=== PATIENT | male | born 1985 | race Caucasian/White ===

== ENCOUNTER 2020-02-19 01:20 | Emergency (ER) | payer OTHER ==
[~2020-02-19] VITALS: Ht 182.9 cm; Wt 100.9 kg
--- NOTE | 2020-02-19 01:23 | ED General ---
General Chief Complaint: Chest Pain Stated Complaint: CHEST PAIN Source of Information: Patient History of Present Illness Date Seen by Provider: Feb 19, 2020 Time Seen by Provider: 01:23 Initial Comments Patient is a 34-year-old otherwise healthy male who comes to the emergency department today complaining of sternal chest pain. He complains of pain of the left side of his chest and left-sided sternum. It is described to be dull achy pain. He has been having it for about one week. Pain is nonradiating. No aggravating or alleviating factors. No prior history of chronic health conditions with his doctor did recently started medication for anxiety of blood pressure, propranolol. No recent cough, fever, chills. Patient was evaluated by his primary doctor for the same complaint less than 48 hours earlier and it was felt at that time that his symptoms were secondary to anxiety. He comes to the ER tonight because he was sleeping and he awoke again with the same pain over the left side of his chest. He states the pain causes symptoms sometimes feel short of breath but he does not describe dyspnea on exertion or orthopnea. Allergies and Home Medications Allergies Coded Allergies: tramadol (Verified Allergy, Unknown, 02/19/20) Patient Home Medication List Home Medication List Reviewed: Yes Review of Systems Review of Systems Constitutional: no symptoms reported EENTM: no symptoms reported Respiratory: see HPI Cardiovascular: see HPI Gastrointestinal: no symptoms reported Genitourinary: no symptoms reported Musculoskeletal: no symptoms reported Skin: no symptoms reported Psychiatric/Neurological: Anxiety All Other Systems Reviewed Negative Unless Noted: Yes Physical Exam Vital Signs Vital Signs - First Documented 02/19/20 01:29 Temp 36.3 Pulse 81 Resp 18 B/P (MAP) 148/92 (110) Pulse Ox 98 O2 Delivery Room Air Capillary Refill : Height, Weight, BMI Height: '" Weight: lbs. oz. kg; BMI Method: General Appearance: No Apparent Distress, WD/WN HEENT: PERRL/EOMI, TMs Normal Neck: Full Range of Motion Respiratory: Lungs Clear, Normal Breath Sounds Cardiovascular: Regular Rate, Rhythm, No Edema Extremity: Normal Capillary Refill, No Calf Tenderness Neurologic/Psychiatric: Alert, Oriented x3 Skin: Normal Color, Warm/Dry Progress/Results/Core Measures Suspected Sepsis SIRS Temperature: Pulse: Respiratory Rate: Laboratory Tests 02/19/20 00:40: White Blood Count 3.9L Blood Pressure / Mean: Laboratory Tests 02/19/20 00:40: Platelet Count 43L 02/19/20 01:40: Creatinine 1.00 Results/Orders Lab Results Laboratory Tests Test 02/19/20 00:40 02/19/20 01:40 Range/Units White Blood Count 3.9 L 4.3-11.0 10^3/uL Red Blood Count 4.33 L 4.35-5.85 10^6/uL Hemoglobin 13.2 L 13.3-17.7 G/DL Hematocrit 40 40-54 % Mean Corpuscular Volume 92 80-99 FL Mean Corpuscular Hemoglobin 30 25-34 PG Mean Corpuscular Hemoglobin Concent 33 32-36 G/DL Red Cell Distribution Width 11.9 10.0-14.5 % Platelet Count 43 L 130-400 10^3/uL Mean Platelet Volume 13.0 H 7.4-10.4 FL Neutrophils (%) (Auto) 41 L 42-75 % Lymphocytes (%) (Auto) 47 H 12-44 % Monocytes (%) (Auto) 8 0-12 % Eosinophils (%) (Auto) 3 0-10 % Basophils (%) (Auto) 1 0-10 % Neutrophils # (Auto) 1.6 L 1.8-7.8 X 10^3 Lymphocytes # (Auto) 1.9 1.0-4.0 X 10^3 Monocytes # (Auto) 0.3 0.0-1.0 X 10^3 Eosinophils # (Auto) 0.1 0.0-0.3 10^3/uL Basophils # (Auto) 0.0 0.0-0.1 10^3/uL D-Dimer 0.14 0.00-0.49 UG/ML Sodium Level 138 135-145 MMOL/L Potassium Level 5.3 H 3.6-5.0 MMOL/L Chloride Level 104 98-107 MMOL/L Carbon Dioxide Level 23 21-32 MMOL/L Anion Gap 11 5-14 MMOL/L Blood Urea Nitrogen 17 7-18 MG/DL Creatinine 1.00 0.60-1.30 MG/DL Estimat Glomerular Filtration Rate > 60 BUN/Creatinine Ratio 17 Glucose Level 100 70-105 MG/DL Calcium Level 9.5 8.5-10.1 MG/DL Troponin I < 0.30 <0.30 NG/ML My Orders Orders - RUIZ,BOOM L DO Ed Iv/Invasive Line Start (02/19/20 01:23) Cbc With Automated Diff (02/19/20 01:23) Basic Metabolic Panel (02/19/20 01:23) Troponin I Fs (02/19/20 01:23) Ekg Tracing (02/19/20 01:23) Chest 1 View Ap/Pa Only (02/19/20 01:23) Fibrin Degradation Products (02/19/20 01:24) Vital Signs/I&O 02/19/20 02/19/20 01:29 01:29 Temp 36.3 Pulse 81 Resp 18 B/P (MAP) 148/92 (110) Pulse Ox 98 O2 Delivery Room Air Room Air Capillary Refill : Progress Note : Time: :30 Progress Note Patient is seen and examined. EKG is completed. No STEMI. We will check troponin and dimer and labs. Trachea also ordered. 02:20: All results are reviewed. Patient is resting comfortably and with normal vitals other than mildly elevated blood pressure. EKG is reassuring and no acute ST changes. Troponin is not elevated. Chest x-ray is nonacute. Dimer is not elevated. Unclear cause for his symptoms today but no emergency causes likely present for his chest pain. He is recommended to continue to follow the recommendations of his primary care physician, use Tylenol or Motrin for discomfort. Follow-up as needed. ECG Initial ECG Impression Date: Feb 19, 2020 Initial ECG Impression Time: 01:30 Initial ECG Rate: 70 Initial ECG Rhythm: Normal Sinus Departure Impression Primary Impression: Other chest pain Disposition: HOME, SELF-CARE Condition: Stable BOOM RUIZ DO Feb 19, 2020 01:23
--- OUTSIDE RECORDS SUMMARY | 2020-02-19 01:29 | XMS REPORT | Continuity of Care Document ---
Author Organization Unknown Address Unknown Phone Unavailable Allergies There is no data. Medications There is no data. Problems There is no data. Procedures There is no data. Results There is no data. Encounters ACCT No. Visit Date/Time Discharge Status Pt. Type Provider Facility Loc./Unit Complaint [id number] 02/19/2020 01:25:[address] Emergency BOOM RUIZ DO [facility] ER FS CHEST PAIN
[2020-02-19 01:55] LABS: BASOPHILS % (AUTO) 1 % (0-10); EOSINOPHILS # (AUTO) 0.1 10^3/uL (0.0-0.3); EOSINOPHILS % (AUTO) 3 % (0-10); HEMATOCRIT 40 % (40-54); HEMOGLOBIN 13.2 G/DL (13.3-17.7); LYMPHOCYTES # (AUTO) 1.9 X 10^3 (1.0-4.0); LYMPHOCYTES % (AUTO) 47 % (12-44); MEAN CORPUSCULAR HEMOGLOBIN 30 PG (25-34); MEAN CORPUSCULAR HGB CONC 33 G/DL (32-36); MEAN CORPUSCULAR VOLUME 92 FL (80-99); MONOCYTES # (AUTO) 0.3 X 10^3 (0.0-1.0); MONOCYTES % (AUTO) 8 % (0-12); NEUTROPHILS # (AUTO) 1.6 X 10^3 (1.8-7.8); NEUTROPHILS % (AUTO) 41 % (42-75); PLATELET COUNT 43 10^3/uL (130-400); RED CELL DISTRIBUTION WIDTH 11.9 % (10.0-14.5); WHITE BLOOD COUNT 3.9 10^3/uL (4.3-11.0)
[2020-02-19 02:08] LABS: BUN/CREATININE RATIO 17; CALCIUM 9.5 MG/DL (8.5-10.1); CARBON DIOXIDE 23 MMOL/L (21-32); CHLORIDE 104 MMOL/L (98-107); GFR ESTIMATED > 60; GLUCOSE 100 MG/DL (70-105); POTASSIUM 5.3 MMOL/L (3.6-5.0); SODIUM 138 MMOL/L (135-145)
[2020-02-19] MEDS ORDERED: IBUP-1780 PO (02:30)
[2020-02-19 02:32] VITALS: BP 117/79
--- NOTE | 2020-02-19 07:06 | Diagnostic Imaging Report ---
INDICATION: Chest pain. No prior examinations available for comparison. FINDINGS: The heart size, mediastinal configuration, and pulmonary vascularity are within normal limits. There is no pleural effusion, pneumothorax, or pneumonia. The osseous structures are unremarkable. IMPRESSION: No acute cardiopulmonary abnormality. Dictated by: Dictated on workstation # [id number]
== END 2020-02-19 02:32 | disposition home or self-care (01) ==
LOC: ER FS 01:25
DX: R07.89 Other chest pain (principal); Z88.5 Allergy status to narcotic agent
CPT/HCPCS: 36415; 71045; 80048; 84484; 85025; 85379; 93005

== ENCOUNTER 2020-02-23 08:38 | Outpatient (RCR) | payer OTHER ==
[~2020-02-23 08:38] MED LIST: IBUP-1780 PO
== END 2020-05-23 | disposition home or self-care (01) ==
LOC: CARD 08:38
PROVIDERS: ATTEND Nurse Practitioner
DX: R00.2 Palpitations (principal)
CPT/HCPCS: 93225; 93226

== ENCOUNTER → 2020-02-29 | Outpatient (CLI) | payer OTHER | LOC: CARD 09:30 | PROVIDERS: ATTEND Internal Medicine Cardiovascular Disease | DX: I34.0 Nonrheumatic mitral (valve) insufficiency (principal); I51.7 Cardiomegaly; E66.9 Obesity, unspecified; R00.2 Palpitations | CPT/HCPCS: 93017; 93306 ==

== ENCOUNTER 2020-09-24 01:33 | Emergency (ER) | payer OTHER ==
--- NOTE | 2020-09-24 01:58 | ED Chest Pain ---
General Chief Complaint: Chest Pain Stated Complaint: CHEST TIGHTNESS Nursing Triage Note: Pt complaining of chest tightness that has been intermittent throughout the day and worse tonight Nursing Sepsis Screen: No Definite Risk Source: patient Exam Limitations: no limitations History of Present Illness Date Seen by Provider: Sep 24, 2020 Time Seen by Provider: 01:49 35-year-old male with history of hypertension, depression and anxiety presents with chest pain. Patient states that the pain has been present intermittently for about 3 days. Describes the pain as sharp, tight, cold, does not radiate, not associated with nausea, vomiting, shortness of air, located left upper chest, reproducible to palpation, nonexertional, not alleviated or aggravated by anything. Patient does not have a history of diabetes, alcohol use, tobacco use, drug use. No family history of coronary artery disease. No other complaints. No personal history of CAD. Of note, patient has a history of anxiety and recently started taking citalopram. Allergies and Home Medications Allergies Coded Allergies: tramadol (Verified Allergy, Unknown, 02/19/20) Home Medications Ibuprofen 800 Mg Tablet, 800 MG PO Q8H PRN for PAIN Prescribed by: BOOM RUIZ on 02/19/20 0230 Patient Home Medication List Home Medication List Reviewed: Yes Review of Systems Review of Systems Constitutional: No chills, No fever EENTM: No Blurred Vision, No Double Vision Respiratory: Denies Cough, Denies Shortness of Air Cardiovascular: Chest Pain; Denies Irregular Heart Rate, Denies Lightheadedness Gastrointestinal: Denies Abdominal Pain, Denies Nausea, Denies Vomiting Skin: No change in color, No lesions, No rash Psychiatric/Neurological: Denies Headache, Denies Numbness, Denies Tingling All Other Systems Reviewed Negative Unless Noted: Yes Past Mtctlat-Asbvje-Gsbwaf Hx Past Med/Social Hx: Reviewed Nursing Past Med/Soc Hx Patient Social History Alcohol Use: Denies Use Smoking Status: Never a Smoker 2nd Hand Smoke Exposure: No Recent Infectious Disease Expo: No Recent Hopitalizations: No Seasonal Allergies Seasonal Allergies: No Past Medical History Surgeries: No Respiratory: No Cardiac: No Neurological: No Genitourinary: No Gastrointestinal: Yes Gastroesophageal Reflux Musculoskeletal: No Endocrine: No HEENT: No Cancer: No Psychosocial: No Integumentary: No Blood Disorders: No Family Medical History Reviewed Nursing Family Hx Physical Exam Vital Signs Vital Signs - First Documented 3/15/21 01:35 Temp 36.2 Pulse 63 Resp 16 B/P (MAP) 114/67 (83) Pulse Ox 95 O2 Delivery Room Air Capillary Refill : Less Than 3 Seconds Height, Weight, BMI Height: '" Weight: lbs. oz. kg; 30.00 BMI Method: General Appearance: No Apparent Distress, WD/WN HEENT: PERRL/EOMI, Normal ENT Inspection Neck: Normal Inspection, Non Tender, Supple Respiratory: Lungs Clear, Normal Breath Sounds, Other (chest ttp) Cardiovascular: Regular Rate, Rhythm, No Edema, No Murmur, Normal Peripheral Pulses Gastrointestinal: Normal Bowel Sounds, No Organomegaly Extremity: Normal Capillary Refill, Normal Inspection Neurologic/Psychiatric: Alert, Oriented x3, No Motor/Sensory Deficits, Normal Mood/Affect, cylinder checker II-XII Norm as Tested Skin: Normal Color, Warm/Dry Lymphatic: No Adenopathy Progress/Results/Core Measures Results/Orders Lab Results Laboratory Tests Test 09/24/20 01:48 09/24/20 03:20 Range/Units White Blood Count 7.2 4.3-11.0 10^3/uL Red Blood Count 4.72 4.35-5.85 10^6/uL Hemoglobin 14.2 13.3-17.7 G/DL Hematocrit 42 40-54 % Mean Corpuscular Volume 90 80-99 FL Mean Corpuscular Hemoglobin 30 25-34 PG Mean Corpuscular Hemoglobin Concent 34 32-36 G/DL Red Cell Distribution Width 11.9 10.0-14.5 % Platelet Count 294 130-400 10^3/uL Mean Platelet Volume 9.6 7.4-10.4 FL Immature Granulocyte % (Auto) 1 % Neutrophils (%) (Auto) 48 42-75 % Lymphocytes (%) (Auto) 40 12-44 % Monocytes (%) (Auto) 8 0-12 % Eosinophils (%) (Auto) 4 0-10 % Basophils (%) (Auto) 1 0-10 % Neutrophils # (Auto) 3.4 1.8-7.8 X 10^3 Lymphocytes # (Auto) 2.9 1.0-4.0 X 10^3 Monocytes # (Auto) 0.6 0.0-1.0 X 10^3 Eosinophils # (Auto) 0.3 0.0-0.3 10^3/uL Basophils # (Auto) 0.1 0.0-0.1 10^3/uL Immature Granulocyte # (Auto) 0.0 0.0-0.1 10^3/uL Prothrombin Time 12.8 12.2-14.7 SEC INR Comment 0.9 0.8-1.4 Sodium Level 137 135-145 MMOL/L Potassium Level 3.9 3.6-5.0 MMOL/L Chloride Level 101 98-107 MMOL/L Carbon Dioxide Level 25 21-32 MMOL/L Anion Gap 11 5-14 MMOL/L Blood Urea Nitrogen 15 7-18 MG/DL Creatinine 1.05 0.60-1.30 MG/DL Estimat Glomerular Filtration Rate > 60 BUN/Creatinine Ratio 14 Glucose Level 114 H 70-105 MG/DL Calcium Level 9.2 8.5-10.1 MG/DL Corrected Calcium 9.0 8.5-10.1 MG/DL Magnesium Level 2.0 1.6-2.4 MG/DL Total Bilirubin 0.4 0.1-1.0 MG/DL Aspartate Amino Transf (AST/SGOT) 17 5-34 U/L Alanine Aminotransferase (ALT/SGPT) 21 0-55 U/L Alkaline Phosphatase 50 40-136 U/L Troponin I < 0.30 < 0.30 <0.30 NG/ML Total Protein 7.0 6.4-8.2 GM/DL Albumin 4.2 3.2-4.5 GM/DL Lipase 48 8-78 U/L My Orders Orders - ANNA HINSON MD Cbc With Automated Diff (09/24/20:52) Magnesium (09/24/20:52) Chest 1 View Ap/Pa Only (09/24/20:52) Ekg Tracing (09/24/20:52) Comprehensive Metabolic Panel (09/24/20:52) Protime With Inr (09/24/20:52) O2 (09/24/20:52) Monitor-Rhythm Ecg Trace Only (09/24/20:52) Aspirin Chewable Tablet (Baby Aspirin Ch (09/24/20 02:00) Ed Iv/Invasive Line Start (09/24/20:52) Lipase (09/24/20:52) Troponin I Fs (3/15/21 01:52) Troponin I Fs (09/24/20 03:15) Ekg Tracing (09/24/20 03:33) Lactated Ringers (Lr 1000 Ml Iv Solution (09/24/20 05:00) Lidocaine 2% Viscous 15 Ml (Xylocaine Vi (09/24/20 04:47) Antacid Suspension (Mylanta Suspension (09/24/20 04:47) Antacid Suspension (Mylanta Suspension (09/24/20 05:00) Lidocaine 2% Viscous 15 Ml (Xylocaine Vi (09/24/20 05:00) Ondansetron Injection (Zofran Injectio (09/24/20 05:00) Ondansetron Injection (Zofran Injectio (09/24/20 04:55) Medications Given in ED Current Medications Medications Dose Ordered Sig/Nishant Route Start Time Stop Time Status Last Admin Dose Admin Al Hydrox/Mg Hydrox/Simethicone 30 ml ONCE ONCE PO 09/24/20 05:00 09/24/20 05:01 DC 09/24/20 04:59 30 ML Aspirin 324 mg ONCE ONCE PO 09/24/20 02:00 09/24/20 02:01 DC 09/24/20 01:58 324 MG Lidocaine HCl 15 ml ONCE ONCE PO 09/24/20 05:00 09/24/20 05:01 DC 09/24/20 04:59 15 ML Ondansetron HCl 4 mg ONCE ONCE IVP 09/24/20 05:00 09/24/20 05:01 DC 09/24/20 05:01 4 MG Vital Signs/I&O 09/24/20 01:35 Temp 36.2 Pulse 63 Resp 16 B/P (MAP) 114/67 (83) Pulse Ox 95 O2 Delivery Room Air 2 Blood Pressure Mean: 83 Progress Progress Note : Progress Note 0300 - pt remains chest pain free. discussed repeating troponin. pt voiced agreement 0400 - pt remains chest pain free. repeat troponin unchanged. called pt's hydroponics grower x 2, no answer and no way to leave message 0430 - contact refrigeration houseman who will get in contact with cardiology 0445 - troponin values reported by lab has been amended by lab from 0.3 to <0.3. discussed with patient who still feels lightheaded. stood patient to check bp and he felt dizzy, hr dropped to 50s, and bp 90s systolic. IVF started. discussed need to see pcp about med changes. 0550 - patient chest pain free, blood pressure 120s, patient feels much better after ivf 35-year-old male presenting with chest pain and dizziness. EKG and troponin negative for ACS. Chest x-ray negative for pneumonia, pleural effusion, pneumothorax. Lab work-up reassuring this is not pancreatitis, kidney problems. Patient orthostatic on standing and feels better after IV fluids, IV antiemetics, and GI cocktail. Discussed need for medication management and likely will need to come off his beta-yoav or at a minimum decrease the dose. Discussed with patient and patient's father who both voiced understanding and agreement with plan of care Initial ECG Impression Date: Sep 24, 2020 Initial ECG Impression Time: 01:38 Initial ECG Rate: 59 Initial ECG Rhythm: Normal Sinus Initial ECG Intervals: Normal Initial ECG Impression: Normal, Nonspecific Changes Initial ECG Comparisson: Unchanged EKG : EKG Time: 03:34 Rate: 64 Rhythm: Normal Sinus Intervals: Normal, IN, QRS ECG Comparisson: Unchanged ECG Impression: Normal Diagnostic Imaging Diagonstic Imaging: Xray Plain Films/CT/US/NM/MRI: chest Comments negative for acute cardiopulmonary pathology Departure Impression Primary Impression: Chest pain Qualified Codes: R07.9 - Chest pain, unspecified Additional Impressions: Orthostatic dizziness Drug interaction Disposition: 01 HOME, SELF-CARE Condition: Improved Departure-Patient Inst. Decision time for Depature: 05:52 Referrals: NO,LOCAL PHYSICIAN (PCP/Family) Primary Care Physician Patient Instructions: Chest Pain That Is Not Caused by the Heart (DC), Dizziness, Nonvertigo, (DC) ANNA HINSON MD Sep 24, 2020 01:58
[2020-09-24] MEDS ORDERED: ASPIRIN 81 MG CHEW (CHILDREN'S ASA) PO ONE (02:00)
[2020-09-24 02:22] LABS: HEMATOCRIT 42 % (40-54); HEMOGLOBIN 14.2 G/DL (13.3-17.7); MEAN CORPUSCULAR HEMOGLOBIN 30 PG (25-34); WHITE BLOOD COUNT 7.2 10^3/uL (4.3-11.0)
[2020-09-24 02:23] LABS: BASOPHILS # (AUTO) 0.1 10^3/uL (0.0-0.1); BASOPHILS % (AUTO) 1 % (0-10); EOSINOPHILS # (AUTO) 0.3 10^3/uL (0.0-0.3); EOSINOPHILS % (AUTO) 4 % (0-10); LYMPHOCYTES # (AUTO) 2.9 X 10^3 (1.0-4.0); LYMPHOCYTES % (AUTO) 40 % (12-44); MEAN CORPUSCULAR HGB CONC 34 G/DL (32-36); MEAN CORPUSCULAR VOLUME 90 FL (80-99); MEAN PLATELET VOLUME 9.6 FL (7.4-10.4); MONOCYTES # (AUTO) 0.6 X 10^3 (0.0-1.0); MONOCYTES % (AUTO) 8 % (0-12); NEUTROPHILS # (AUTO) 3.4 X 10^3 (1.8-7.8); NEUTROPHILS % (AUTO) 48 % (42-75); PLATELET COUNT 294 10^3/uL (130-400)
[2020-09-24 02:48] LABS: CARBON DIOXIDE 25 MMOL/L (21-32); CHLORIDE 101 MMOL/L (98-107); POTASSIUM 3.9 MMOL/L (3.6-5.0); SODIUM 137 MMOL/L (135-145)
[2020-09-24 02:49] LABS: ALANINE AMINOTRANSFERASE 21 U/L (0-55); ALKALINE PHOSPHATASE 50 U/L (40-136); BILIRUBIN,TOTAL 0.4 MG/DL (0.1-1.0); BUN/CREATININE RATIO 14; CALCIUM 9.2 MG/DL (8.5-10.1); CREATININE SERUM 1.05 MG/DL (0.60-1.30); GFR ESTIMATED > 60; GLUCOSE 114 MG/DL (70-105)
[2020-09-24 02:50] LABS: ALBUMIN 4.2 GM/DL (3.2-4.5); LIPASE 48 U/L (8-78)
[2020-09-24 03:03] LABS: INR 0.9 (0.8-1.4); PROTHROMBIN TIME PATIENT 12.8 SEC (12.2-14.7)
[2020-09-24] MEDS ORDERED: ANTACID SUSP 30 ML UDC (MYLANTA) ONE (04:47)
[2020-09-24] MEDS ORDERED: LIDOCAINE 2% VISCOUS 15 ML UDC ONE (04:47)
[2020-09-24] MEDS ORDERED: ONDANSETRON 4 MG/2 ML (SDV) Z0FRAN ONE (04:55)
[2020-09-24] MEDS ORDERED: ONDANSETRON 4 MG/2 ML (SDV) Z0FRAN IVP ONE (05:00)
[2020-09-24] MEDS ORDERED: LACTATED RINGERS 1,000 ML IV SCH (05:00)
[2020-09-24] MEDS ORDERED: ANTACID SUSP 30 ML UDC (MYLANTA) PO ONE (05:00)
[2020-09-24] MEDS ORDERED: LIDOCAINE 2% VISCOUS 15 ML UDC PO ONE (05:00)
[2020-09-24] MEDS ORDERED: LIDOCAINE/ANTACID/DIPHENHYDRAMINE 1:1:1 PO PRN (05:00)
[2020-09-24 05:54] VITALS: BP 131/86
--- NOTE | 2020-09-24 06:58 | Diagnostic Imaging Report ---
Indication: Chest pain Comparison: 02/19/2020 Findings: Single view of the chest demonstrates clear lungs bilaterally. The heart is normal. There is no pneumothorax. Osseous structures normal. Impression: Negative chest Dictated by: Dictated on workstation # [id number]
== END 2020-09-24 06:02 | disposition home or self-care (01) ==
LOC: EDUNIT# 01:33 → ER FS 01:37
DX: R07.9 Chest pain, unspecified (principal); R42 Dizziness and giddiness; F41.9 Anxiety disorder, unspecified; Z88.5 Allergy status to narcotic agent
CPT/HCPCS: 36415; 71045; 80053; 83690; 83735; 84484; 85025; 85610; 93005; 93041

== ENCOUNTER 2021-03-30 04:05 | Emergency (ER) | payer OTHER ==
[~2021-03-30] VITALS: Ht 182.8 cm; Wt 102.2 kg
[2021-03-30] MEDS ORDERED: NS IV 1000 ML 1,000 ML IV STA (04:27)
--- NOTE | 2021-03-30 04:33 | ED General ---
General Chief Complaint: Chest Pain Stated Complaint: CHEST PAIN/LEFT ARM ACHING Source of Information: Patient History of Present Illness Date Seen by Provider: Mar 30, 2021 Time Seen by Provider: 04:07 Initial Comments 36-year-old male presenting with complaints of feeling his heart pounding and racing intermittently overnight. He states his symptoms started around 7 PM and persisted all night. He has some mild shortness of breath and cough. He denies any fever or chills. He states that he had some cough shortness of breath with allergy symptoms. He has been on metoprolol for a year or more to help with his blood pressure and heart rate. He states that his smart watch in the morning and show that his heart rate at times is gone up over 120 especially with activity. He does get some dizzy lightheaded sensation with change in position but it is better to some degree all the time since last night. He had some mild nausea with his symptoms started but never had any vomiting. Timing/Duration: 4-6 Hours Severity: Moderate Associated Systoms: Chest Pain (Pressure and sensation of his heart pounding), Cough (Occasional intermittent cough); No Diaphoresis, No Fever/Chills, No Headaches, No Loss of Appetite, No Malaise; Nausea/Vomiting (Nausea with the symptoms started but none now. No vomiting.); No Rash, No Seizure; Shortness of Air (Mild shortness of breath with allergy symptoms); No Syncope, No Weakness Allergies and Home Medications Allergies Coded Allergies: tramadol (Verified Allergy, Unknown, 02/19/20) Patient Home Medication List Home Medication List Reviewed: Yes Ibuprofen (Ibuprofen) 800 Mg Tablet, 800 MG PO Q8H PRN for PAIN Prescribed by: BOOM RUIZ on 02/19/20 0230 Pantoprazole Sodium (Pantoprazole Sodium) 40 Mg Tablet.dr, 40 MG PO DAILY Prescribed by: NURYS PARKS on 03/30/21 0587 Review of Systems Review of Systems Constitutional: see HPI; No chills, No fever EENTM: no symptoms reported Respiratory: see HPI Cardiovascular: see HPI; No edema; palpitations; No syncope Gastrointestinal: see HPI, nausea; No vomiting Genitourinary: no symptoms reported Musculoskeletal: other (Aching into his left arm) Skin: no symptoms reported Psychiatric/Neurological: No Symptoms Reported Past Mygbsvq-Bxbyrb-Enitvn Hx Patient Social History Tobacco Use?: No Use of E-Cig and/or Vaping dev: No Substance use?: No Alcohol Use?: No Pt feels they are or have been: No Seasonal Allergies Seasonal Allergies: No Past Medical History Surgeries: No Respiratory: No Cardiac: No Neurological: No Genitourinary: No Gastrointestinal: Yes Gastroesophageal Reflux Musculoskeletal: No Endocrine: No HEENT: No Cancer: No Psychosocial: No Integumentary: No Blood Disorders: No Physical Exam Vital Signs Vital Signs - First Documented 03/30/21 04:10 Temp 36.5 Pulse 88 Resp 15 B/P (MAP) 128/90 (103) Pulse Ox 96 O2 Delivery Room Air Capillary Refill : Less Than 3 Seconds Height, Weight, BMI Height: '" Weight: lbs. oz. 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 Norm as Tested Skin: Normal Color, Warm/Dry Progress/Results/Core Measures Suspected Sepsis SIRS Temperature: Pulse: Respiratory Rate: Laboratory Tests 03/30/21 04:18: White Blood Count 7.7 Blood Pressure / Mean: Laboratory Tests 03/30/21 04:18: Creatinine 1.01, INR Comment 0.9, Platelet Count 274, Total Bilirubin 0.5 Results/Orders Lab Results Laboratory Tests Test 03/30/21 04:18 Range/Units White Blood Count 7.7 4.3-11.0 10^3/uL Red Blood Count 4.82 4.30-5.52 10^6/uL Hemoglobin 14.7 13.3-17.7 g/dL Hematocrit 44 40-54 % Mean Corpuscular Volume 91 80-99 fL Mean Corpuscular Hemoglobin 30 25-34 pg Mean Corpuscular Hemoglobin Concent 34 32-36 g/dL Red Cell Distribution Width 12.9 10.0-14.5 % Platelet Count 274 130-400 10^3/uL Mean Platelet Volume 9.3 9.0-12.2 fL Neutrophils (%) (Auto) 54 42-75 % Lymphocytes (%) (Auto) 33 12-44 % Monocytes (%) (Auto) 9 0-12 % Eosinophils (%) (Auto) 4 0-10 % Basophils (%) (Auto) 1 0-10 % Neutrophils # (Auto) 4.1 1.8-7.8 X 10^3 Lymphocytes # (Auto) 2.6 1.0-4.0 X 10^3 Monocytes # (Auto) 0.7 0.0-1.0 X 10^3 Eosinophils # (Auto) 0.3 0.0-0.3 10^3/uL Basophils # (Auto) 0.1 0.0-0.1 10^3/uL Prothrombin Time 12.0 L 12.2-14.7 SEC INR Comment 0.9 0.8-1.4 Activated Partial Thromboplast Time 32 24-35 SEC Sodium Level 142 135-145 MMOL/L Potassium Level 3.5 L 3.6-5.0 MMOL/L Chloride Level 102 98-107 MMOL/L Carbon Dioxide Level 29 21-32 MMOL/L Anion Gap 11 5-14 MMOL/L Blood Urea Nitrogen 15 7-18 MG/DL Creatinine 1.01 0.60-1.30 MG/DL Estimat Glomerular Filtration Rate 83 BUN/Creatinine Ratio 15 Glucose Level 96 70-105 MG/DL Calcium Level 10.1 8.5-10.1 MG/DL Corrected Calcium 9.7 8.5-10.1 MG/DL Magnesium Level 1.9 1.6-2.4 MG/DL Total Bilirubin 0.5 0.1-1.0 MG/DL Aspartate Amino Transf (AST/SGOT) 21 5-34 U/L Alanine Aminotransferase (ALT/SGPT) 23 0-55 U/L Alkaline Phosphatase 53 40-136 U/L Troponin I < 0.30 <0.30 NG/ML Pro-B-Type Natriuretic Peptide 23.6 <75.0 PG/ML Total Protein 7.3 6.4-8.2 GM/DL Albumin 4.5 3.2-4.5 GM/DL My Orders Orders - NURYS PARKS MD Cbc With Automated Diff (03/30/21 04:26) Magnesium (03/30/21 04:26) Chest 1 View Ap/Pa Only (03/30/21 04:26) Ekg Tracing (03/30/21 04:26) Comprehensive Metabolic Panel (03/30/21 04:26) Protime With Inr (03/30/21 04:26) Partial Thromboplastin Time (03/30/21 04:26) Monitor-Rhythm Ecg Trace Only (03/30/21 04:26) Ed Iv/Invasive Line Start (03/30/21 04:26) Troponin I Fs (03/30/21 04:26) Probnp Fs (03/30/21 04:26) Ns Iv 1000 Ml (Sodium Chloride 0.9%) (03/30/21 04:27) Pantoprazole Injection (Protonix Injecti (03/30/21 04:53) Lidocaine 2% Viscous 15 Ml (Xylocaine Vi (03/30/21 05:18) Antacid Suspension (Mylanta Suspension (03/30/21 05:18) Vital Signs/I&O 03/30/21 04:10 Temp 36.5 Pulse 88 Resp 15 B/P (MAP) 128/90 (103) Pulse Ox 96 O2 Delivery Room Air Capillary Refill : Less Than 3 Seconds Progress Note #1: Progress Note Obtain electrocardiogram as well as chest x-ray and basic labs. Give a liter of fluid for hydration increasing labetalol to try with the dizziness when he changes positions. 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 Review of the chart as he states he saw Dr. Persaud years ago had a Holter monitor done. Progress Note #2: Progress Note Labs all appear stable mildly low potassium at 3.5. He has negative troponin at less than 0.3. His electrocardiogram appears stable from previous tracings in the system. He has no infiltrate on his chest x-ray but it does look like there might be a small hiatal hernia which could contribute to his symptoms. When ask ed about this and heartburn he does relate that he has had severe heartburn ever since he was a child. We will give a dose of Protonix and try a GI cocktail as he stated that in the past. Counseled on treatment for hiatal hernia and reflux. Advised to follow-up through the clinic and he might need a GI endoscopy scope to look at the esophagus and stomach. Given handout about potassium rich diet, gastritis and ulcer diet, hiatal hernia, palpitations ECG Initial ECG Impression Date: Mar 30, 2021 Initial ECG Impression Time: 04:09 Initial ECG Rate: 79 Initial ECG Rhythm: Normal Sinus Initial ECG Comparisson: Unchanged Comment Normal sinus rhythm with a heart rate of 79 bpm. NE interval [address] elevation. There are old Q waves in 2 3 and aVF. He has QT interval of 370 ms and a QTc interval of 425 ms. Appears similar to prior tracings in the system. Diagnostic Imaging Diagonstic Imaging: Xray Plain Films/CT/US/NM/MRI: chest Comments On my review of his 1 view chest x-ray is no acute change or effusion. Heart size is normal. It looks like he may have a small gas bubble for a possible hiatal hernia. Reviewed: Reviewed by Me Departure Impression Primary Impression: Heart palpitations Additional Impressions: Hypokalemia Hiatal hernia with GERD and esophagitis Disposition: HOME, SELF-CARE Condition: Stable Departure-Patient Inst. Decision time for Depature: 05:44 Referrals: JERMAINE KONG PANKAJ K MD NO,LOCAL PHYSICIAN (PCP) Primary Care Physician Patient Instructions: Acid Reflux, Adult and Adolescent ED, Hiatal Hernia (DC), High Potassium Diet, Palpitations ED, Ulcer and Gastritis Diet Add. Discharge Instructions: Try the medicine for acid reduction and helping with heartburn and hiatal hernia. Follow bland gastritis diet recommendations to help with heartburn and irritation to esophagus and stomach. Increase the potassium in your diet by adding potassium rich foods. Check with Dr. Nelson or call surgeon's office directly about EGD scope to look at lining of stomach and esophagus. Dr. Kong is the surgeon occupational therapist rehab manager this weekend. All discharge instructions reviewed with patient and/or family. Voiced understanding. Scripts Pantoprazole Sodium (Pantoprazole Sodium) 40 Mg Tablet. 40 MG PO DAILY for Hiatal Hernia/GERD for 30 Days, #30 TAB Prov: NURYS PARKS MD 03/30/21 Work/School Note: Work Release Form Date Seen in the Emergency Department: Mar 30, 2021 Return to Work: Mar 31, 2021 Restrictions: No Restrictions NURYS PARKS MD Mar 30, 2021 04:33
[2021-03-30 04:34] LABS: EOSINOPHILS % (AUTO) 4 % (0-10); HEMATOCRIT 44 % (40-54); HEMOGLOBIN 14.7 g/dL (13.3-17.7); LYMPHOCYTES % (AUTO) 33 % (12-44); MEAN CORPUSCULAR HEMOGLOBIN 30 pg (25-34); MEAN CORPUSCULAR HGB CONC 34 g/dL (32-36); MEAN CORPUSCULAR VOLUME 91 fL (80-99); MEAN PLATELET VOLUME 9.3 fL (9.0-12.2); MONOCYTES % (AUTO) 9 % (0-12); NEUTROPHILS % (AUTO) 54 % (42-75); PLATELET COUNT 274 10^3/uL (130-400); WHITE BLOOD COUNT 7.7 10^3/uL (4.3-11.0)
[2021-03-30 04:35] LABS: BASOPHILS # (AUTO) 0.1 10^3/uL (0.0-0.1); BASOPHILS % (AUTO) 1 % (0-10); EOSINOPHILS # (AUTO) 0.3 10^3/uL (0.0-0.3); LYMPHOCYTES # (AUTO) 2.6 X 10^3 (1.0-4.0); MONOCYTES # (AUTO) 0.7 X 10^3 (0.0-1.0); NEUTROPHILS # (AUTO) 4.1 X 10^3 (1.8-7.8)
[2021-03-30 04:52] LABS: POTASSIUM 3.5 MMOL/L (3.6-5.0)
[2021-03-30 04:53] LABS: ALBUMIN 4.5 GM/DL (3.2-4.5); BILIRUBIN,TOTAL 0.5 MG/DL (0.1-1.0); CALCIUM 10.1 MG/DL (8.5-10.1); CREATININE SERUM 1.01 MG/DL (0.60-1.30); MAGNESIUM 1.9 MG/DL (1.6-2.4); TOTAL PROTEIN 7.3 GM/DL (6.4-8.2)
[2021-03-30] MEDS ORDERED: PANTOPRAZOLE 40 MG (PROTONIX) VIAL IV STA (04:53)
[2021-03-30 04:55] LABS: INR 0.9 (0.8-1.4)
[2021-03-30] MEDS ORDERED: LIDOCAINE 2% VISCOUS 15 ML UDC PO STA (05:18)
[2021-03-30] MEDS ORDERED: ANTACID SUSP 30 ML UDC (MYLANTA) PO STA (05:18)
[2021-03-30] MEDS ORDERED: PANT40TA52 PO (05:44)
--- NOTE | 2021-03-30 06:05 | Diagnostic Imaging Report ---
INDICATION: Chest pain, palpitations, left arm aching.. TECHNIQUE: Single view chest 4:20 AM. CORRELATION STUDY: 09/24/2020 FINDINGS: The heart size, mediastinal configuration and pulmonary vascularity are within normal limits. The lungs are clear with no consolidating infiltrate. There is no significant effusion or pneumothorax. IMPRESSION: 1. Negative appearing portable chest. Dictated by: Dictated on workstation # [id number]
[2021-03-30 06:10] VITALS: BP 116/77
== END 2021-03-30 06:01 | disposition home or self-care (01) ==
LOC: EDUNIT# 04:05 → ER FS 04:08
DX: R00.2 Palpitations (principal); E87.6 Hypokalemia; K44.9 Diaphragmatic hernia without obstruction or gangrene; K21.00 Gastro-esophageal reflux disease with esophagitis, without bleeding
CPT/HCPCS: 36415; 71045; 80053; 83735; 83880; 84484; 85025; 85610; 85730; 93005; 93041

== ENCOUNTER 2021-03-31 09:08 | Emergency (ER) | payer OTHER ==
[~2021-03-31] VITALS: Ht 182.9 cm; Wt 101.4 kg
[~2021-03-31 09:08] MED LIST changes: +PANT40TA52 PO
[2021-03-31] MEDS ORDERED: NS IV 1000 ML 1,000 ML IV STA (09:28)
[2021-03-31] MEDS ORDERED: PANTOPRAZOLE 40 MG (PROTONIX) VIAL IV STA (09:28)
[2021-03-31] MEDS ORDERED: KETOROLAC 30 MG/ML VIAL IVP STA (09:28)
[2021-03-31] MEDS ORDERED: ONDANSETRON 4 MG/2 ML (SDV) Z0FRAN IVP STA (09:28)
--- NOTE | 2021-03-31 09:34 | ED General ---
General Chief Complaint: Chest Pain Stated Complaint: CHEST PAIN/SOA/NAUSEA Source of Information: Patient, Old Records History of Present Illness Date Seen by Provider: Mar 31, 2021 Time Seen by Provider: 09:10 Initial Comments 36-year-old male presenting with recurrent and continuing left-sided chest discomfort and feeling like his heart is pounding. He had an episode of nausea with vomiting this morning. He gets short of breath and feels like his heart races especially when he stands up or is exerting himself. He denies any fever or chills. He had some loose stools. He denies pain or burning with urination. He states this all feels similar to his prior episodes as well as when he was seen yesterday but it usually goes away by now. When he tried to return to work today he was unable to do that because he was so nauseated and lightheaded when trying to stand and move around. He states he was having issues overnight all night that kept him from sleeping. Associated Systoms: Chest Pain (LUQ and Left lower chest and epigastric abdomen), Diaphoresis (reports sweating with increased pain at night when he lays down); No Fever/Chills, No Headaches; Loss of Appetite, Malaise, Nausea/Vomiting; No Seizure; Shortness of Air; No Syncope, No Weakness Allergies and Home Medications Allergies Coded Allergies: tramadol (Verified Allergy, Unknown, 02/19/20) Patient Home Medication List Home Medication List Reviewed: Yes Ibuprofen (Ibuprofen) 800 Mg Tablet, 800 MG PO Q8H PRN for PAIN Prescribed by: BOOM RUIZ on 02/19/20 0230 Pantoprazole Sodium (Pantoprazole Sodium) 40 Mg Tablet.dr, 40 MG PO DAILY Prescribed by: NURYS PARKS on 03/30/21 0533 Review of Systems Review of Systems Constitutional: No chills, No fever EENTM: no symptoms reported Respiratory: short of breath (Especially with exertion) Cardiovascular: see HPI Gastrointestinal: see HPI Genitourinary: no symptoms reported Musculoskeletal: no symptoms reported Skin: no symptoms reported Psychiatric/Neurological: Anxiety (Worried about what was causing his symptoms.) Hematologic/Lymphatic: Denies Blood Clots, Denies Easy Bleeding, Denies Easy Bruising Past Jliffpm-Pithdz-Isugkp Hx Seasonal Allergies Seasonal Allergies: No Past Medical History Surgeries: No Respiratory: No Cardiac: No Neurological: No Genitourinary: No Gastrointestinal: Yes Gastroesophageal Reflux Musculoskeletal: No Endocrine: No HEENT: No Cancer: No Psychosocial: No Integumentary: No Blood Disorders: No Physical Exam Vital Signs Vital Signs - First Documented 03/31/21 09:16 Temp 37.2 Pulse 85 Resp 16 B/P (MAP) 114/79 (91) Pulse Ox 96 O2 Delivery Room Air Capillary Refill : Height, Weight, BMI Height: '" Weight: lbs. oz. 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 Norm as Tested Skin: Normal Color, Warm/Dry Progress/Results/Core Measures Suspected Sepsis SIRS Temperature: Pulse: Respiratory Rate: Laboratory Tests 03/31/21 10:00: White Blood Count 6.3 Blood Pressure / Mean: Laboratory Tests 03/31/21 10:00: Creatinine 1.00, INR Comment 0.9, Platelet Count 304, Total Bilirubin 0.4 Results/Orders Lab Results Laboratory Tests Test 03/31/21 10:00 Range/Units White Blood Count 6.3 4.3-11.0 10^3/uL Red Blood Count 4.82 4.30-5.52 10^6/uL Hemoglobin 14.4 13.3-17.7 g/dL Hematocrit 43 40-54 % Mean Corpuscular Volume 90 80-99 fL Mean Corpuscular Hemoglobin 30 25-34 pg Mean Corpuscular Hemoglobin Concent 33 32-36 g/dL Red Cell Distribution Width 12.4 10.0-14.5 % Platelet Count 304 130-400 10^3/uL Mean Platelet Volume 9.3 9.0-12.2 fL Immature Granulocyte % (Auto) 1 % Neutrophils (%) (Auto) 68 42-75 % Lymphocytes (%) (Auto) 23 12-44 % Monocytes (%) (Auto) 6 0-12 % Eosinophils (%) (Auto) 2 0-10 % Basophils (%) (Auto) 1 0-10 % Neutrophils # (Auto) 4.3 1.8-7.8 X 10^3 Lymphocytes # (Auto) 1.5 1.0-4.0 X 10^3 Monocytes # (Auto) 0.4 0.0-1.0 X 10^3 Eosinophils # (Auto) 0.1 0.0-0.3 10^3/uL Basophils # (Auto) 0.0 0.0-0.1 10^3/uL Immature Granulocyte # (Auto) 0.0 0.0-0.1 10^3/uL Prothrombin Time 12.7 12.2-14.7 SEC INR Comment 0.9 0.8-1.4 Activated Partial Thromboplast Time 32 24-35 SEC Sodium Level 139 135-145 MMOL/L Potassium Level 4.1 3.6-5.0 MMOL/L Chloride Level 101 98-107 MMOL/L Carbon Dioxide Level 29 21-32 MMOL/L Anion Gap 9 5-14 MMOL/L Blood Urea Nitrogen 9 7-18 MG/DL Creatinine 1.00 0.60-1.30 MG/DL Estimat Glomerular Filtration Rate 84 BUN/Creatinine Ratio 9 Glucose Level 92 70-105 MG/DL Calcium Level 9.7 8.5-10.1 MG/DL Corrected Calcium 9.3 8.5-10.1 MG/DL Magnesium Level 2.1 1.6-2.4 MG/DL Total Bilirubin 0.4 0.1-1.0 MG/DL Aspartate Amino Transf (AST/SGOT) 22 5-34 U/L Alanine Aminotransferase (ALT/SGPT) 26 0-55 U/L Alkaline Phosphatase 50 40-136 U/L Troponin I < 0.30 <0.30 NG/ML Pro-B-Type Natriuretic Peptide 50.3 <75.0 PG/ML Total Protein 7.4 6.4-8.2 GM/DL Albumin 4.5 3.2-4.5 GM/DL Lipase 35 8-78 U/L My Orders Orders - NURYS PARKS MD Cbc With Automated Diff (03/31/21 09:28) Magnesium (03/31/21 09:28) Ekg Tracing (03/31/21 09:28) Comprehensive Metabolic Panel (9/19/21 09:28) Protime With Inr (03/31/21 09:28) Partial Thromboplastin Time (03/31/21 09:28) O2 (03/31/21:) Monitor-Rhythm Ecg Trace Only (03/31/21 09:28) Ed Iv/Invasive Line Start (03/31/21 09:28) Lipase (03/31/21 09:28) Troponin I Fs (03/31/21 09:28) Probnp Fs (03/31/21:28) Ns Iv 1000 Ml (Sodium Chloride 0.9%) (03/31/21 09:28) Ondansetron Injection (Zofran Injectio (03/31/21:28) Pantoprazole Injection (Protonix Injecti (03/31/21:) Ketorolac Injection (Toradol Injection) (03/31/21 09:28) Ct Anita Chest/Noang Abd-Pelv W (03/31/21 09:28) Iohexol Injection (Omnipaque 350 Mg/Ml 1 (03/31/21 10:00) Received Contrast (Hold Metformin- Contr (03/31/21 10:00) Sodium Chloride Flush (Catheter Flush Sy (03/31/21 10:00) Ns (Ivpb) (Sodium Chloride 0.9% Ivpb Bag (03/31/21 10:00) Medications Given in ED Current Medications Medications Dose Ordered Sig/Nishant Route Start Time Stop Time Status Last Admin Dose Admin Iohexol 125 ml ONCE ONCE IV 03/31/21 10:00 03/31/21 10:01 DC 03/31/21 10:14 100 ML Sodium Chloride 100 ml ONCE ONCE IV 03/31/21 10:00 03/31/21 10:01 DC 03/31/21 10:14 80 ML Vital Signs/I&O 03/31/21 03/31/21 09:16 12:03 Temp 37.2 Pulse 85 88 Resp 16 16 B/P (MAP) 114/79 (91) 114/79 Pulse Ox 96 97 O2 Delivery Room Air Room Air Capillary Refill : Progress Note #1: Progress Note Patient presenting with recurrent symptoms for the last 48 hours or more will repeat labs that were done yesterday morning and repeat evaluation of his heart with troponin and EKG. As he is complaining of became tachycardic with standing and moving will order a liter of fluid for possible hydration issues as well as a CT angiogram of his chest to ensure there is no pulmonary embolism pneumonia or pleural effusion or mass that was contributing to the symptoms. Add on abdomen pelvis CT since he was having some right upper quadrant pain with palpation and had nausea with vomiting. 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 Progress Note #2: Progress Note Labs all stable without acute significant normality. He continues to have negative cardiac enzymes. His lipase is negative. Electrocardiogram appears similar to prior tracings in the system. He has no acute ST elevation. His CT angiogram of the chest did not demonstrate any pulmonary embolism or thoracic aortic dissection. His lungs and heart did not show acute abnormality either. His abdomen and pelvis had no showing acute significant normality that would account for his symptoms. Advised patient and his father the results. Counseled on increasing the treatme nt for his GERD and reflux. Suggested having an EGD or further evaluation done for possible ulcers. At least consider having H. pylori testing done. Try to elevate the head of the bed when he is sleeping. ECG Initial ECG Impression Date: Mar 31, 2021 Initial ECG Impression Time: 09:15 Initial ECG Rate: 86 Initial ECG Rhythm: Normal Sinus Initial ECG Comparisson: Unchanged Comment Sinus rhythm with a heart rate of 86 bpm. ND interval [address] elevation. Q waves consistently present in leads II, III and aVF from for several years. QT interval 351 ms with a QTc interval 420 ms. Appears stable from prior tracings in the system. Diagnostic Imaging Diagonstic Imaging: CT Plain Films/CT/US/NM/MRI: chest, abdomen, pelvis Comments NAME: KAT TORREZ [facility] REC#: [id number] PT STATUS: REG ER : 1985 PHYSICIAN: NURYS PARKS MD ADMIT DATE: 03/31/21/ER FS Draft Date of Exam:03/31/21 CT ANITA CHEST/NOANG ABD-PELV W CLINICAL INDICATION: Patient with chest pain, with nausea and vomiting and shortness breath x3 days. EXAM: CT angiogram of the chest, abdomen, and pelvis performed with 100 cc Omnipaque 350 IV contrast. Coronal and oblique MIP images of the vasculature were created to better evaluate anatomy. Auto Exposure Controls were utilized during the CT exam to meet ALARA standards for radiation dose reduction. COMPARISON: Chest x-ray dated 03/31/2021. FINDINGS: CHEST: There is no evidence of pulmonary embolism. There is no thoracic aortic dissection or aneurysm. There are small parenchymal bands in the middle lobe likely related to atelectasis. There is minimal atelectasis in the lingular region. There is minimal atelectasis involving the posterior aspects of both lungs. Otherwise, lungs are clear. There is no pleural effusion pneumothorax. There is no mediastinal or axillary lymphadenopathy. Mediastinal structures and heart shows no significant abnormality. There are small spurs involving the thoracic spine. ABDOMEN AND PELVIS: The abdominal aorta, celiac artery, SMA, and bilateral renal arteries are patent. There is no abdominal aortic aneurysmal dilation or dissection. The distal abdominal aorta is not opacified, but is not aneurysmally dilated. There is a 19 mm cyst involving the left lobe of the liver. Otherwise, liver, spleen, pancreas, gallbladder, and adrenal glands are unremarkable. There is no intra-abdominal free air or free fluid. There is no lymphadenopathy. Both kidneys are unremarkable with no hydronephrosis or mass. There is high density within the appendix, which may represent an appendicolith or high-density ingested debris. There is no intestinal obstruction. Bladder is fluid filled with no gross abnormality. The extra-abdominal and extrapelvic soft tissue structures are unremarkable. IMPRESSION: 1: Mild bilateral lung atelectasis. Otherwise, unremarkable CT angiogram of the chest with no evidence of pulmonary embolism. There is no thoracic aortic aneurysm. 2: There is no evidence of acute abdominal or pelvic process. There is no aneurysmal dilation or dissection of the abdominal aorta as visualized. 3: There is a cyst involving the left lobe of the liver. Dictated on workstation # [id number] Dict: 03/31/21 1035 Trans: 03/31/21 1049 [id number] Interpreted by: YOSEPH MITCHELL MD Electronically signed by: Reviewed: Reviewed by Me Departure Impression Primary Impression: Non-cardiac chest pain Additional Impression: GERD with esophagitis Qualified Codes: K21.00 - Gastro-esophageal reflux disease with esophagitis, without bleeding Disposition: HOME, SELF-CARE Condition: Stable Departure-Patient Inst. Decision time for Depature: 11:53 Referrals: GUGNANI,CHANTE K MD (PCP/Family) Primary Care Physician Patient Instructions: Acid Reflux, Adult and Adolescent ED, Chest Pain, Adult ED, Ulcer and Gastritis Diet Add. Discharge Instructions: Take the Protonix as a Proton Pump Inhibitor and Acid reducing medicine to help with treating acid irritation of the stomach and esophagus as well as healing the lining of the stomach in case you have an ulcer. Call the clinic at [phone] to get an appointment for follow up and if you are still having symptoms they may need to do additional testing to check for ulcers or H. Pylori bacteria in your stomach or see if there are other reasons for you to be having these symptoms. All discharge instructions reviewed with patient and/or family. Voiced understanding. Work/School Note: Work Release Form Date Seen in the Emergency Department: Mar 31, 2021 Return to Work: Apr 01, 2021 Restrictions: No Restrictions NURYS PARKS MD Mar 31, 2021 09:33
[2021-03-31] MEDS ORDERED: HOLD METFORMIN - RECEIVED CONTRAST 20 ML VIAL IV SCH (10:00)
[2021-03-31] MEDS ORDERED: NS 100 ML (IVPB) BAG IV ONE (10:00)
[2021-03-31] MEDS ORDERED: CATHETER FLUSH 10 ML SYR IV PRN (10:00)
[2021-03-31] MEDS ORDERED: IOHEXOL 350 MG/ML 150 ML (OMNIPAQUE 350) VIAL IV ONE (10:00)
[2021-03-31 10:07] LABS: HEMOGLOBIN 14.4 g/dL (13.3-17.7); MEAN CORPUSCULAR HEMOGLOBIN 30 pg (25-34); WHITE BLOOD COUNT 6.3 10^3/uL (4.3-11.0)
[2021-03-31 10:08] LABS: BASOPHILS % (AUTO) 1 % (0-10); EOSINOPHILS # (AUTO) 0.1 10^3/uL (0.0-0.3); EOSINOPHILS % (AUTO) 2 % (0-10); HEMATOCRIT 43 % (40-54); LYMPHOCYTES # (AUTO) 1.5 X 10^3 (1.0-4.0); LYMPHOCYTES % (AUTO) 23 % (12-44); MEAN CORPUSCULAR HGB CONC 33 g/dL (32-36); MEAN CORPUSCULAR VOLUME 90 fL (80-99); MEAN PLATELET VOLUME 9.3 fL (9.0-12.2); MONOCYTES # (AUTO) 0.4 X 10^3 (0.0-1.0); MONOCYTES % (AUTO) 6 % (0-12); NEUTROPHILS # (AUTO) 4.3 X 10^3 (1.8-7.8); NEUTROPHILS % (AUTO) 68 % (42-75); PLATELET COUNT 304 10^3/uL (130-400)
[2021-03-31 10:23] LABS: INR 0.9 (0.8-1.4); PROTHROMBIN TIME PATIENT 12.7 SEC (12.2-14.7)
[2021-03-31 10:29] LABS: ALBUMIN 4.5 GM/DL (3.2-4.5); BILIRUBIN,TOTAL 0.4 MG/DL (0.1-1.0); CALCIUM 9.7 MG/DL (8.5-10.1); MAGNESIUM 2.1 MG/DL (1.6-2.4); POTASSIUM 4.1 MMOL/L (3.6-5.0); TOTAL PROTEIN 7.4 GM/DL (6.4-8.2)
--- NOTE | 2021-03-31 10:50 | Diagnostic Imaging Report ---
CLINICAL INDICATION: Patient with chest pain, with nausea and vomiting and shortness breath x3 days. EXAM: CT angiogram of the chest, abdomen, and pelvis performed with 100 cc Omnipaque 350 IV contrast. Coronal and oblique MIP images of the vasculature were created to better evaluate anatomy. Auto Exposure Controls were utilized during the CT exam to meet ALARA standards for radiation dose reduction. COMPARISON: Chest x-ray dated 03/31/2021. FINDINGS: CHEST: There is no evidence of pulmonary embolism. There is no thoracic aortic dissection or aneurysm. There are small parenchymal bands in the middle lobe likely related to atelectasis. There is minimal atelectasis in the lingular region. There is minimal atelectasis involving the posterior aspects of both lungs. Otherwise, lungs are clear. There is no pleural effusion pneumothorax. There is no mediastinal or axillary lymphadenopathy. Mediastinal structures and heart shows no significant abnormality. There are small spurs involving the thoracic spine. ABDOMEN AND PELVIS: The abdominal aorta, celiac artery, SMA, and bilateral renal arteries are patent. There is no abdominal aortic aneurysmal dilation or dissection. The distal abdominal aorta is not opacified, but is not aneurysmally dilated. There is a 19 mm cyst involving the left lobe of the liver. Otherwise, liver, spleen, pancreas, gallbladder, and adrenal glands are unremarkable. There is no intra-abdominal free air or free fluid. There is no lymphadenopathy. Both kidneys are unremarkable with no hydronephrosis or mass. There is high density within the appendix, which may represent an appendicolith or high-density ingested debris. There is no intestinal obstruction. Bladder is fluid filled with no gross abnormality. The extra-abdominal and extrapelvic soft tissue structures are unremarkable. IMPRESSION: 1: Mild bilateral lung atelectasis. Otherwise, unremarkable CT angiogram of the chest with no evidence of pulmonary embolism. There is no thoracic aortic aneurysm. 2: There is no evidence of acute abdominal or pelvic process. There is no aneurysmal dilation or dissection of the abdominal aorta as visualized. 3: There is a cyst involving the left lobe of the liver. Dictated by: Dictated on workstation # [id number]
[2021-03-31 12:03] VITALS: BP 114/79
== END 2021-03-31 12:05 | disposition home or self-care (01) ==
LOC: EDUNIT# 09:08 → ER FS 09:10
DX: R07.89 Other chest pain (principal); K21.00 Gastro-esophageal reflux disease with esophagitis, without bleeding
CPT/HCPCS: 36415; 71275; 74177; 80053; 83690; 83735; 83880; 84484; 85025; 85610; 85730; 93005; 93041

== ENCOUNTER 2021-06-26 14:08 | Emergency (ER) | payer OTHER ==
[~2021-06-26] VITALS: Ht 182.9 cm; Wt 103.7 kg
[2021-06-26] MEDS ORDERED: NS IV 1000 ML 1,000 ML IV STA ×2 (14:26→15:26)
--- NOTE | 2021-06-26 14:53 | Diagnostic Imaging Report ---
INDICATION: Chest pain COMPARISON: 03/30/2021 FINDINGS: Heart size and pulmonary vascularity are within normal limits, and the lungs are clear, bilaterally. IMPRESSION: Unremarkable chest. Dictated by: Dictated on workstation # [id number]
[2021-06-26 14:59] LABS: BASOPHILS % (AUTO) 0 % (0-10); EOSINOPHILS % (AUTO) 1 % (0-10); HEMATOCRIT 41 % (40-54); HEMOGLOBIN 14.2 g/dL (13.3-17.7); LYMPHOCYTES % (AUTO) 19 % (12-44); MEAN CORPUSCULAR HEMOGLOBIN 31 pg (25-34); MEAN CORPUSCULAR HGB CONC 34 g/dL (32-36); MEAN CORPUSCULAR VOLUME 89 fL (80-99); MEAN PLATELET VOLUME 9.3 fL (9.0-12.2); MONOCYTES % (AUTO) 11 % (0-12); PLATELET COUNT 234 10^3/uL (130-400); WHITE BLOOD COUNT 3.7 10^3/uL (4.3-11.0)
[2021-06-26 15:00] LABS: EOSINOPHILS # (AUTO) 0.1 10^3/uL (0.0-0.3); LYMPHOCYTES # (AUTO) 0.7 X 10^3 (1.0-4.0); MONOCYTES # (AUTO) 0.4 X 10^3 (0.0-1.0); NEUTROPHILS # (AUTO) 2.5 X 10^3 (1.8-7.8); NEUTROPHILS % (AUTO) 68 % (42-75)
[2021-06-26 15:04] LABS: INR 0.9 (0.8-1.4); PROTHROMBIN TIME PATIENT 12.8 SEC (12.2-14.7)
[2021-06-26 15:12] LABS: ALBUMIN 4.3 GM/DL (3.2-4.5); BILIRUBIN,TOTAL 0.3 MG/DL (0.1-1.0); CALCIUM 9.9 MG/DL (8.5-10.1); CREATININE SERUM 1.1 MG/DL (0.60-1.30); POTASSIUM 3.7 MMOL/L (3.6-5.0); TOTAL PROTEIN 7.4 GM/DL (6.4-8.2)
--- NOTE | 2021-06-26 15:24 | ED General ---
General Chief Complaint: Chest Pain Nursing Triage Note: Patient reports he tested positive for COVID-19 in April, states he tested positive for strep throat on Thursday and started antibiotics on Thursday. He reports he has had lower back pain, tachycardia, and felt lightheaded for several days. He states he has been checking his heart rate at home and it has been 110-120 at rest and 150 with activity. He states he began having constant chest pain today, states he took 600 mg of ibuprofen at 1200. Source of Information: Patient History of Present Illness Date Seen by Provider: Jun 26, 2021 Time Seen by Provider: 14:21 Initial Comments 36-year-old male presenting with complaints of fast heart rate, feeling lightheaded, left-sided chest pain, low back pain. He states he had Covid infection in April. On Thursday he was tested for strep throat and found to be positive. He has been on antibiotics since then. He also has a son at home that is positive for Covid now. He feels lightheaded when he stands up. He was seen by Dr. Mcnally earlier today and had labs and a chest x-ray done but since he was still feeling bad he came to the emergency department. I do not have access to any of those tests from earlier today. He has been running a fever at times. He states at home his heart rate had gone up to 150 when he was checking it with his watch. Timing/Duration: 4-5 Days Severity: Moderate Modifying Factors: worse with Movement Associated Systoms: Chest Pain; No Cough; Diaphoresis, Fever/Chills; No Headaches, No Loss of Appetite; Malaise, Nausea/Vomiting (Nausea but no vomiting); No Seizure, No Shortness of Air, No Syncope; Weakness Allergies and Home Medications Allergies Coded Allergies: tramadol (Verified Allergy, Unknown, 02/19/20) Patient Home Medication List Home Medication List Reviewed: Yes Ibuprofen (Ibuprofen) 800 Mg Tablet, 800 MG PO Q8H PRN for PAIN Prescribed by: BOOM RUIZ on 02/19/20 0230 Review of Systems Review of Systems Constitutional: chills, dizziness (Especially with standing), fever EENTM: throat pain Respiratory: short of breath Cardiovascular: chest pain (Left-sided chest pain) Gastrointestinal: nausea; No vomiting Genitourinary: no symptoms reported Musculoskeletal: back pain (Low back pain) Skin: No rash Psychiatric/Neurological: Anxiety; Denies Headache; Weakness (Generalized) Past Ibvdbvw-Latvsa-Ypswkg Hx Patient Social History Tobacco Use?: No Substance use?: No Alcohol Use?: No Pt feels they are or have been: No Seasonal Allergies Seasonal Allergies: No Past Medical History Surgeries: No Respiratory: No Cardiac: No Neurological: No Genitourinary: No Gastrointestinal: Yes Gastroesophageal Reflux Musculoskeletal: No Endocrine: No HEENT: No Cancer: No Psychosocial: No Integumentary: No Blood Disorders: No Physical Exam Vital Signs Vital Signs - First Documented 06/26/21 14:15 Temp 36.7 Pulse 112 Resp 18 B/P (MAP) 115/80 (92) Pulse Ox 96 O2 Delivery Room Air Capillary Refill : Less Than 3 Seconds Height, Weight, BMI Height: '" Weight: lbs. oz. kg; 30.00 BMI Method: General Appearance: No Apparent Distress, WD/WN HEENT: PERRL/EOMI; No Moist Mucous Membranes (Slightly dry mucous membranes) Neck: Full Range of Motion, Non Tender, Supple Respiratory: Chest Non Tender, Lungs Clear, Normal Breath Sounds Cardiovascular: Normal Peripheral Pulses, Tachycardia Gastrointestinal: Normal Bowel Sounds, No Pulsatile Mass, Non Tender, Soft Extremity: Normal Capillary Refill, Normal Inspection, No Pedal Edema Neurologic/Psychiatric: Alert, Oriented x3 Skin: Normal Color, Warm/Dry Focused Exam Lactate Level 06/26/21 14:45: Lactic Acid Level 0.81 Lactic Acid Level Laboratory Tests Test 06/26/21 14:45 Lactic Acid Level 0.81 MMOL/L (0.50-2.00) Progress/Results/Core Measures Suspected Sepsis SIRS Temperature: Pulse: 112 Respiratory Rate: 18 Laboratory Tests 06/26/21 14:45: White Blood Count 3.7L Blood Pressure 115 /80 Mean: 92 06/26/21 14:45: Lactic Acid Level 0.81 Laboratory Tests 06/26/21 14:45: Creatinine 1.10, INR Comment 0.9, Platelet Count 234, Total Bilirubin 0.3 Results/Orders Lab Results Laboratory Tests Test 06/26/21 14:45 06/26/21 15:42 Range/Units White Blood Count 3.7 L 4.3-11.0 10^3/uL Red Blood Count 4.63 4.30-5.52 10^6/uL Hemoglobin 14.2 13.3-17.7 g/dL Hematocrit 41 40-54 % Mean Corpuscular Volume 89 80-99 fL Mean Corpuscular Hemoglobin 31 25-34 pg Mean Corpuscular Hemoglobin Concent 34 32-36 g/dL Red Cell Distribution Width 12.4 10.0-14.5 % Platelet Count 234 130-400 10^3/uL Mean Platelet Volume 9.3 9.0-12.2 fL Immature Granulocyte % (Auto) 1 % Neutrophils (%) (Auto) 68 42-75 % Lymphocytes (%) (Auto) 19 12-44 % Monocytes (%) (Auto) 11 0-12 % Eosinophils (%) (Auto) 1 0-10 % Basophils (%) (Auto) 0 0-10 % Neutrophils # (Auto) 2.5 1.8-7.8 X 10^3 Lymphocytes # (Auto) 0.7 L 1.0-4.0 X 10^3 Monocytes # (Auto) 0.4 0.0-1.0 X 10^3 Eosinophils # (Auto) 0.1 0.0-0.3 10^3/uL Basophils # (Auto) 0.0 0.0-0.1 10^3/uL Immature Granulocyte # (Auto) 0.0 0.0-0.1 10^3/uL Prothrombin Time 12.8 12.2-14.7 SEC INR Comment 0.9 0.8-1.4 Activated Partial Thromboplast Time 32 24-35 SEC Sodium Level 138 135-145 MMOL/L Potassium Level 3.7 3.6-5.0 MMOL/L Chloride Level 101 98-107 MMOL/L Carbon Dioxide Level 26 21-32 MMOL/L Anion Gap 11 5-14 MMOL/L Blood Urea Nitrogen 12 7-18 MG/DL Creatinine 1.10 0.60-1.30 MG/DL Estimat Glomerular Filtration Rate 75 BUN/Creatinine Ratio 11 Glucose Level 115 H 70-105 MG/DL Lactic Acid Level 0.81 0.50-2.00 MMOL/L Calcium Level 9.9 8.5-10.1 MG/DL Corrected Calcium 9.7 8.5-10.1 MG/DL Magnesium Level 2.0 1.6-2.4 MG/DL Total Bilirubin 0.3 0.1-1.0 MG/DL Aspartate Amino Transf (AST/SGOT) 21 5-34 U/L Alanine Aminotransferase (ALT/SGPT) 22 0-55 U/L Alkaline Phosphatase 47 40-136 U/L Troponin I < 0.30 <0.30 NG/ML Pro-B-Type Natriuretic Peptide 11.4 <75.0 PG/ML Total Protein 7.4 6.4-8.2 GM/DL Albumin 4.3 3.2-4.5 GM/DL Lipase 39 8-78 U/L Urine Color YELLOW Urine Clarity CLEAR Urine pH 6.0 5-9 Urine Specific [place] 1.010 L 1.016-1.022 Urine Protein NEGATIVE NEGATIVE Urine Glucose (UA) NEGATIVE NEGATIVE Urine Ketones NEGATIVE NEGATIVE Urine Nitrite NEGATIVE NEGATIVE Urine Bilirubin NEGATIVE NEGATIVE Urine Urobilinogen 0.2 < = 1.0 MG/DL Urine Leukocyte Esterase NEGATIVE NEGATIVE Urine RBC (Auto) 1+ H NEGATIVE Urine RBC RARE /HPF Urine WBC RARE /HPF Urine Squamous Epithelial Cells NONE /HPF Urine Crystals NONE /LPF Urine Bacteria NEGATIVE /HPF Urine Casts NONE /LPF Urine Mucus NEGATIVE /LPF Urine Culture Indicated NO My Orders Orders - NURYS PARKS MD Cbc With Automated Diff (06/26/21 14:) Magnesium (06/26/21 14:) Chest 1 View Ap/Pa Only (06/26/21 14:) Ekg Tracing (06/26/21 14:) Comprehensive Metabolic Panel (06/26/21 14:) Protime With Inr (06/26/21 14:) Partial Thromboplastin Time (06/26/21 14:26) O2 (06/26/21 14:) Monitor-Rhythm Ecg Trace Only (06/26/21 14:) Ed Iv/Invasive Line Start (06/26/21 14:26) Lipase (06/26/21 14:26) Troponin I Fs (06/26/21 14:) Probnp Fs (06/26/21 14:26) Blood Culture (06/26/21 14:) Ua Culture If Indicated (06/26/21 14:) Lactic Acid Analyzer (06/26/21 14:) Ns Iv 1000 Ml (Sodium Chloride 0.9%) (06/26/21 14:26) Ns Iv 1000 Ml (Sodium Chloride 0.9%) (06/26/21 15:) Vital Signs/I&O 06/26/21 06/26/21 14:15 17:26 Temp 36.7 Pulse 112 86 Resp 18 18 B/P (MAP) 115/80 (92) 124/80 Pulse Ox 96 95 O2 Delivery Room Air Room Air Capillary Refill : Less Than 3 Seconds Blood Pressure Mean: 92 Progress Note #1: Progress Note Obtain labs as well as blood culture and lactic acid to evaluate for sepsis with his strep throat and now complaining of tachycardia and chest pain. A chest x- ray to look for pulmonary infiltrate. Give IV fluids for hydration. Progress Note #2: Progress Note Labs appear stable with no acute significant abnormality to account for his tachycardia. He has a normal lactic acid of 0.8. His creatinine was slightly elevated at 1.1. His chest x-ray did not show any acute infiltrate or effusion. After 1 L of fluids his heart rate was improved. A second liter was ordered to help with hydration as he was still over 100 for his heart rate. Progress Note #3: Progress Note After the second liter of saline infused his heart rate was under 100. He was more consistently around 90 for his heart rate. Patient states he was feeling better. Reassured that his cardiac enzymes were negative. His labs appeared stable. Encouraged to push fluids and rest. Counseled that although he was being treated for strep throat he could additionally have a viral illness on top of that which would increase the need for hydration. Counseled on follow-up and return precautions. ECG Initial ECG Impression Date: Jun 26, 2021 Initial ECG Impression Time: 14:21 Initial ECG Rate: 113 Initial ECG Rhythm: S.Tach Initial ECG Comparisson: Unchanged Comment Sinus tachycardia with a heart rate of 113 bpm. MO interval 153 ms. QT interval 323 ms with a QTc interval 443 ms. there is no acute ST elevation. There is baseline wander on the tracing. Overall appears similar to prior tracings in the system. Diagnostic Imaging Diagonstic Imaging: Xray Plain Films/CT/US/NM/MRI: chest Comments [facility] [place] NAME: KAT TORREZ [facility] REC#: [id number] PT STATUS: REG ER : 1985 PHYSICIAN: NURYS PARKS MD ADMIT DATE: 06/26/21/ER FS Draft Date of Exam:06/26/21 CHEST 1 VIEW AP/PA ONLY INDICATION: Chest pain COMPARISON: 03/30/2021 FINDINGS: Heart size and pulmonary vascularity are within normal limits, and the lungs are clear, bilaterally. IMPRESSION: Unremarkable chest. Dictated on workstation # [id number] Dict: 06/26/21 1451 Trans: 06/26/21 1453 CVB [id number] Interpreted by: JAIR LAO MD Electronically signed by: Reviewed: Reviewed by Me Departure Impression Primary Impression: Dehydration Additional Impressions: Sinus tachycardia Strep pharyngitis Non-cardiac chest pain Disposition: HOME, SELF-CARE Condition: Improved Departure-Patient Inst. Decision time for Depature: 16:59 Referrals: CHANTE MCNALLY MD (PCP/Family) Primary Care Physician Patient Instructions: Strep Throat ED, Dehydration, Adult ED, Chest Pain, Adult ED Add. Discharge Instructions: Continue to drink plenty of fluids and consider alternating electrolyte drinks l brielle Gatorade with Water. Try to get plenty of rest Follow up with clinic for continued concerns All discharge instructions reviewed with patient and/or family. Voiced understanding. Work/School Note: Work Release Form Date Seen in the Emergency Department: Jun 26, 2021 Return to Work: Jun 29, 2021 Restrictions: Return-No Fever (24hrs) NURYS PARKS MD Jun 26, 2021 15:24
[2021-06-26 15:49] LABS: BILIRUBIN,URINE NEGATIVE (NEGATIVE); CLARITY,URINE CLEAR; COLOR,URINE YELLOW; GLUCOSE, URINE (UA) NEGATIVE (NEGATIVE); KETONES,URINE NEGATIVE (NEGATIVE); LEUKOCYTE ESTERASE ,URINE NEGATIVE (NEGATIVE); NITRITE,URINE NEGATIVE (NEGATIVE); PROTEIN,URINE NEGATIVE (NEGATIVE)
[2021-06-26 15:54] LABS: BACTERIA,URINE NEGATIVE /HPF; RBC,URINE RARE /HPF; WBC,URINE RARE /HPF
[2021-06-26 17:26] VITALS: BP 124/80
== END 2021-06-26 17:28 | disposition home or self-care (01) ==
LOC: EDUNIT# 14:08 → ER FS 14:12
DX: R07.89 Other chest pain (principal); R00.0 Tachycardia, unspecified; J02.0 Streptococcal pharyngitis; E86.0 Dehydration; R79.89 Other specified abnormal findings of blood chemistry; Z86.16 Personal history of COVID-19
CPT/HCPCS: 36415; 71045; 80053; 81000; 83605; 83690; 83735; 83880; 84484; 85025; 85610; 85730; 87040; 93005; 93041

== ENCOUNTER 2021-06-29 12:05 | Emergency (ER) | payer OTHER ==
--- NOTE | 2021-06-29 12:34 | ED Cough/URI ---
General Chief Complaint: COVID19 Suspect/Confirmed Stated Complaint: FEVER,CHILLS,DIARRHEA Source: patient Exam Limitations: no limitations History of Present Illness Date Seen by Provider: Jun 29, 2021 Time Seen by Provider: 12:10 Initial Comments 36-year-old male with past medical history of hypertension coming in due to continued cough, fever, and now diarrhea. He was recently diagnosed with strep throat and has been taking amoxicillin as prescribed. Last fever was this morning. Diarrhea started last night which was nonbloody. Came in because he was concerned he could be dehydrated. Prior to coming in he did drink 2 full bottles of water. Denies any significant abdominal pain. His son does have COVID currently, and the patient had COVID reportedly in April. Allergies and Home Medications Allergies Coded Allergies: tramadol (Verified Allergy, Unknown, 02/19/20) Patient Home Medication List Home Medication List Reviewed: Yes Ibuprofen (Ibuprofen) 800 Mg Tablet, 800 MG PO Q8H PRN for PAIN Prescribed by: BOOM RUIZ on 02/19/20 0230 Review of Systems Review of Systems Constitutional: chills, fever EENTM: No blurred vision Respiratory: cough, short of breath Cardiovascular: No chest pain Gastrointestinal: No abdominal pain; diarrhea, nausea; No vomiting Genitourinary: no symptoms reported Musculoskeletal: no symptoms reported Skin: no symptoms reported Psychiatric/Neurological: No Symptoms Reported Hematologic/Lymphatic: No Symptoms Reported Immunological/Allergic: no symptoms reported All Other Systems Reviewed Negative Unless Noted: Yes Past Shyromx-Xzsren-Wulzvn Hx Patient Social History Tobacco Use?: Yes Tobacco type used: Cigarettes Smoking Status: Current Everyday Smoker Smokeless Tobacco Frequency: Never a User Use of E-Cig and/or Vaping dev: No Use of E-Cig and/or Vaping Bryan: Never a User Substance use?: No Alcohol Use?: No Pt feels they are or have been: No Seasonal Allergies Seasonal Allergies: No Past Medical History Surgeries: No Respiratory: No Cardiac: No Neurological: No Genitourinary: No Gastrointestinal: Yes Gastroesophageal Reflux Musculoskeletal: No Endocrine: No HEENT: No Cancer: No Psychosocial: No Integumentary: No Blood Disorders: No Physical Exam Vital Signs - First Documented 06/29/21 12:16 Temp 36.6 Pulse 101 Resp 17 B/P (MAP) 118/69 (85) O2 Delivery Room Air Capillary Refill : Height: '" Weight: lbs. oz. kg; 30.00 BMI Method: General Appearance: WD/WN, no apparent distress Eyes: Bilateral Eye Normal Inspection HEENT: PERRL/EOMI, normal ENT inspection, pharynx normal Neck: non-tender, full range of motion, supple, normal inspection Respiratory: chest non-tender, lungs clear, normal breath sounds, no respiratory distress, no accessory muscle use Cardiovascular: regular rate, rhythm, no edema, no murmur Gastrointestinal: normal bowel sounds, non tender, soft; No distended, No guarding, No rebound Extremities: normal range of motion, non-tender, normal inspection, no pedal edema, no calf tenderness, normal capillary refill Neurologic/Psychiatric: no motor/sensory deficits, alert, normal mood/affect Skin: normal color, warm/dry Lymphatic: no adenopathy Progress/Results/Core Measures Suspected Sepsis SIRS Temperature: Pulse: Respiratory Rate: Blood Pressure / Mean: Results/Orders Lab Results Laboratory Tests Test 06/29/21 12:42 06/29/21 12:50 Range/Units Urine Color YELLOW Urine Clarity CLEAR Urine pH 6.0 5-9 Urine Specific [place] 1.020 1.016-1.022 Urine Protein NEGATIVE NEGATIVE Urine Glucose (UA) NEGATIVE NEGATIVE Urine Ketones NEGATIVE NEGATIVE Urine Nitrite NEGATIVE NEGATIVE Urine Bilirubin NEGATIVE NEGATIVE Urine Urobilinogen 0.2 < = 1.0 MG/DL Urine Leukocyte Esterase NEGATIVE NEGATIVE Urine RBC (Auto) 1+ H NEGATIVE Urine RBC 5-10 H /HPF Urine WBC NONE /HPF Urine Crystals NONE /LPF Urine Bacteria TRACE /HPF Urine Casts NONE /LPF Urine Mucus LARGE H /LPF Urine Culture Indicated NO My Orders Orders - MARVA JACKSON MD Covid 19 Inhouse Test (06/29/21 12:34) Chest 1 View Ap/Pa Only (06/29/21 12:34) Ua Culture If Indicated (06/29/21 12:34) Influenza A & B Antigens (06/29/21 13:13) Vital Signs/I&O 06/29/21 06/29/21 12:16 12:16 Temp 36.6 Pulse 101 Resp 17 B/P (MAP) 118/69 (85) O2 Delivery Room Air Room Air Capillary Refill : Progress Note : Progress Note 36-year-old male with above history coming in due to new episodes of diarrhea and fever. ABCs were intact and vitals were stable on presentation. Clinically he appears well-hydrated with moist mucous membranes, and also he is tolerating p.o. without difficulty. His abdomen is soft and nontender. Low suspicion for significant intra-abdominal pathology. Given the fever and the recent other infectious symptoms, he likely has something of a viral etiology. Flu and COVID testing sent. Chest x-ray ordered. Urinalysis ordered because his most recent did have blood in it just to see if that is cleared. Chest x-ray ordered and interpreted by me showing no obvious pneumonia, and appears similar to his prior 3 days ago. COVID and flu testing pending. Urinalysis without infection but does continue to have blood. He will just need to follow-up with his PCP regarding this as an outpatient. He was then discharged home in stable condition with strict return precautions. Departure Impression Primary Impression: Diarrhea Qualified Codes: R19.7 - Diarrhea, unspecified Additional Impression: Fever Qualified Codes: R50.9 - Fever, unspecified Disposition: 01 HOME, SELF-CARE Condition: Stable Departure-Patient Inst. Decision time for Depature: 13:15 Referrals: CHANTE MCNALLY MD (PCP/Family) Primary Care Physician Patient Instructions: Diarrhea, Adult ED, VIRAL RESP ILLNESS-CHILD Add. Discharge Instructions: Please continue to drink plenty of fluids, as long as you were keeping up with the amount that is coming out and diarrhea, you will not be dehydrated. Take Tylenol 1000 mg every 6 hours as needed for fever or pain. If you continue to have fever you can take ibuprofen 600 mg every 6 hours as well. You do still have some blood in your urine which can happen when you are sick, but you do need to follow-up with your primary care doctor to be sure this clears because sometimes other things can cause it. Work/School Note: Work Release Form Date Seen in the Emergency Department: Jun 29, 2021 Return to Work: Jul 01, 2021 Restrictions: Return-No Fever (24hrs) MARVA JACKSON MD Jun 29, 2021 12:34
[2021-06-29 13:02] LABS: BACTERIA,URINE TRACE /HPF; BILIRUBIN,URINE NEGATIVE (NEGATIVE); CLARITY,URINE CLEAR; COLOR,URINE YELLOW; GLUCOSE, URINE (UA) NEGATIVE (NEGATIVE); KETONES,URINE NEGATIVE (NEGATIVE); LEUKOCYTE ESTERASE ,URINE NEGATIVE (NEGATIVE); NITRITE,URINE NEGATIVE (NEGATIVE); PROTEIN,URINE NEGATIVE (NEGATIVE)
--- NOTE | 2021-06-29 13:17 | Diagnostic Imaging Report ---
Indication: Cough and dyspnea with fever. Comparison: 06/26/2021. Discussion: Single portable upright view of the chest was obtained. Normal heart size. No consolidation, pleural fluid, or pneumothorax. No osseous abnormality. Impression: 1. Negative chest. Dictated by: Dictated on workstation # [id number]
[2021-06-29 13:38] VITALS: BP 144/72
== END 2021-06-29 13:38 | disposition home or self-care (01) ==
LOC: EDUNIT# 12:05 → ER FS 12:07
DX: U07.1 COVID-19 (principal); F17.210 Nicotine dependence, cigarettes, uncomplicated
CPT/HCPCS: 71045; 81000; 87636; 87804

== ENCOUNTER 2021-10-07 16:58 | Emergency (ER) | payer OTHER ==
[~2021-10-07] VITALS: Ht 182.8 cm; Wt 105.8 kg
[2021-10-07] MEDS ORDERED: FAMOTIDINE 20 MG (PEPCID) TABLET PO STA (17:10)
[2021-10-07] MEDS ORDERED: LIDOCAINE 2% VISCOUS 15 ML UDC PO ONE (17:15)
[2021-10-07] MEDS ORDERED: ACETAMINOPHEN 500 MG TAB (TYLENOL) PO ONE (17:15)
[2021-10-07] MEDS ORDERED: ANTACID SUSP 30 ML UDC (MYLANTA) PO ONE (17:15)
--- NOTE | 2021-10-07 17:15 | ED Cardiac General ---
History of Present Illness General Stated Complaint: HIGH HEART RATE,DIZZY,SOA Source: patient Exam Limitations: no limitations History of Present Illness Date Seen by Provider: Oct 07, 2021 Time Seen by Provider: 17:01 Initial Comments 36-year-old male with past medical history of hypertension coming in due to chest discomfort and feeling like his heart is racing. Started at 1 AM this morning when he woke up and felt this way shortly after. Has been constant. Feels similar to previous episodes for which she has come to the ER. He has had numerous work-ups including stress testing, echo, multiple cardiac enzyme levels, all negative for any concerning findings. He had a CTA of his chest looking for pulmonary embolism or dissection which has been negative. He says this just happens intermittently. He denies any fever, cough, abdominal pain, nausea, vomiting, diarrhea, weakness, numbness, rash, or any other concerns. Allergies and Home Medications Allergies Coded Allergies: tramadol (Verified Allergy, Unknown, 02/19/20) Patient Home Medication List Home Medication List Reviewed: Yes Ibuprofen (Ibuprofen) 800 Mg Tablet, 800 MG PO Q8H PRN for PAIN Prescribed by: BOOM RUIZ on 02/19/20 0230 Review of Systems Review of Systems Constitutional: No chills, No fever EENTM: No Blurred Vision Respiratory: Denies Cough, Denies Shortness of Air Cardiovascular: Chest Pain Gastrointestinal: Denies Abdominal Pain Genitourinary: No Symptoms Reported Musculoskeletal: no symptoms reported Skin: no symptoms reported Psychiatric/Neurological: Anxiety Endocrine: No Symptoms Reported Hematologic/Lymphatic: No Symptoms Reported All Other Systems Reviewed Negative Unless Noted: Yes Past Dnlqegi-Vwuybn-Ycfejq Hx Patient Social History Tobacco Use?: No Seasonal Allergies Seasonal Allergies: No Past Medical History Surgeries: No Respiratory: No Cardiac: No Neurological: No Genitourinary: No Gastrointestinal: Yes Gastroesophageal Reflux Musculoskeletal: No Endocrine: No HEENT: No Cancer: No Psychosocial: No Integumentary: No Blood Disorders: No Physical Exam Vital Signs Capillary Refill : Height, Weight, BMI Height: '" Weight: lbs. oz. kg; 30.00 BMI Method: General Appearance: No Apparent Distress, WD/WN HEENT: PERRL/EOMI, Normal ENT Inspection, Pharynx Normal Neck: Full Range of Motion, Normal Inspection, Non Tender, Supple Respiratory: Chest Non Tender, Lungs Clear, Normal Breath Sounds, No Accessory Muscle Use, No Respiratory Distress Cardiovascular: Regular Rate, Rhythm, No Edema, Normal Peripheral Pulses Gastrointestinal: Normal Bowel Sounds, Non Tender, Soft Extremity: Normal Capillary Refill, Normal Inspection, Normal Range of Motion, Non Tender, No Calf Tenderness, No Pedal Edema Neurologic/Psychiatric: Alert, No Motor/Sensory Deficits, Normal Mood/Affect Skin: Normal Color, Warm/Dry Lymphatic: No Adenopathy Progress/Results/Core Measures Results/Orders My Orders Orders - MARVA JACKSON MD Cbc With Automated Diff (10/07/21 17:10) Magnesium (10/07/21 17:10) Chest 1 View Ap/Pa Only (10/07/21 17:10) Ekg Tracing (10/07/21 17:10) Comprehensive Metabolic Panel (10/07/21 17:10) O2 (10/07/21 17:10) Monitor-Rhythm Ecg Trace Only (10/07/21 17:10) Troponin I Fs (10/07/21 17:10) Lidocaine 2% Viscous 15 Ml (Xylocaine Vi (10/07/21 17:15) Famotidine Tablet (Pepcid Tablet) (10/07/21 17:10) Antacid Suspension (Mylanta Suspension (10/07/21 17:15) Acetaminophen Tablet (Tylenol Tablet) (10/07/21 17:15) Medications Given in ED Current Medications Medications Dose Ordered Sig/Nishant Route Start Time Stop Time Status Last Admin Dose Admin Acetaminophen 1,000 mg ONCE ONCE PO 10/07/21 17:15 10/07/21 17:16 DC 10/07/21 17:18 1,000 MG Al Hydrox/Mg Hydrox/Simethicone 30 ml ONCE ONCE PO 10/07/21 17:15 10/07/21 17:16 DC 10/07/21 17:18 30 ML Lidocaine HCl 15 ml ONCE ONCE PO 10/07/21 17:15 10/07/21 17:16 DC 10/07/21 17:18 15 ML Progress Progress Note : Progress Note 36-year-old male with above history coming in due to chest discomfort and feel like his heart is racing. ABCs were intact and vitals were stable on presentation. Heart rate around 100 on presentation with down to the 90s when he is resting. I reviewed the chart and multiple previous ER visits and his heart rate is typically around 110-100. I reviewed his previous stress test, echo, holter monitor, CTA chest, and ER visits with negative work-ups all within the past couple years for essentially the same issue. EKG today with no acute changes and appears exactly the same as his prior EKGs essentially over the past year. An IV was placed and basic labs were obtained including cardiac biomarkers which were negative. Chest x-ray negative for acute abnormalities. His HEART score is 1 for his HTN and given the constant discomfort for 14 hours, 1 negative troponin is sufficient to rule out ACS. He has had the exact same symptoms previously and had a negative CTA for PE. He is satting 100% on room air and heart rate is in the 90s. He is otherwise low risk for PE and I do not believe he needs further work-up for this at this time. 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 I believe he is stable for discharge with outpatient follow-up. He was sent home with strict return precautions. Initial ECG Impression Date: Oct 07, 2021 Initial ECG Impression Time: 17:21 Initial ECG Rate: 94 Initial ECG Rhythm: Normal Sinus Comment Narrow QRS, normal axis, no significant ST changes, there is S1Q3T3, but on review of prior EKGs this is been presents on at least 4 ED visits for over a year Departure Impression Primary Impression: Chest pain Qualified Codes: R07.9 - Chest pain, unspecified Additional Impression: Palpitations Disposition: 01 HOME, SELF-CARE Condition: Stable Departure-Patient Inst. Decision time for Depature: 18:10 Referrals: CHANTE MCNALLY MD (PCP/Family) Primary Care Physician Patient Instructions: Chest Pain That Is Not Caused by the Heart (DC) Add. Discharge Instructions: You were seen in the emergency department because your heart was racing and you are having some chest discomfort. Fortunately your work-up was normal with no signs of a heart attack or anything more serious. I recommend following back up with Dr. Persaud to see if there is anything else that can be done. I would also recommend following up with your regular doctor, sometimes things in the esophagus in your stomach can cause similar pain. You may need a scope in the future to rule out any other causes. Work/School Note: Work Release Form Date Seen in the Emergency Department: Oct 07, 2021 Return to Work: Oct 08, 2021 Restrictions: No Restrictions KRUMSICK,MARVA K MD Oct 07, 2021 17:15
--- NOTE | 2021-10-07 17:27 | Diagnostic Imaging Report ---
EXAMINATION: Chest, one view. HISTORY: Chest pain. COMPARISON: 06/29/2021. FINDINGS: The lung volumes are normal. No focal consolidation is seen. No large pleural effusion or pneumothorax is seen. The cardiomediastinal silhouette is normal in size and contour. No acute osseous abnormality is seen. IMPRESSION: 1. No acute pleural-parenchymal process. Dictated by: Dictated on workstation # [id number]
[2021-10-07] MEDS ORDERED: Prilosec (17:44)
[2021-10-07] MEDS ORDERED: METO-333 PO (17:44)
[2021-10-07 17:49] LABS: BASOPHILS # (AUTO) 0.1 10^3/uL (0.0-0.1); BASOPHILS % (AUTO) 1 % (0-10); EOSINOPHILS # (AUTO) 0.2 10^3/uL (0.0-0.3); EOSINOPHILS % (AUTO) 2 % (0-10); HEMATOCRIT 44 % (40-54); HEMOGLOBIN 15.2 g/dL (13.3-17.7); LYMPHOCYTES % (AUTO) 25 % (12-44); MEAN CORPUSCULAR HEMOGLOBIN 31 pg (25-34); MEAN CORPUSCULAR HGB CONC 35 g/dL (32-36); MEAN CORPUSCULAR VOLUME 89 fL (80-99); MEAN PLATELET VOLUME 9.3 fL (9.0-12.2); MONOCYTES # (AUTO) 0.7 10^3/uL (0.0-1.0); MONOCYTES % (AUTO) 9 % (0-12); NEUTROPHILS % (AUTO) 62 % (42-75); PLATELET COUNT 294 10^3/uL (130-400)
[2021-10-07 18:11] LABS: CALCIUM 9.7 MG/DL (8.5-10.1); CREATININE SERUM 1.03 MG/DL (0.60-1.30); POTASSIUM 3.9 MMOL/L (3.6-5.0)
[2021-10-07 18:12] LABS: ALBUMIN 4.5 GM/DL (3.2-4.5); BILIRUBIN,TOTAL 0.2 MG/DL (0.1-1.0); TOTAL PROTEIN 7.5 GM/DL (6.4-8.2)
[2021-10-07 18:30] VITALS: BP 114/75
== END 2021-10-07 18:30 | disposition home or self-care (01) ==
LOC: EDUNIT# 16:58 → ER FS 16:59
DX: R07.89 Other chest pain (principal); R00.2 Palpitations; Z86.79 Personal history of other diseases of the circulatory system; Z87.19 Personal history of other diseases of the digestive system
CPT/HCPCS: 36415; 71045; 80053; 83735; 84484; 85025; 93005; 93041

== ENCOUNTER → 2021-10-24 | Outpatient (CLI) | payer OTHER ==
[~2021-10-24] MED LIST changes: +METO-333 PO; +Prilosec
--- NOTE | 2021-10-24 12:36 | Diagnostic Imaging Report ---
Indication: Nausea, vomiting and diarrhea abdominal pain. Time of Exam: 10:23 AM The bowel gas pattern is nonobstructed. No pathologic calcifications are seen. There are numerous calcifications in the pelvis which may represent phleboliths. No free air is identified. IMPRESSION: No acute abnormality is detected. Dictated by: Dictated on workstation # [id number]
== END ==
LOC: RAD FS 10:10
PROVIDERS: ATTEND Nurse Practitioner Family
DX: K21.9 Gastro-esophageal reflux disease without esophagitis (principal); R19.7 Diarrhea, unspecified
CPT/HCPCS: 74019

== ENCOUNTER 2022-06-15 08:06 | Emergency (ER) | payer OTHER ==
[~2022-06-15] VITALS: Ht 182 cm; Wt 100.0 kg
[2022-06-15] MEDS ORDERED: NS IV 1000 ML 1,000 ML IV STA (08:14)
--- NOTE | 2022-06-15 08:14 | ED Dyspnea ---
General Stated Complaint: CHEST PAIN; SOB History of Present Illness Date Seen by Provider: Jun 15, 2022 Time Seen by Provider: 08:11 Initial Comments 37-year-old male presents with right-sided chest pain and shortness of breath. Patient reports that he has pain with deep breath. That it woke him up around 3 AM this morning. He went to urgent care tested negative for influenza they sent him here for further evaluation. He does report that he had COVID approximately month ago. Patient denies any nausea, vomiting, cough, fever or chills. Allergies and Home Medications Allergies Coded Allergies: tramadol (Verified Allergy, Unknown, 02/19/20) Patient Home Medication List Home Medication List Reviewed: Yes Azithromycin (Azithromycin) 250 Mg Tablet, 250 MG PO UD Prescribed by: SABI VEGA on 06/15/22 0931 Ibuprofen (Ibuprofen) 800 Mg Tablet, 800 MG PO Q8H PRN for PAIN Prescribed by: BOOM RUIZ on 02/19/20 0230 Metoprolol Tartrate (Metoprolol Tartrate) 25 Mg Tablet, 12.5 MG PO BID, (Reported) Entered as Reported by: OTONIEL GUERRA on 10/07/211743 [[facility]] , (Reported) Entered as Reported by: OTONIEL GUERRA on 10/07/211743 Review of Systems Review of Systems Constitutional: malaise, weakness EENTM: no symptoms reported Respiratory: no symptoms reported Cardiovascular: no symptoms reported Gastrointestinal: No abdominal pain; nausea, vomiting Genitourinary: no symptoms reported Musculoskeletal: no symptoms reported Skin: no symptoms reported Past Rpoyjcp-Nqwcuv-Qeisog Hx Immunizations Up To Date First/Initial COVID19 Vaccinat: not vaccinated Second COVID19 Vaccination Sadiq: not vaccinated Seasonal Allergies Seasonal Allergies: No Past Medical History Surgery/Hospitalization HX: HTN, GERD Surgeries: No Respiratory: No Cardiac: No Neurological: No Genitourinary: No Gastrointestinal: Yes Gastroesophageal Reflux Musculoskeletal: No Endocrine: No HEENT: No Cancer: No Psychosocial: No Integumentary: No Blood Disorders: No Physical Exam Vital Signs Vital Signs - First Documented 06/15/22 06/15/22 08:32 09:40 Temp 36.4 Pulse 118 Resp 16 B/P (MAP) 132/91 (105) Pulse Ox 98 O2 Delivery Room Air Capillary Refill : Height, Weight, BMI Height: '" Weight: lbs. oz. kg; 31.00 BMI Method: General Appearance: No Apparent Distress, WD/WN Neck: Non Tender, Supple Respiratory: Lungs Clear, Normal Breath Sounds Cardiovascular: Regular Rate, Rhythm, No Edema Gastrointestinal: Non Tender, Soft Extremity: Normal Capillary Refill, Normal Inspection, Normal Range of Motion Neurologic/Psychiatric: Alert, Oriented x3 Skin: Normal Color, Warm/Dry Progress/Results/Core Measures Results/Orders Lab Results Laboratory Tests Test 06/15/22 08:18 Range/Units White Blood Count 14.6 H 4.3-11.0 10^3/uL Red Blood Count 5.17 4.30-5.52 10^6/uL Hemoglobin 15.8 13.3-17.7 g/dL Hematocrit 46 40-54 % Mean Corpuscular Volume 89 80-99 fL Mean Corpuscular Hemoglobin 31 25-34 pg Mean Corpuscular Hemoglobin Concent 34 32-36 g/dL Red Cell Distribution Width 12.5 10.0-14.5 % Platelet Count 285 130-400 10^3/uL Mean Platelet Volume 9.2 9.0-12.2 fL Immature Granulocyte % (Auto) 1 % Neutrophils (%) (Auto) 85 H 42-75 % Lymphocytes (%) (Auto) 8 L 12-44 % Monocytes (%) (Auto) 6 0-12 % Eosinophils (%) (Auto) 0 0-10 % Basophils (%) (Auto) 0 0-10 % Neutrophils # (Auto) 12.4 H 1.8-7.8 10^3/uL Lymphocytes # (Auto) 1.2 1.0-4.0 10^3/uL Monocytes # (Auto) 0.9 0.0-1.0 10^3/uL Eosinophils # (Auto) 0.0 0.0-0.3 10^3/uL Basophils # (Auto) 0.1 0.0-0.1 10^3/uL Immature Granulocyte # (Auto) 0.1 0.0-0.1 10^3/uL Neutrophils % (Manual) 86 % Lymphocytes % (Manual) 10 % Monocytes % (Manual) 4 % D-Dimer 0.26 0.00-0.49 UG/ML Sodium Level 137 135-145 MMOL/L Potassium Level 4.3 3.6-5.0 MMOL/L Chloride Level 104 98-107 MMOL/L Carbon Dioxide Level 25 21-32 MMOL/L Anion Gap 8 5-14 MMOL/L Blood Urea Nitrogen 13 7-18 MG/DL Creatinine 0.94 0.60-1.30 MG/DL Estimat Glomerular Filtration Rate 106 BUN/Creatinine Ratio 14 Glucose Level 112 H 70-105 MG/DL Calcium Level 9.6 8.5-10.1 MG/DL Corrected Calcium 8.5-10.1 MG/DL Total Bilirubin 0.5 0.1-1.0 MG/DL Aspartate Amino Transf (AST/SGOT) 15 5-34 U/L Alanine Aminotransferase (ALT/SGPT) 20 0-55 U/L Alkaline Phosphatase 59 40-136 U/L Troponin I < 0.30 <0.30 NG/ML C-Reactive Protein 0.39 <0.50 MG/DL Total Protein 7.9 6.4-8.2 GM/DL Albumin 4.8 H 3.2-4.5 GM/DL My Orders Orders - VEGA,SABI L DO Cbc With Automated Diff (06/15/22 08:14) Comprehensive Metabolic Panel (06/15/22 08:14) Fibrin Degradation Products (06/15/22 08:14) Crp Fs (06/15/22 08:14) Troponin I Fs (06/15/22 08:14) Chest Pa/Lat (2 View) (06/15/22 08:14) Ns Iv 1000 Ml (Sodium Chloride 0.9%) (06/15/22 08:14) Ekg Tracing (06/15/22 08:14) Monitor-Rhythm Ecg Trace Only (06/15/22 08:14) Manual Differential (06/15/22 08:18) Vital Signs/I&O 06/15/22 06/15/22 08:32 09:40 Temp 36.4 Pulse 118 118 Resp 16 16 B/P (MAP) 132/91 (105) 130/80 Pulse Ox 98 98 O2 Delivery Room Air Room Air Progress Progress Note : Progress Note Patient's pain is reproducible with movement. I suspect he is got more of a pleuritis/musculoskeletal based pain. Patient does have an elevated white count is approximately 4 weeks post-COVID. I will treat him with azithromycin since it gets worse with inspiration he may be developing an early pneumonia. Patient stable and discharged Initial ECG Impression Date: Jun 15, 2022 Initial ECG Impression Time: 08:23 Initial ECG Rate: 104 Initial ECG Rhythm: Normal Sinus Initial ECG Intervals: Normal Comment no acute changes Departure Impression Primary Impression: Bronchitis Disposition: 01 HOME, SELF-CARE Condition: Stable Departure-Patient Inst. Referrals: [facility] (PCP/Family) Primary Care Physician Patient Instructions: Acute Bronchitis Add. Discharge Instructions: 800 mg ibuprofen 3 times daily or Aleve twice daily Drink plenty of fluid Scripts Azithromycin (Azithromycin) 250 Mg Tablet 250 MG PO UD, #6 TAB TAKE 2 TABLETS ON DAY ONE THEN TAKE 1 TABLET DAILY FOR FOUR MORE DAYS Prov: SABI VEGA DO 06/15/22 Work/School Note: Work Release Form Date Seen in the Emergency Department: Jun 15, 2022 Return to Work: Jun 17, 2022 Restrictions: Return-No Fever (24hrs) SABI VEGA DO Jun 15, 2022 08:14
[2022-06-15 08:21] LABS: BASOPHILS # (AUTO) 0.1 10^3/uL (0.0-0.1); BASOPHILS % (AUTO) 0 % (0-10); EOSINOPHILS % (AUTO) 0 % (0-10); HEMATOCRIT 46 % (40-54); HEMOGLOBIN 15.8 g/dL (13.3-17.7); LYMPHOCYTES # (AUTO) 1.2 10^3/uL (1.0-4.0); LYMPHOCYTES % (AUTO) 8 % (12-44); MEAN CORPUSCULAR HEMOGLOBIN 31 pg (25-34); MEAN CORPUSCULAR HGB CONC 34 g/dL (32-36); MEAN CORPUSCULAR VOLUME 89 fL (80-99); MEAN PLATELET VOLUME 9.2 fL (9.0-12.2); MONOCYTES # (AUTO) 0.9 10^3/uL (0.0-1.0); MONOCYTES % (AUTO) 6 % (0-12); NEUTROPHILS # (AUTO) 12.4 10^3/uL (1.8-7.8); NEUTROPHILS % (AUTO) 85 % (42-75); PLATELET COUNT 285 10^3/uL (130-400); WHITE BLOOD COUNT 14.6 10^3/uL (4.3-11.0)
[2022-06-15 08:43] LABS: ALANINE AMINOTRANSFERASE 20 U/L (0-55); ALBUMIN 4.8 GM/DL (3.2-4.5); ALKALINE PHOSPHATASE 59 U/L (40-136); BILIRUBIN,TOTAL 0.5 MG/DL (0.1-1.0); BUN/CREATININE RATIO 14; CALCIUM 9.6 MG/DL (8.5-10.1); CARBON DIOXIDE 25 MMOL/L (21-32); CHLORIDE 104 MMOL/L (98-107); CREATININE SERUM 0.94 MG/DL (0.60-1.30); GFR ESTIMATED 106; GLUCOSE 112 MG/DL (70-105); POTASSIUM 4.3 MMOL/L (3.6-5.0); SODIUM 137 MMOL/L (135-145); TOTAL PROTEIN 7.9 GM/DL (6.4-8.2)
--- NOTE | 2022-06-15 08:51 | Diagnostic Imaging Report ---
EXAMINATION: Chest 2 view HISTORY: Chest pain and shortness of breath COMPARISON: 10/07/2021 FINDINGS: The lungs are clear without edema or pneumonia. No pleural effusion or pneumothorax. Heart size is normal. IMPRESSION: 1. Clear lungs. Dictated by: Dictated on workstation # [id number]
[2022-06-15] MEDS ORDERED: AZIT250T12 PO (09:31)
[2022-06-15 09:36] LABS: LYMPHOCYTES % (MANUAL) 10 %; MONOCYTES % (MANUAL) 4 %; NEUTROPHILS % (MANUAL) 86 %
[2022-06-15 09:40] VITALS: BP 130/80
== END 2022-06-15 09:42 | disposition home or self-care (01) ==
LOC: EDUNIT# 08:06 → ER FS 08:08
DX: J40 Bronchitis, not specified as acute or chronic (principal); Z86.16 Personal history of COVID-19; Z28.310 Unvaccinated for COVID-19
CPT/HCPCS: 36415; 71046; 80053; 84484; 85007; 85027; 85379; 86141; 93005; 93041

== ENCOUNTER 2022-09-24 12:57 | Emergency (ER) | payer OTHER ==
[~2022-09-24] VITALS: Ht 182 cm; Wt 104.0 kg
[~2022-09-24 12:57] MED LIST changes: +AZIT250T12 PO
[2022-09-24] MEDS ORDERED: FAMOTIDINE 20 MG (PEPCID) TABLET PO STA (13:08)
--- NOTE | 2022-09-24 13:14 | ED Cardiac General ---
History of Present Illness General Chief Complaint: Chest Pain Stated Complaint: ABN EKG; CHEST PAIN Source: patient, RN/MD, old records Exam Limitations: no limitations History of Present Illness Date Seen by Provider: Sep 24, 2022 Time Seen by Provider: 12:58 Initial Comments 37-year-old male with past medical history of hypertension coming in as a referral from walk-in clinic due to chest pain. Started last night, center of his chest radiating up to his upper chest. Worse with a deep breath. Feels similar to prior episodes of chest pain. Denies any cough, hemoptysis, fever, chills, nausea, vomiting, diaphoresis, weakness, numbness, abdominal pain, diarrhea, recent surgery, history of DVT or PE, lower extremity swelling or pain, recent long travel, hormone use, or any other concerns. Allergies and Home Medications Allergies Coded Allergies: tramadol (Verified Allergy, Unknown, 02/19/20) Patient Home Medication List Home Medication List Reviewed: Yes Azithromycin (Azithromycin) 250 Mg Tablet, 250 MG PO UD Prescribed by: SABI VEGA on 06/15/22 0931 Ibuprofen (Ibuprofen) 800 Mg Tablet, 800 MG PO Q8H PRN for PAIN Prescribed by: BOOM RUIZ on 02/19/20 0230 Metoprolol Tartrate (Metoprolol Tartrate) 25 Mg Tablet, 12.5 MG PO BID, (Reported) Entered as Reported by: OTONIEL GUERRA on 10/07/211743 [[facility]] , (Reported) Entered as Reported by: OTONIEL GUERRA on 10/07/211743 Review of Systems Review of Systems Constitutional: No fever EENTM: No Symptoms Reported Respiratory: No Symptoms Reported Cardiovascular: See HPI Gastrointestinal: No Symptoms Reported Genitourinary: No Symptoms Reported Musculoskeletal: no symptoms reported Skin: no symptoms reported Psychiatric/Neurological: No Symptoms Reported Endocrine: No Symptoms Reported Hematologic/Lymphatic: No Symptoms Reported Past Uewsebi-Buackm-Hmvzit Hx Patient Social History Tobacco Use?: No Immunizations Up To Date First/Initial COVID19 Vaccinat: not vaccinated Second COVID19 Vaccination Sadiq: not vaccinated Seasonal Allergies Seasonal Allergies: No Past Medical History Surgery/Hospitalization HX: HTN, GERD Surgeries: No Respiratory: No Cardiac: No Neurological: No Genitourinary: No Gastrointestinal: Yes Gastroesophageal Reflux Musculoskeletal: No Endocrine: No HEENT: No Cancer: No Psychosocial: No Integumentary: No Blood Disorders: No Physical Exam Vital Signs Vital Signs - First Documented 09/24/22 13:03 Temp 36.6 Pulse 91 Resp 16 B/P (MAP) 132/92 (105) Pulse Ox 94 O2 Delivery Room Air Capillary Refill : Height, Weight, BMI Height: '" Weight: lbs. oz. kg; 30.00 BMI Method: General Appearance: WD/WN, Anxious HEENT: PERRL/EOMI, Normal ENT Inspection, Pharynx Normal Neck: Full Range of Motion, Normal Inspection, Non Tender, Supple Respiratory: Chest Non Tender, Lungs Clear, Normal Breath Sounds, No Accessory Muscle Use, No Respiratory Distress Cardiovascular: Regular Rate, Rhythm, No Edema, Normal Peripheral Pulses Gastrointestinal: Normal Bowel Sounds, Non Tender, Soft; No Distended, No Guarding Extremity: Normal Capillary Refill, Normal Inspection, Normal Range of Motion, Non Tender, No Calf Tenderness, No Pedal Edema Neurologic/Psychiatric: Alert, No Motor/Sensory Deficits, Normal Mood/Affect Skin: Normal Color, Warm/Dry Progress/Results/Core Measures Results/Orders Lab Results Laboratory Tests Test 09/24/22 13:05 Range/Units White Blood Count 10.5 4.3-11.0 10^3/uL Red Blood Count 5.04 4.30-5.52 10^6/uL Hemoglobin 15.2 13.3-17.7 g/dL Hematocrit 45 40-54 % Mean Corpuscular Volume 90 80-99 fL Mean Corpuscular Hemoglobin 30 25-34 pg Mean Corpuscular Hemoglobin Concent 34 32-36 g/dL Red Cell Distribution Width 12.2 10.0-14.5 % Platelet Count 301 130-400 10^3/uL Mean Platelet Volume 9.2 9.0-12.2 fL Immature Granulocyte % (Auto) 0 % Neutrophils (%) (Auto) 75 42-75 % Lymphocytes (%) (Auto) 15 12-44 % Monocytes (%) (Auto) 8 0-12 % Eosinophils (%) (Auto) 1 0-10 % Basophils (%) (Auto) 1 0-10 % Neutrophils # (Auto) 7.9 H 1.8-7.8 10^3/uL Lymphocytes # (Auto) 1.6 1.0-4.0 10^3/uL Monocytes # (Auto) 0.8 0.0-1.0 10^3/uL Eosinophils # (Auto) 0.1 0.0-0.3 10^3/uL Basophils # (Auto) 0.1 0.0-0.1 10^3/uL Immature Granulocyte # (Auto) 0.0 0.0-0.1 10^3/uL Prothrombin Time 12.4 12.2-14.7 SEC INR Comment 0.9 0.8-1.4 Activated Partial Thromboplast Time 33 24-35 SEC Sodium Level 139 135-145 MMOL/L Potassium Level 4.1 3.6-5.0 MMOL/L Chloride Level 100 98-107 MMOL/L Carbon Dioxide Level 27 21-32 MMOL/L Anion Gap 12 5-14 MMOL/L Blood Urea Nitrogen 12 7-18 MG/DL Creatinine 0.98 0.60-1.30 MG/DL Estimat Glomerular Filtration Rate 101 BUN/Creatinine Ratio 12 Glucose Level 97 70-105 MG/DL Calcium Level 10.4 H 8.5-10.1 MG/DL Corrected Calcium 8.5-10.1 MG/DL Magnesium Level 1.9 1.6-2.4 MG/DL Total Bilirubin 0.7 0.1-1.0 MG/DL Aspartate Amino Transf (AST/SGOT) 24 5-34 U/L Alanine Aminotransferase (ALT/SGPT) 25 0-55 U/L Alkaline Phosphatase 61 40-136 U/L Troponin I < 0.30 <0.30 NG/ML Total Protein 7.9 6.4-8.2 GM/DL Albumin 4.8 H 3.2-4.5 GM/DL Lipase 34 8-78 U/L My Orders Orders - MARVA JACKSON MD Cbc With Automated Diff (09/24/22 13:08) Magnesium (09/24/22 13:08) Chest 1 View Ap/Pa Only (09/24/22 13:08) Ekg Tracing (09/24/22 13:08) Comprehensive Metabolic Panel (09/24/22 13:08) Protime With Inr (09/24/22 13:08) Partial Thromboplastin Time (09/24/22 13:08) O2 (09/24/22 13:08) Monitor-Rhythm Ecg Trace Only (09/24/22 13:08) Aspirin Chewable Tablet (Baby Aspirin Ch (09/24/22 13:15) Ed Iv/Invasive Line Start (09/24/22 13:08) Lipase (09/24/22 13:08) Troponin I Fs (09/24/22 13:08) Lidocaine 2% Viscous 15 Ml (Xylocaine Vi (09/24/22 13:15) Famotidine Tablet (Pepcid Tablet) (09/24/22 13:08) Antacid Suspension (Mylanta Suspension (09/24/22 13:15) Ed Iv/Invasive Line Start (09/24/22 13:08) Medications Given in ED Current Medications Medications Dose Ordered Sig/Nishant Route Start Time Stop Time Status Last Admin Dose Admin Al Hydrox/Mg Hydrox/Simethicone 30 ml ONCE ONCE PO 09/24/22 13:15 09/24/22 13:16 DC 09/24/22 13:23 30 ML Aspirin 324 mg ONCE ONCE PO 09/24/22 13:15 09/24/22 13:16 DC 09/24/22 13:22 324 MG Lidocaine HCl 15 ml ONCE ONCE PO 09/24/22 13:15 09/24/22 13:16 DC 09/24/22 13:23 15 ML Vital Signs/I&O 09/24/22 13:03 Temp 36.6 Pulse 91 Resp 16 B/P (MAP) 132/92 (105) Pulse Ox 94 O2 Delivery Room Air Progress Progress Note : Progress Note 37-year-old male with above history coming in due to chest pain. ABCs were intact and vitals were stable on presentation. Physical exam reassuring with no acute abnormalities. Specifically he has no clinical signs of a DVT, normal distal pulses, normal neuro exam. [id number] ultrasound performed by me showing no pericardial effusion and normal ejection fraction. CXR ordered and interpreted by me showing normal cardiac silhouette, no opacities, and no obvious pneumothorax. An IV was placed and basic labs obtained including cardiac biomarkers. Troponin was negative and given his pain has been constant for more than 12 hours, highly unlikely that this is ACS. Also has very few risk factors for this. He is low risk for a PE per [place] criteria and is PERC negative. PE is very unlikely at this time. Given a GI cocktail and ASA. Patient well appearing. I believe he is stable for discharge with outpatient follow up. He wa s sent home with strict return precautions. Initial ECG Impression Date: Sep 24, 2022 Initial ECG Impression Time: 13:11 Initial ECG Rate: 95 Initial ECG Rhythm: Normal Sinus Comment Narrow QRS, normal axis, no significant ST changes or T wave abnormalities Diagnostic Imaging Diagonstic Imaging: Xray (chest) Comments [facility], [place] NAME: KAT TORREZ [facility] REC#: [id number] PT STATUS: REG ER : 1985 PHYSICIAN: MARVA JACKSON MD ADMIT DATE: 09/24/22/ER FS Draft Date of Exam:09/24/22 CHEST 1 VIEW AP/PA ONLY INDICATION: chest pain. TECHNIQUE: Single view chest 1:15 PM. CORRELATION STUDY: 06/15/2022 FINDINGS: Heart size enlarged. Vasculature within normal limits. The lungs are clear with no consolidating infiltrate. There is no significant effusion or pneumothorax. IMPRESSION: 1. Stable cardiac enlargement without failure. Dictated on workstation # [id number] Dict: 09/24/22 1329 Trans: 09/24/22 1329 DO [id number] Interpreted by: GOLDIE KLEIN DO Electronically signed by: Departure Impression Primary Impression: Chest pain Qualified Codes: R07.1 - Chest pain on breathing Disposition: 01 HOME, SELF-CARE Condition: Stable Departure-Patient Inst. Decision time for Depature: 13:42 Referrals: [facility] (PCP/Family) Primary Care Physician Patient Instructions: Chest Pain Add. Discharge Instructions: We are not seeing any evidence of life threatening causes of chest pain on your exam and work up today. 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 If pain worsens, changes, or you have any concerns then please see a doctor sooner. Work/School Note: Work Release Form Date Seen in the Emergency Department: Sep 24, 2022 Return to Work: Sep 25, 2022 Restrictions: No Restrictions MARVA JACKSON MD Sep 24, 2022 13:14
[2022-09-24] MEDS ORDERED: LIDOCAINE 2% VISCOUS 15 ML UDC PO ONE (13:15)
[2022-09-24] MEDS ORDERED: ASPIRIN 81 MG CHEW (CHILDREN'S ASA) PO ONE (13:15)
[2022-09-24] MEDS ORDERED: ANTACID SUSP 30 ML UDC (MYLANTA) PO ONE (13:15)
[2022-09-24 13:22] LABS: BASOPHILS # (AUTO) 0.1 10^3/uL (0.0-0.1); BASOPHILS % (AUTO) 1 % (0-10); EOSINOPHILS # (AUTO) 0.1 10^3/uL (0.0-0.3); EOSINOPHILS % (AUTO) 1 % (0-10); HEMATOCRIT 45 % (40-54); HEMOGLOBIN 15.2 g/dL (13.3-17.7); LYMPHOCYTES # (AUTO) 1.6 10^3/uL (1.0-4.0); LYMPHOCYTES % (AUTO) 15 % (12-44); MEAN CORPUSCULAR HEMOGLOBIN 30 pg (25-34); MEAN CORPUSCULAR HGB CONC 34 g/dL (32-36); MEAN CORPUSCULAR VOLUME 90 fL (80-99); MEAN PLATELET VOLUME 9.2 fL (9.0-12.2); MONOCYTES # (AUTO) 0.8 10^3/uL (0.0-1.0); MONOCYTES % (AUTO) 8 % (0-12); NEUTROPHILS # (AUTO) 7.9 10^3/uL (1.8-7.8); NEUTROPHILS % (AUTO) 75 % (42-75); PLATELET COUNT 301 10^3/uL (130-400); WHITE BLOOD COUNT 10.5 10^3/uL (4.3-11.0)
--- NOTE | 2022-09-24 13:30 | Diagnostic Imaging Report ---
INDICATION: chest pain. TECHNIQUE: Single view chest 1:15 PM. CORRELATION STUDY: 06/15/2022 FINDINGS: Heart size enlarged. Vasculature within normal limits. The lungs are clear with no consolidating infiltrate. There is no significant effusion or pneumothorax. IMPRESSION: 1. Stable cardiac enlargement without failure. Dictated by: Dictated on workstation # [id number]
[2022-09-24 13:31] LABS: INR 0.9 (0.8-1.4); PROTHROMBIN TIME PATIENT 12.4 SEC (12.2-14.7)
[2022-09-24 13:34] LABS: SODIUM 139 MMOL/L (135-145)
[2022-09-24 13:35] LABS: ALANINE AMINOTRANSFERASE 25 U/L (0-55); ALBUMIN 4.8 GM/DL (3.2-4.5); ALKALINE PHOSPHATASE 61 U/L (40-136); BILIRUBIN,TOTAL 0.7 MG/DL (0.1-1.0); BUN/CREATININE RATIO 12; CALCIUM 10.4 MG/DL (8.5-10.1); CARBON DIOXIDE 27 MMOL/L (21-32); CHLORIDE 100 MMOL/L (98-107); CREATININE SERUM 0.98 MG/DL (0.60-1.30); GFR ESTIMATED 101; GLUCOSE 97 MG/DL (70-105); LIPASE 34 U/L (8-78); MAGNESIUM 1.9 MG/DL (1.6-2.4); POTASSIUM 4.1 MMOL/L (3.6-5.0); TOTAL PROTEIN 7.9 GM/DL (6.4-8.2)
[2022-09-24 13:48] VITALS: BP 128/82
== END 2022-09-24 13:49 | disposition home or self-care (01) ==
LOC: EDUNIT# 12:57 → ER FS 12:59
DX: R07.9 Chest pain, unspecified (principal); Z28.310 Unvaccinated for COVID-19
CPT/HCPCS: 36415; 71045; 80053; 83690; 83735; 84484; 85025; 85610; 85730; 93005; 93041

== ENCOUNTER 2022-12-05 13:35 | Emergency (ER) | payer OTHER ==
[~2022-12-05] VITALS: Ht 180.3 cm; Wt 103.0 kg
[2022-12-05] MEDS ORDERED: KETOROLAC 15 MG/ML VIAL IVP ONE (14:00)
[2022-12-05] MEDS ORDERED: NS IV 1000 ML 1,000 ML IV STA (14:00)
[2022-12-05] MEDS ORDERED: ANTACID SUSP 30 ML UDC (MYLANTA) PO ONE (14:00)
[2022-12-05] MEDS ORDERED: PROMETHAZINE INJ 25 MG/ML (PHENERGAN) AMP IVP ONE (14:00)
[2022-12-05] MEDS ORDERED: FAMOTIDINE 20MG/2ML IV (PEPCID) IV STA (14:00)
--- NOTE | 2022-12-05 14:03 | ED GI ---
General Stated Complaint: EPIGASTRIC PAIN; VOMITING Source of Information: Patient Exam Limitations: No Limitations History of Present Illness Date Seen by Provider: December 05, 2022 Time Seen by Provider: 13:39 Initial Comments 29-year-old male with no pertinent past medical history coming in due to epigastric burning discomfort with nonbloody nonbilious vomiting. He believes he ate bad [employer] around 11 AM yesterday. At 7 PM, started feeling nauseous and started vomiting. He has been up all night vomiting he states. He had a loose bowel movement last night as well, no blood in it. Has not taken anything for the pain, has not really been able to keep anything down. Denies any previous history of abdominal surgeries. Otherwise denying any other acute complaints including no fever. Allergies and Home Medications Allergies Coded Allergies: tramadol (Verified Allergy, Unknown, 02/19/20) Patient Home Medication List Home Medication List Reviewed: Yes Azithromycin (Azithromycin) 250 Mg Tablet, 250 MG PO UD Prescribed by: SABI VEGA on 06/15/22 0931 Ibuprofen (Ibuprofen) 800 Mg Tablet, 800 MG PO Q8H PRN for PAIN Prescribed by: BOOM RUIZ on 02/19/20 0230 Metoprolol Tartrate (Metoprolol Tartrate) 25 Mg Tablet, 12.5 MG PO BID, (Reported) Entered as Reported by: OTONIEL GUERRA on 10/07/211743 Ondansetron (Ondansetron Odt) 4 Mg Tab.rapdis, 4 MG SL Q6H PRN for NAUSEA/VOMITING Prescribed by: MARVA JACKSON on 12/05/22 1510 Promethazine HCl (Promethazine Suppository) 25 Mg Supp.rect, 25 MG RC Q8H PRN for NAUSEA/VOMITING-2ND LINE Prescribed by: MRAVA JACKSON on 12/05/22 1510 [Prilosec] , (Reported) Entered as Reported by: OTONIEL GUERRA on 10/07/21 174 Review of Systems Review of Systems Constitutional: No fever EENTM: No Symptoms Reported Respiratory: No Symptoms Reported Cardiovascular: No Symptoms Reported Gastrointestinal: See HPI Genitourinary: No Symptoms Reported Musculoskeletal: no symptoms reported Skin: no symptoms reported Past Yfefnmd-Vprsjs-Qvmjli Hx Patient Social History Substance use?: No Immunizations Up To Date First/Initial COVID19 Vaccinat: not vaccinated Second COVID19 Vaccination Sadiq: not vaccinated Third COVID19 Vaccination Date: not vaccinated Seasonal Allergies Seasonal Allergies: No Past Medical History Surgery/Hospitalization HX: HTN, GERD Surgeries: No Respiratory: No Cardiac: No Neurological: No Genitourinary: No Gastrointestinal: Yes Gastroesophageal Reflux Musculoskeletal: No Endocrine: No HEENT: No Cancer: No Psychosocial: No Integumentary: No Blood Disorders: No Physical Exam Vital Signs Capillary Refill : Height/Weight/BMI Height: '" Weight: lbs. oz. kg; 31.00 BMI Method: General Appearance: WD/WN, no apparent distress HEENT: PERRL/EOMI, normal ENT inspection, pharynx normal Neck: non-tender, full range of motion, supple, normal inspection Respiratory: chest non-tender, lungs clear, normal breath sounds, no respiratory distress, no accessory muscle use Cardiovascular: regular rate, rhythm, no edema, no murmur Gastrointestinal: normal bowel sounds, soft; No distended, No guarding, No rebound; tenderness (Mild epigastric tenderness) Extremities: normal range of motion, non-tender, normal inspection, no pedal edema, no calf tenderness, normal capillary refill Back: normal inspection, no CVA tenderness Neurologic/Psychiatric: no motor/sensory deficits, alert, normal mood/affect Skin: normal color, warm/dry Progress/Results/Core Measures Results/Orders Lab Results Laboratory Tests Test 12/05/22 14:27 Range/Units White Blood Count 16.8 H 4.3-11.0 10^3/uL Red Blood Count 5.12 4.30-5.52 10^6/uL Hemoglobin 15.4 13.3-17.7 g/dL Hematocrit 45 40-54 % Mean Corpuscular Volume 88 80-99 fL Mean Corpuscular Hemoglobin 30 25-34 pg Mean Corpuscular Hemoglobin Concent 34 32-36 g/dL Red Cell Distribution Width 12.1 10.0-14.5 % Platelet Count 275 130-400 10^3/uL Mean Platelet Volume 9.3 9.0-12.2 fL Immature Granulocyte % (Auto) 1 % Neutrophils (%) (Auto) 88 H 42-75 % Lymphocytes (%) (Auto) 6 L 12-44 % Monocytes (%) (Auto) 5 0-12 % Eosinophils (%) (Auto) 0 0-10 % Basophils (%) (Auto) 0 0-10 % Neutrophils # (Auto) 14.8 H 1.8-7.8 10^3/uL Lymphocytes # (Auto) 0.9 L 1.0-4.0 10^3/uL Monocytes # (Auto) 0.9 0.0-1.0 10^3/uL Eosinophils # (Auto) 0.1 0.0-0.3 10^3/uL Basophils # (Auto) 0.0 0.0-0.1 10^3/uL Immature Granulocyte # (Auto) 0.1 0.0-0.1 10^3/uL Neutrophils % (Manual) 88 % Lymphocytes % (Manual) 4 % Monocytes % (Manual) 4 % Band Neutrophils 4 % Platelet Estimate NORMAL Blood Morphology Comment NORMAL Sodium Level 136 135-145 MMOL/L Potassium Level 3.7 3.6-5.0 MMOL/L Chloride Level 98 98-107 MMOL/L Carbon Dioxide Level 23 21-32 MMOL/L Anion Gap 15 H 5-14 MMOL/L Blood Urea Nitrogen 9 7-18 MG/DL Creatinine 0.91 0.60-1.30 MG/DL Estimat Glomerular Filtration Rate 111 BUN/Creatinine Ratio 10 Glucose Level 108 H 70-105 MG/DL Calcium Level 10.1 8.5-10.1 MG/DL Corrected Calcium 9.8 8.5-10.1 MG/DL Total Bilirubin 0.7 0.1-1.0 MG/DL Aspartate Amino Transf (AST/SGOT) 18 5-34 U/L Alanine Aminotransferase (ALT/SGPT) 22 0-55 U/L Alkaline Phosphatase 61 40-136 U/L Total Protein 7.7 6.4-8.2 GM/DL Albumin 4.4 3.2-4.5 GM/DL Lipase 25 8-78 U/L My Orders Orders - MARVA JACKSON MD Cbc With Automated Diff (12/05/22 14:00) Comprehensive Metabolic Panel (12/05/22 14:00) Lipase (12/05/22 14:00) Promethazine Injection (Phenergan Injec (12/05/22 14:00) Ns Iv 1000 Ml (Sodium Chloride 0.9%) (12/05/22 14:00) Ketorolac Injection (Toradol Injection) (12/05/22 14:00) Antacid Suspension (Mylanta Suspension (12/05/22 14:00) Famotidine Injection (Pepcid Injection) (12/05/22 14:00) Manual Differential (12/05/22 14:27) Medications Given in ED Current Medications Medications Dose Ordered Sig/Nishant Route Start Time Stop Time Status Last Admin Dose Admin Al Hydrox/Mg Hydrox/Simethicone 30 ml ONCE ONCE PO 12/05/22 14:00 12/05/22 14:02 DC 12/05/22 14:17 30 ML Ketorolac Tromethamine 15 mg ONCE ONCE IVP 12/05/22 14:00 12/05/22 14:02 DC 12/05/22 14:19 15 MG Promethazine HCl 25 mg ONCE ONCE IVP 12/05/22 14:00 12/05/22 14:02 DC 12/05/22 14:19 25 MG Progress Progress Note : Progress Note 37-year-old male with above history coming in due to epigastric burning and nausea and vomiting. ABCs were intact and vitals were stable on presentation. Physical exam with epigastric tenderness with no signs of peritonitis. An IV was placed and basic labs were obtained and were significant for a leukocytosis, normal creatinine, normal LFTs, normal lipase. He was given a bolus of IV fluids as well as nausea medicines and a GI cocktail. Pain has improved and he has not vomited here. He is now tolerating fluids. I did a qcmes-gt-dpuu ultrasound showing no pericholecystic fluid and no gallbladder wall thickening. Also repeat abdominal exam that continues to be reassuring with no right lower quadrant pain. Very low likelihood for appendicitis or other surgical concern, CT scan not ordered therefore. Likely this is gastritis versus food poisoning like he mentioned. I believe he stable for discharge with outpatient follow-up. He was sent home with strict return precautions Departure Impression Primary Impression: Gastritis Qualified Codes: K29.00 - Acute gastritis without bleeding Disposition: HOME, SELF-CARE Condition: Stable Departure-Patient Inst. Decision time for Depature: 15:15 Referrals: CHANTE MCNALLY MD (PCP) Primary Care Physician Patient Instructions: Gastritis Add. Discharge Instructions: Likely this is food poisoning versus some other GI infection. Typically this will take anywhere from 24 hours to several days to get better. It would not be unusual to have diarrhea with that as well. Follow-up with your regular doctor if you are not seeing improvement in the next week. Take omeprazole which you are already taking, Tylenol, and aatm-vsq-wjeovto Maalox for pain. Nausea medicines were sent to your pharmacy as well. Scripts Promethazine HCl (Promethazine Suppository) 25 Mg Supp.rect 25 MG RC Q8H PRN for NAUSEA/VOMITING-2ND LINE for 4 Days, #12 SUPP.RECT Prov: MARVA JACKSON MD 12/05/22 Ondansetron (Ondansetron Odt) 4 Mg Tab.rapdis 4 MG SL Q6H PRN for NAUSEA/VOMITING for 5 Days, #20 TAB Prov: MARVA JACKSON MD 12/05/22 MARVA JACKSON MD December 05, 2022 14:03
[2022-12-05 14:32] LABS: BASOPHILS % (AUTO) 0 % (0-10); EOSINOPHILS # (AUTO) 0.1 10^3/uL (0.0-0.3); EOSINOPHILS % (AUTO) 0 % (0-10); HEMATOCRIT 45 % (40-54); HEMOGLOBIN 15.4 g/dL (13.3-17.7); LYMPHOCYTES # (AUTO) 0.9 10^3/uL (1.0-4.0); LYMPHOCYTES % (AUTO) 6 % (12-44); MEAN CORPUSCULAR HEMOGLOBIN 30 pg (25-34); MEAN CORPUSCULAR HGB CONC 34 g/dL (32-36); MEAN CORPUSCULAR VOLUME 88 fL (80-99); MEAN PLATELET VOLUME 9.3 fL (9.0-12.2); MONOCYTES # (AUTO) 0.9 10^3/uL (0.0-1.0); MONOCYTES % (AUTO) 5 % (0-12); NEUTROPHILS # (AUTO) 14.8 10^3/uL (1.8-7.8); NEUTROPHILS % (AUTO) 88 % (42-75); PLATELET COUNT 275 10^3/uL (130-400); WHITE BLOOD COUNT 16.8 10^3/uL (4.3-11.0)
[2022-12-05 14:43] LABS: BAND NEUTROPHILS 4 %; LYMPHOCYTES % (MANUAL) 4 %; MONOCYTES % (MANUAL) 4 %; NEUTROPHILS % (MANUAL) 88 %; PLATELET ESTIMATE NORMAL; RBC MORPH NORMAL
[2022-12-05 14:56] LABS: BILIRUBIN,TOTAL 0.7 MG/DL (0.1-1.0); CALCIUM 10.1 MG/DL (8.5-10.1); CREATININE SERUM 0.91 MG/DL (0.60-1.30); POTASSIUM 3.7 MMOL/L (3.6-5.0)
[2022-12-05 14:57] LABS: ALBUMIN 4.4 GM/DL (3.2-4.5); TOTAL PROTEIN 7.7 GM/DL (6.4-8.2)
[2022-12-05] MEDS ORDERED: PROM25SU44 RC (15:10)
[2022-12-05] MEDS ORDERED: ONDA4TAB11 SL (15:10)
[2022-12-05 15:18] VITALS: BP 133/78
[2022-12-06] MEDS ORDERED: ACHYD1T PO (16:14)
[2022-12-06] MEDS ORDERED: AMOX-355 PO ×2 (16:14→19:37)
[2022-12-06] MEDS ORDERED: HYDR-3820 PO (19:37)
== END 2022-12-05 15:18 | disposition home or self-care (01) ==
LOC: EDUNIT# 13:35 → ER FS 13:36
DX: K29.70 Gastritis, unspecified, without bleeding (principal); Z28.310 Unvaccinated for COVID-19
CPT/HCPCS: 36415; 80053; 83690; 85007; 85027

== ENCOUNTER 2022-12-06 10:54 | Day surgery (SDC) | payer OTHER ==
[~2022-12-06] VITALS: Ht 182 cm; Wt 220.0 kg
[2022-12-06] VITALS (11 sets, daily range): BP systolic 109–145; BP diastolic 73–125
[~2022-12-06 10:54] MED LIST changes: +ONDA4TAB11 SL; +PROM25SU44 RC
[2022-12-06] MEDS ORDERED: ONDANSETRON 4 MG/2 ML (SDV) Z0FRAN IVP STA (11:17)
[2022-12-06] MEDS ORDERED: NS IV 1000 ML 1,000 ML IV STA ×2 (11:17→12:14)
[2022-12-06] MEDS ORDERED: fentaNYL INJ 100 MCG/2 ML AMP IVP STA ×2 (11:17→12:27)
[2022-12-06 11:25] LABS: BASOPHILS % (AUTO) 0 % (0-10); EOSINOPHILS # (AUTO) 4.1 10^3/uL (0.0-0.3); EOSINOPHILS % (AUTO) 23 % (0-10); HEMATOCRIT 45 % (40-54); HEMOGLOBIN 15.4 g/dL (13.3-17.7); LYMPHOCYTES # (AUTO) 0.5 10^3/uL (1.0-4.0); LYMPHOCYTES % (AUTO) 3 % (12-44); MEAN CORPUSCULAR HEMOGLOBIN 30 pg (25-34); MEAN CORPUSCULAR HGB CONC 34 g/dL (32-36); MEAN CORPUSCULAR VOLUME 89 fL (80-99); MEAN PLATELET VOLUME 9.1 fL (9.0-12.2); MONOCYTES % (AUTO) 5 % (0-12); NEUTROPHILS # (AUTO) 12.4 10^3/uL (1.8-7.8); NEUTROPHILS % (AUTO) 68 % (42-75); PLATELET COUNT 272 10^3/uL (130-400); WHITE BLOOD COUNT 18.2 10^3/uL (4.3-11.0)
[2022-12-06] MEDS ORDERED: NS 100 ML (IVPB) BAG IV ONE (11:30)
[2022-12-06] MEDS ORDERED: IOHEXOL 350 MG/ML 100 ML (OMNIPAQUE 350) VIAL IV ONE (11:30)
[2022-12-06] MEDS ORDERED: HOLD METFORMIN - RECEIVED CONTRAST 20 ML VIAL IV SCH (11:30)
--- NOTE | 2022-12-06 11:40 | ED Abdominal Pain ---
General Chief Complaint: Abdominal/GI Problems Stated Complaint: SEVERE ABD PAIN Source of Information: Patient History of Present Illness Date Seen by Provider: December 06, 2022 Time Seen by Provider: 10:57 Initial Comments 37-year-old male presenting with complaints of continued nausea, vomiting and abdominal pain that had localized now to the right lower quadrant. He was seen yesterday in the emergency department and did not have pain localizing to the right lower quadrant at that time. He had an elevated white blood cell count and a bedside ultrasound of his gallbladder that was reassuring. He had nausea medicines prescribed but patient states that he was feeling so bad that he did not go in to get the medicine and he did not realize that he could have a family member parts picker the prescriptions. He continued to have nausea and vomiting and felt like the pain had localized now to the right lower quadrant. He denies any further diarrhea. He reports having a temperature up to 102 Fahrenheit at home and took Tylenol around 10 AM. He denies having any solid food since when his pain started. He had a couple of sips of water today but has not eaten anything. He denies any prior surgery on his abdomen or pelvis. He states that he has an allergy to tramadol and that it had caused his heart to feel weird. He has not tolerated other pain medications. He has prescription for metoprolol but has not taken any since due to the nausea and vomiting. He follows with Dr. Persaud from cardiology. Timing/Duration: 2-3 Days Severity/Quality: Severe, Sharp Location: RLQ Radiation: Groin Activities at Onset: None Modifying Factors: Worsens With Movement, Worsens With Palpation Associated Symptoms: No Back Pain, No Chest Pain, No Diaphoresis, No Fever/Chills, No Fatigue, No Headache, No Heartburn; Nausea/Vomiting; No Rash, No Shortness of Air, No Syncope, No Weakness Allergies and Home Medications Allergies Coded Allergies: tramadol (Verified Allergy, Unknown, 02/19/20) Patient Home Medication List Home Medication List Reviewed: Yes Azithromycin (Azithromycin) 250 Mg Tablet, 250 MG PO UD Prescribed by: SABI VEGA on 06/15/22 0931 Ibuprofen (Ibuprofen) 800 Mg Tablet, 800 MG PO Q8H PRN for PAIN Prescribed by: BOOM RUIZ on 02/19/20 0230 Metoprolol Tartrate (Metoprolol Tartrate) 25 Mg Tablet, 12.5 MG PO BID, (Reported) Entered as Reported by: OTONIEL GUERRA on 10/07/211743 Ondansetron (Ondansetron Odt) 4 Mg Tab.rapdis, 4 MG SL Q6H PRN for NAUSEA/VOMITING Prescribed by: MARVA JACKSON on 12/05/22 1510 Promethazine HCl (Promethazine Suppository) 25 Mg Supp.rect, 25 MG RC Q8H PRN for NAUSEA/VOMITING-2ND LINE Prescribed by: MARVA JACKSON on 12/05/22 1510 [Prilosec] , (Reported) Entered as Reported by: OTONIEL GUERRA on 10/07/211743 Review of Systems Review of Systems Constitutional: chills, dizziness, fever, malaise, weakness EENTM: No Symptoms Reported Respiratory: No Symptoms Reported Cardiovascular: No Symptoms Reported Gastrointestinal: See HPI Genitourinary: Denies Pain Musculoskeletal: no symptoms reported Skin: No rash Psychiatric/Neurological: See HPI Past Zeiqrwm-Hxxrex-Lrjmug Hx Patient Social History Tobacco Use?: No Substance use?: No Immunizations Up To Date First/Initial COVID19 Vaccinat: not vaccinated Second COVID19 Vaccination Sadiq: not vaccinated Third COVID19 Vaccination Date: not vaccinated Seasonal Allergies Seasonal Allergies: No Past Medical History Surgery/Hospitalization HX: HTN, GERD, Acute appendicitis 12/06/2022 Surgeries: Yes Appendectomy (12/06/2022) Respiratory: No Cardiac: No Neurological: No Genitourinary: No Gastrointestinal: Yes Gastroesophageal Reflux Musculoskeletal: No Endocrine: No HEENT: No Cancer: No Psychosocial: No Integumentary: No Blood Disorders: No Physical Exam Vital Signs Vital Signs - First Documented 12/06/22 11:00 Temp 37.7 Pulse 139 Resp 16 B/P (MAP) 127/82 (97) Pulse Ox 95 O2 Delivery Room Air Capillary Refill : Height/Weight/BMI Height: '" Weight: lbs. oz. kg; 31.00 BMI Method: General Appearance: moderate distress HEENT: PERRL/EOMI; No pharynx normal (dry mucous membranes) Neck: non-tender, supple Respiratory: chest non-tender, lungs clear, normal breath sounds, no respiratory distress, no accessory muscle use Cardiovascular: normal peripheral pulses, tachycardia Gastrointestinal: soft, no pulsatile mass, abnormal bowel sounds (hypoactive); No distended; guarding, rebound (RLQ), tenderness (RLQ) Rectal: deferred Extremities: normal range of motion, non-tender, normal capillary refill Neurologic/Psychiatric: alert, oriented x 3 Skin: normal color, warm/dry Images 1 - Pain localizing to RLQ now at [facility]'s point Focused Exam Lactate Level 12/06/22 11:20: Lactic Acid Level 1.23 Lactic Acid Level Laboratory Tests Test 12/06/22 11:20 Lactic Acid Level 1.23 MMOL/L (0.50-2.00) Progress/Results/Core Measures Results/Orders Lab Results Laboratory Tests Test 12/06/22 11:20 Range/Units White Blood Count 18.2 H 4.3-11.0 10^3/uL Red Blood Count 5.10 4.30-5.52 10^6/uL Hemoglobin 15.4 13.3-17.7 g/dL Hematocrit 45 40-54 % Mean Corpuscular Volume 89 80-99 fL Mean Corpuscular Hemoglobin 30 25-34 pg Mean Corpuscular Hemoglobin Concent 34 32-36 g/dL Red Cell Distribution Width 12.4 10.0-14.5 % Platelet Count 272 130-400 10^3/uL Mean Platelet Volume 9.1 9.0-12.2 fL Immature Granulocyte % (Auto) 1 % Neutrophils (%) (Auto) 68 42-75 % Lymphocytes (%) (Auto) 3 L 12-44 % Monocytes (%) (Auto) 5 0-12 % Eosinophils (%) (Auto) 23 H 0-10 % Basophils (%) (Auto) 0 0-10 % Neutrophils # (Auto) 12.4 H 1.8-7.8 10^3/uL Lymphocytes # (Auto) 0.5 L 1.0-4.0 10^3/uL Monocytes # (Auto) 1.0 0.0-1.0 10^3/uL Eosinophils # (Auto) 4.1 H 0.0-0.3 10^3/uL Basophils # (Auto) 0.0 0.0-0.1 10^3/uL Immature Granulocyte # (Auto) 0.1 0.0-0.1 10^3/uL Sodium Level 134 L 135-145 MMOL/L Potassium Level 3.8 3.6-5.0 MMOL/L Chloride Level 98 98-107 MMOL/L Carbon Dioxide Level 22 21-32 MMOL/L Anion Gap 14 5-14 MMOL/L Blood Urea Nitrogen 10 7-18 MG/DL Creatinine 0.93 0.60-1.30 MG/DL Estimat Glomerular Filtration Rate 108 BUN/Creatinine Ratio 11 Glucose Level 113 H 70-105 MG/DL Lactic Acid Level 1.23 0.50-2.00 MMOL/L Calcium Level 9.6 8.5-10.1 MG/DL Corrected Calcium 9.4 8.5-10.1 MG/DL Total Bilirubin 1.4 H 0.1-1.0 MG/DL Aspartate Amino Transf (AST/SGOT) 14 5-34 U/L Alanine Aminotransferase (ALT/SGPT) 16 0-55 U/L Alkaline Phosphatase 60 40-136 U/L C-Reactive Protein 20.99 H <0.50 MG/DL Total Protein 7.6 6.4-8.2 GM/DL Albumin 4.3 3.2-4.5 GM/DL Lipase 29 8-78 U/L My Orders Orders - NURYS PARKS MD Comprehensive Metabolic Panel (12/06/22 11:15) Lipase (12/06/22 11:15) Ua Culture If Indicated (12/06/22 11:15) Ed Iv/Invasive Line Start (12/06/22 11:15) Cbc With Automated Diff (12/06/22 11:15) Ct Abdomen/Pelvis W (12/06/22 11:15) Crp Fs (12/06/22 11:15) Blood Culture (12/06/22 11:15) Lactic Acid Analyzer (12/06/22 11:15) Ns Iv 1000 Ml (Sodium Chloride 0.9%) (12/06/22 11:17) Ondansetron Injection (Zofran Injectio (12/06/22 11:17) Fentanyl Inj (Sublimaze Injection) (12/06/22 11:17) Monitor-Rhythm Ecg Trace Only (12/06/22 11:17) Ekg Tracing (12/06/22 11:17) Iohexol Injection (Omnipaque 350 Mg/Ml 1 (12/06/22 11:30) Received Contrast (Hold Metformin- Contr (12/06/22 11:30) Ns (Ivpb) (Sodium Chloride 0.9% Ivpb Bag (12/06/22 11:30) Ns Iv 1000 Ml (Sodium Chloride 0.9%) (12/06/22 12:14) Ed Admission (Communication) (12/06/22 12:15) Fentanyl Inj (Sublimaze Injection) (12/06/22 12:27) Medications Given in ED Current Medications Medications Dose Ordered Sig/Nishant Route Start Time Stop Time Status Last Admin Dose Admin Iohexol 100 ml ONCE ONCE IV 12/06/22 11:30 12/06/22 11:31 DC 12/06/22 11:39 80 ML Sodium Chloride 100 ml ONCE ONCE IV 12/06/22 11:30 12/06/22 11:31 DC 12/06/22 11:38 100 ML Vital Signs/I&O 12/06/22 11:00 Temp 37.7 Pulse 139 Resp 16 B/P (MAP) 127/82 (97) Pulse Ox 95 O2 Delivery Room Air Progress Progress Note #1: Progress Note Potential diagnosis of acute appendicitis, colitis, diverticulitis, kidney stone, pyelonephritis. 15 peripheral IV access and send labs for complete blood count, comprehensive metabolic profile, lipase, blood cultures, lactic acid, and urinalysis. Give normal saline 1 L IV fluid bolus for hydration, fentanyl 50 mcg IV for pain, Zofran 4 mg IV for nausea and vomiting. Progress Note #2: Time: 11:46 Progress Note On my personal interpretation and review of his CT scan of the abdomen and pelvis with IV contrast he appeared to have inflammation and stranding in the right lower quadrant with enlarged appendix but I did not appreciate any free air or signs of perforation or abscess. His white blood cell count continues to be high at 18.2 thousand with a left shift. He did not have acute significant electrolyte abnormalities. His renal function and hepatic function had looked okay. He had a negative lactic acid without elevation at 1.23 but did have elevated CRP of 20.99. I updated the patient and advised him a felt like he had acute appendicitis and was going to check with the surgeon on-call. I had not gotten the official report from the radiologist yet but it should be coming so on. Patient was anxious and concerned about possibly having surgery. He rates his pain down to a 4 out of 10 now with medication and treatment here in the ED. He has had no further nausea or vomiting here in the emergency department since getting medication. 1204 I reviewed the radiologist report that detailed findings for acute appendicitis measuring up to 1.9 cm. There was stranding and inflammation with a trace amount of fluid around the appendix but no definite abscess or perforation. I called Dr. Williamson the surgeon on-call and updated him about the findings on the patient as well as presentation with continued nausea and vomiting and pain that has now localized to the right lower quadrant. He has positive appendicitis on CT scan. He accepted the patient to do surgery today to get his appendix out and wanted him to come down to [place] [facility] soon as possible. He did not have any recommendations for antibiotics at this time but anticipates giving antibiotics at time of surgery. He likely will be able to be discharged later today. I ordered an additional liter of normal saline for additional hydration and to keep him n.p.o. I also ordered an additional dose of fentanyl 50 mcg IV to try and help with pain on the ambulance ride to [place]. Initial ECG Impression Date: December 06, 2022 Initial ECG Impression Time: 11:47 Initial ECG Rate: 113 Initial ECG Rhythm: S.Tach Initial ECG Comparisson: Unchanged (similar to tracing from 09/24/2022) Comment My personal interpretation and review his electrocardiogram shows sinus tachycardia with a heart rate of 113 bpm. NV interval [address] elevation. QT interval 304 ms with a QTc interval 371 ms. Overall appears similar to prior tracing from September 24, 2022. Diagnostic Imaging Diagonstic Imaging: CT Plain Films/CT/US/NM/MRI: abdomen, pelvis Comments [facility], [place] NAME: KAT TORREZ [facility] REC#: [id number] PT STATUS: REG ER : 1985 PHYSICIAN: NURYS PARKS MD ADMIT DATE: 12/06/22/ER FS Signed Date of Exam:12/06/22 CT ABDOMEN/PELVIS W EXAMINATION: CT abdomen and pelvis with intravenous contrast. TECHNIQUE: Multiple contiguous axial images were obtained through the abdomen and pelvis after the uneventful administration of intravenous contrast. All CT scans use one or more of the following dose optimizing techniques: automated exposure control, MA and/or KvP adjustment based on patient size and exam type or iterative reconstruction. HISTORY: n/v/d with RLQ abd pain and fever COMPARISON: None available. FINDINGS: Lung bases: There is atelectasis or scarring within the lung bases. Solid organs: The liver is normal without focal lesion. The gallbladder is normal. There is no biliary ductal dilation. Pancreas is normal. Spleen is normal. Adrenal glands are normal. The kidneys are normal without hydronephrosis. Bowel: The stomach and small bowel are normal without obstruction. The colon is normal. The appendix is dilated with a large stone at the origin. Appendix measures up to 1.9 cm in diameter. There is surrounding inflammatory stranding within the right lower quadrant. Peritoneum: Trace fluid along the right paracolic gutter and pelvis without loculated fluid collection or free air. No suspicious lymphadenopathy. Vasculature: Normal without aneurysm. Musculoskeletal: No suspicious osseous lesion or compression fracture. Pelvis: The prostate gland is normal. The urinary bladder is normal. IMPRESSION: 1. Findings of acute appendicitis without evidence of abscess or free air. Dictated by: Dictated on workstation # [id number] Dict: 12/06/22 1148 Trans: 12/06/22 1200 [facility] [id number] Interpreted by: ANTONELLA WHITFIELD DO Electronically signed by: ANTONELLA WHITFIELD DO 12/06/22 1200 Reviewed: Reviewed by Me Departure Communication (Admissions) Time/Spoke to Admitting Phy: 12:[address] Williamson, the on-call surgeon. Advised him of the patient's presentation and complaints of pain as well as high white blood cell count and findings on the CT scan showing inflamed and enlarged appendix measuring up to 1.9 cm. He did not have signs of perforation or abscess on the CT per the radiologist report. He did not have an elevated lactic acid but does have an elevated CRP level consistent with inflammation. His heart rate and pain was improved after getting IV fluids, Zofran, fentanyl. Rates his pain now at a [address] Williamson accepted the patient for appendicitis and plan to take him to the operating room today. Anticipate possible discharge this evening. Impression Primary Impression: Acute appendicitis with localized peritonitis Qualified Codes: K35.30 - Acute appendicitis with localized peritonitis, without perforation or gangrene Disposition: 30 STILL A PATIENT Condition: Stable Admissions Decision to Admit Reason: Admit from ER (General) Decision to Admit/Date: December 06, 2022 Time/Decision to Admit Time: 12:04 Departure-Patient Inst. Referrals: CHANTE MCNALLY MD (PCP/Family) Primary Care Physician NURYS PARKS MD December 06, 2022 11:40
[2022-12-06 11:44] LABS: POTASSIUM 3.8 MMOL/L (3.6-5.0)
[2022-12-06 11:45] LABS: ALBUMIN 4.3 GM/DL (3.2-4.5); BILIRUBIN,TOTAL 1.4 MG/DL (0.1-1.0); CALCIUM 9.6 MG/DL (8.5-10.1); CREATININE SERUM 0.93 MG/DL (0.60-1.30); TOTAL PROTEIN 7.6 GM/DL (6.4-8.2)
--- NOTE | 2022-12-06 11:53 | Diagnostic Imaging Report ---
EXAMINATION: CT abdomen and pelvis with intravenous contrast. TECHNIQUE: Multiple contiguous axial images were obtained through the abdomen and pelvis after the uneventful administration of intravenous contrast. All CT scans use one or more of the following dose optimizing techniques: automated exposure control, MA and/or KvP adjustment based on patient size and exam type or iterative reconstruction. HISTORY: n/v/d with RLQ abd pain and fever COMPARISON: None available. FINDINGS: Lung bases: There is atelectasis or scarring within the lung bases. Solid organs: The liver is normal without focal lesion. The gallbladder is normal. There is no biliary ductal dilation. Pancreas is normal. Spleen is normal. Adrenal glands are normal. The kidneys are normal without hydronephrosis. Bowel: The stomach and small bowel are normal without obstruction. The colon is normal. The appendix is dilated with a large stone at the origin. Appendix measures up to 1.9 cm in diameter. There is surrounding inflammatory stranding within the right lower quadrant. Peritoneum: Trace fluid along the right paracolic gutter and pelvis without loculated fluid collection or free air. No suspicious lymphadenopathy. Vasculature: Normal without aneurysm. Musculoskeletal: No suspicious osseous lesion or compression fracture. Pelvis: The prostate gland is normal. The urinary bladder is normal. IMPRESSION: 1. Findings of acute appendicitis without evidence of abscess or free air. Dictated by: Dictated on workstation # [id number]
[2022-12-06] MEDS ORDERED: ceFAZolin INJECTION 2,000 MG in NS (IVPB) 50 ML IV ONE (14:00)
--- NOTE | 2022-12-06 14:00 | Consultation - Surgery ---
History of Present Illness History of Present Illness Patient Consulted On(gautam/time) 12/06/22 13:55 Time Seen by Provider: 13:43 History of Present Illness Surgery asked to consult regarding Appendicitis. HPI per ED: 37-year-old male presenting with complaints of continued nausea, vomiting and abdominal pain that had localized now to the right lower quadrant. He was seen yesterday in the emergency department and did not have pain localizing to the right lower quadrant at that time. He had an elevated white blood cell count and a bedside ultrasound of his gallbladder that was reassuring. He had nausea medicines prescribed but patient states that he was feeling so bad that he did not go in to get the medicine and he did not realize that he could have a family member pick[employer] the prescriptions. He continued to have nausea and vomiting and felt like the pain had localized now to the right lower quadrant. He denies any further diarrhea. He reports having a temperature up to 102 Fahrenheit at home and took Tylenol around 10 AM. He denies having any solid food since when his pain started. He had a couple of sips of water today but has not eaten anything. He denies any prior surgery on his abdomen or pelvis. He states that he has an allergy to tramadol and that it had caused his heart to feel weird. He has not tolerated other pain medications. He has prescription for metoprolol but has not taken any since due to the nausea and vomiting. He follows with Dr. Persaud from cardiology. When I saw pt he was in his bed on the floor, appeared to be in mild distress secondary to pain. He states only the pain meds make it better. The ride down here hurt his abdomen. He has never had pain like this before. Allergies and Home Medications Allergies Coded Allergies: tramadol (Verified Allergy, Unknown, 02/19/20) Patient Home Medication List Home Medication List Reviewed: Yes Azithromycin (Azithromycin) 250 Mg Tablet, 250 MG PO UD Prescribed by: SABI VEGA on 06/15/22 0931 Ibuprofen (Ibuprofen) 800 Mg Tablet, 800 MG PO Q8H PRN for PAIN Prescribed by: BOOM RUIZ on 02/19/20 0230 Metoprolol Tartrate (Metoprolol Tartrate) 25 Mg Tablet, 12.5 MG PO BID, (Reported) Entered as Reported by: OTONIEL GUERRA on 10/07/21 2732 Ondansetron (Ondansetron Odt) 4 Mg Tab.rapdis, 4 MG SL Q6H PRN for NAUSEA/VOMITING Prescribed by: MARVA JACKSON on 12/05/22 1510 Promethazine HCl (Promethazine Suppository) 25 Mg Supp.rect, 25 MG RC Q8H PRN for NAUSEA/VOMITING-2ND LINE Prescribed by: MARVA JACKSON on 12/05/22 151 [Prilosec] , (Reported) Entered as Reported by: OTONIEL GUERRA on 10/07/211743 Past Iqetseo-Lmmtln-Dvfuxz Hx Patient Social History Smoking Status: Never a Smoker 2nd Hand Smoke Exposure: No Recent Hopitalizations: No Alcohol Use?: No Have you traveled recently?: No Seasonal Allergies Seasonal Allergies: No Surgeries History of Surgeries: No Respiratory History of Respiratory Disorde: No Cardiovascular History of Cardiac Disorders: Yes Cardiac Disorders: Hypertension, Irregular Heartbeat Neurological History of Neurological Disord: No Genitourinary History of Genitourinary Disor: No Gastrointestinal History of Gastrointestinal Di: Yes Gastrointestinal Disorders: Gastroesophageal Reflux Musculoskeletal History of Musculoskeletal Dis: No Endocrine History of Endocrine Disorders: No HEENT History of HEENT Disorders: No Cancer History of Cancer: No Psychosocial History of Psychiatric Problem: No Integumentary History of Skin or Integumenta: No Blood Transfusions History of Blood Disorders: No Family Medical History Significant Family History: Diabetes (grandparents) Review of Systems-General Constitutional: chills, diaphoresis, fever, malaise EENTM: No double vision, No mouth swelling, No epistaxis Respiratory: No cough, No dyspnea on exertion, No short of breath Cardiovascular: No chest pain, No palpitations Gastrointestinal: abdominal pain (RLQ); No jaundice; loss of appetite, nausea, vomiting Genitourinary: No dysuria, No frequency, No hematuria Musculoskeletal: No joint pain, No joint swelling, No muscle pain Skin: No change in color, No change in hair/nails Psychiatric/Neurological: Denies Anxiety, Denies Depressed, Denies Seizure Physical Exam-General Problems Physical Exam Vital Signs Vital Signs - First Documented 12/06/22 11:00 Temp 37.7 Pulse 139 Resp 16 B/P (MAP) 127/82 (97) Pulse Ox 95 O2 Delivery Room Air Capillary Refill : Less Than 3 Seconds General Appearance: WD/WN, mild distress Eyes: Bilateral Eye PERRL, Bilateral Eye EOMI HEENT: pharynx normal; No scleral icterus (R), No scleral icterus (L) Neck: non-tender, supple Respiratory: lungs clear, normal breath sounds, no respiratory distress, no accessory muscle use Cardiovascular: no murmur, tachycardia Gastrointestinal: soft, distended (mildly), guarding (voluntary), tenderness (RLQ), hernia (small umbilical) Back: no CVA tenderness Extremities: no pedal edema, no calf tenderness, normal capillary refill Neurologic/Psychiatric: senior planning analyst II-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 nml as tested, alert, normal mood/affect, oriented x 3 Skin: normal color, warm/dry Lymphatic: no adenopathy (neck, axilla or groin) Data Review Labs Laboratory Tests 12/06/22 11:20: White Blood Count 18.2H, Red Blood Count 5.10, Hemoglobin 15.4, Hematocrit 45, Mean Corpuscular Volume 89, Mean Corpuscular Hemoglobin 30, Mean Corpuscular H emoglobin Concent 34, Red Cell Distribution Width 12.4, Platelet Count 272, Mean Platelet Volume 9.1, Immature Granulocyte % (Auto) 1, Neutrophils (%) (Auto) 68, Lymphocytes (%) (Auto) 3L, Monocytes (%) (Auto) 5, Eosinophils (%) (Auto) 23H, Basophils (%) (Auto) 0, Neutrophils # (Auto) 12.4H, Lymphocytes # (Auto) 0.5L, Monocytes # (Auto) 1.0, Eosinophils # (Auto) 4.1H, Basophils # (Auto) 0.0, Immature Granulocyte # (Auto) 0.1, Sodium Level 134L, Potassium Level 3.8, Chloride Level 98, Carbon Dioxide Level 22, Anion Gap 14, Blood Urea Nitrogen 10, Creatinine 0.93, Estimat Glomerular Filtration Rate 108, BUN/Creatinine Ratio 11, Glucose Level 113H, Lactic Acid Level 1.23, Calcium Level 9.6, Corrected Calcium 9.4, Total Bilirubin 1.4H, Aspartate Amino Transf (AST/SGOT) 14, Alanine Aminotransferase (ALT/SGPT) 16, Alkaline Phosphatase 60, C-Reactive Protein 20.99H, Total Protein 7.6, Albumin 4.3, Lipase 29 Radiology Date of Exam:12/06/22 CT ABDOMEN/PELVIS W EXAMINATION: CT abdomen and pelvis with intravenous contrast. TECHNIQUE: Multiple contiguous axial images were obtained through the abdomen and pelvis after the uneventful administration of intravenous contrast. All CT scans use one or more of the following dose optimizing techniques: automated exposure control, MA and/or KvP adjustment based on patient size and exam type or iterative reconstruction. HISTORY: n/v/d with RLQ abd pain and fever COMPARISON: None available. FINDINGS: Lung bases: There is atelectasis or scarring within the lung bases. Solid organs: The liver is normal without focal lesion. The gallbladder is normal. There is no biliary ductal dilation. Pancreas is normal. Spleen is normal. Adrenal glands are normal. The kidneys are normal without hydronephrosis. Bowel: The stomach and small bowel are normal without obstruction. The colon is normal. The appendix is dilated with a large stone at the origin. Appendix measures up to 1.9 cm in diameter. There is surrounding inflammatory stranding within the right lower quadrant. Peritoneum: Trace fluid along the right paracolic gutter and pelvis without loculated fluid collection or free air. No suspicious lymphadenopathy. Vasculature: Normal without aneurysm. Musculoskeletal: No suspicious osseous lesion or compression fracture. Pelvis: The prostate gland is normal. The urinary bladder is normal. IMPRESSION: 1. Findings of acute appendicitis without evidence of abscess or free air. Dictated by: Dictated on workstation # [id number] Dict: 12/06/22 1148 Trans: 12/06/22 1200 CVB [id number] Interpreted by: ANTONELLA WHITFIELD DO Electronically signed by: ANTONELLA WHITFIELD DO 12/06/22 1200 Assessment/Plan Assessment/Plan Assessment/Plan Acute Appendicitis I reviewed the CT myself and spoke with the ED physician. I can see multiple appendicoliths, very dilated appendix and stranding with possible fluid in the pelvis. He has acute appendicitis and needs his appendix out. He has been admitted (probably SDC/Obs), IV fluids, pain medication, anti-emetics as needed, and IV ABX union organizer to OR. Will go to OR for Laparoscopic Appendectomy and all other indicated procedures; will get consent. I discussed the procedure with pt, going over all risks and complications not limited to pain, bleeding, infection, scar and damage to bowel with need for further procedure. All questions answered to his satisfaction. ASTER CRAWLEY DO December 06, 2022 14:00
[2022-12-06] MEDS ORDERED: LIDOCAINE PF 2% 5 ML (XYLOCAINE) VIAL ONE (14:14)
[2022-12-06] MEDS ORDERED: fentaNYL INJ 100 MCG/2 ML AMP ONE (14:14)
[2022-12-06] MEDS ORDERED: MIDAZOLAM 2 MG/2 ML (VERSED) VIAL ONE (14:14)
[2022-12-06] MEDS ORDERED: ONDANSETRON 4 MG/2 ML (SDV) Z0FRAN ONE (14:14)
[2022-12-06] MEDS ORDERED: ROCURONIUM 50 MG/5 ML (ZEMURON) VIAL IV ONE (14:14)
[2022-12-06] MEDS ORDERED: proPOfol 200 MG/20 ML (DIPRIVAN) VIAL IV ONE (14:14)
[2022-12-06] MEDS ORDERED: BUP/EPI 0.5% 1:200,000 (SENSORCAINE) 30 ML VIAL ONE (14:28)
[2022-12-06] MEDS ORDERED: PHENYLEPHRINE 100 MCG/ML 10 ML (ANESTHESIA) SYR ONE (14:52)
[2022-12-06] MEDS ORDERED: NEOSTIGMINE (BLOXIVERZ ) 1 MG/1ML 10 ML VIAL ONE (15:30)
[2022-12-06] MEDS ORDERED: GLYCOPYRROLATE 0.2 MG/ML (ROBINUL) 2 ML VIAL ONE (15:30)
[2022-12-06] MEDS ORDERED: SEVOFLURANE (ULTANE) 15 ML INHAL SOLN ONE (15:38)
--- NOTE | 2022-12-06 15:55 | Anesthesia-General Post-Op ---
General Patient Condition Mental Status/LOC: Same as Preop Cardiovascular: Satisfactory Nausea/Vomiting: Absent Respiratory: Satisfactory Pain: Controlled Complications: Absent Post Op Complications Complications None Follow Up Care/Instructions Patient Instructions None needed. Anesthesia/Patient Condition Patient Condition Patient is doing well, no complaints, stable vital signs, no apparent adverse anesthesia problems. No complications reported per nursing. LORE XIAO CRNA December 06, 2022 15:55
[2022-12-06] MEDS ORDERED: HYDROmorphone 2 MG/ML VIAL (DILAUDID) IV ONE (16:00)
[2022-12-06] MEDS ORDERED: PROMETHAZINE INJ 25 MG/ML (PHENERGAN) AMP IVP ONE (16:00)
[2022-12-06] MEDS ORDERED: MEPERIDINE (DEMEROL) INJ 50 MG/ML IVP ONE (16:00)
[2022-12-06] MEDS ORDERED: ONDANSETRON 4 MG/2 ML (SDV) Z0FRAN IVP PRN (16:00)
[2022-12-06] MEDS ORDERED: morphine INJ 10 MG/ML 1ML (SYR OR VIAL) IVP ONE (16:00)
--- NOTE | 2022-12-06 16:11 | Progress Note-Post Operative ---
Post-Operative Progess Note Surgeon (s)/Crystal Calibrator (s) Surgeon ASTER CRAWLEY DO Crystal Calibrator: none Pre-Operative Diagnosis Acute Appendicitis Post-Operative Diagnosis same Procedure & Operative Findings Date of Procedure 12/06/22 Procedure Performed/Findings PROCEDURE: Laparoscopic appendectomy. COMPLICATIONS: None. INDICATIONS: The patient is a 37 year old male who has been having right lower quadrant abdominal pain. Patient's exam consistent with appendicitis. I discussed risk and benefits of laparoscopic appendectomy and all indicated procedures. The patient understands the risks and benefits and wishes to proceed. Consent was signed on the chart. DESCRIPTION OF PROCEDURE: The patient was taken to the operating suite, prepped and draped in a sterile fashion. Timeout was performed. Local anesthetic was infiltrated just above the umbilicus and 11-blade scalpel was used to make a skin incision. Cautery was used to dissect down to the fascia and scored. Kochers were used to grasp and elevate it and the abdomen was then entered. An 0 Vicryl was placed in a [id number] fashion for closure at the end of the case. The balloon trocar was in- serted into the abdomen and pneumoperitoneum was achieved. Under direct visualization of the laparoscope, a 5 mm trocar was placed in the suprapubic region and a 5 mm trocar was placed in the left lower quadrant. Appendix was located, omentum was stuck down over it. When peeling this back saw necrotic appendix, very inflamed and thickened; pictures taken. Carefully started dissecting it out with blunt dissection and with Ligasure. Able to slowly get down to the base of the appendix and visualize the terminal ileum and the Cecum. Had used the ligasure to dissect the mesoappendix down to the base. Then an Endo-MAJOR 2.5 stapler was fired across the base of the appendix. It was then placed in an Endobag and removed through the 12 mm trocar site. The tissue at base of appendix did not look great, so I elected to place a 19 [place] drain in the pelvis and right paracolic gutter. The abdomen was then irrigated and suctioned. No other pathology noted. The abdomen was then desufflated and the trocars were removed. The 0 Vicryl placed at the beginning of the case was then tied closing the 12 mm fascial defect. Used a 3-0 Nylon to suture the drain in place and it was then hooked up to bulb suction. The skin was then closed using 4-0 Monocryl in a subcuticular fashion. The abdomen was then washed and dried and Skin Affix was placed over the incisions. The patient tolerated the procedure well without any complications and was taken to the recovery room in stable condition. Anesthesia Type GET Estimated Blood Loss Estimated blood loss (mL): scant Specimens/Packing Specimens Removed appendix fibrinous material for culture ASTER CRAWLEY DO December 06, 2022 16:11
[2022-12-06] MEDS ORDERED: ACHYD1T PO (16:14)
[2022-12-06] MEDS ORDERED: AMOX-355 PO ×2 (16:14→19:37)
--- NOTE | 2022-12-06 16:16 | Discharge Inst-Surgical ---
Discharge Inst-Surgical Depart Medication/Instructions New, Converted or Re-Newed RX: Transmitted to Pharmacy Patient Instructions Follow up Appt: Make appointment for 1 week. [phone] Instructions: No lifting greater than 20 pounds. No strenuous activity. May shower in 24 hours, no tub bath or soaking. Use incentive spirometer at home as directed. No Smoking Skin/Wound Care: May remove bandages in am. You need to leave the Dermabond on incision it will fall off on it's own. Symptoms to Report: Appetite Changes, Extremity Discoloration, Numbness/Tingling, Swelling Increased, Bleeding Excessive, Eyesight Changes, Pain Increased, Urine Color Change, Constipation(Persistent), Fever over 101 degree F, Pain/Pressure in chest, Urinating Difficulty, Cough Up/Vomit Blood, Heart Beat Irreg/Pounding, Pain/Pressure in jaw, Cramps in feet or legs, Lightheadedness, Pain/Pressure in shoulder, Diarrhea(Persistent), Memory Changes Suddenly, Questions/Concerns, Weight gain consecutive days, Dizziness/Fainting, Nausea/Vomiting, Shortness of Breath, Weight gain over 2 pounds If questions or concerns contact your physician Or seek help at emergency department. Activity Activity as Tolerated: Yes Activity Instructions: Avoid Stress to Incision Driving Instructions: No Driving/Refer to Dr. Brooks Discharge Diet: No Restrictions Diet After 24 Hours: Clear Liquid if Nauseous If Any Problems/Questions/Issu: Contact Your Physician, Go to Emergency Room Skin/Wound Care Infection Signs and Symptoms: Increased Redness, Foul Odor of Wound, Increased Drainage, Skin Itchy or Has a Rash, Increased Swelling, Temperature Above 101 F Wound Care Comment: heating pad to shoulder or neck tonight for pain, drain bulb teaching Bathing Instructions: Shower Stitches/[place]/Dermabond Dis: Dermabond ASTER CRAWLEY DO December 06, 2022 16:16
[2022-12-06] MEDS ORDERED: HYDR-3820 PO (19:37)
== END 2022-12-06 18:41 | disposition home or self-care (01) ==
LOC: EDUNIT# 10:54 → ER FS 10:58 → UNDOADMOB 13:41 → 4TH 13:41 → SDC 13:42 → 4TH 13:42 → UNDODISOB 18:41 → SDC 18:41
PROVIDERS: ATTEND Surgery
DX: K35.30 Acute appendicitis with localized peritonitis, without perforation or gangrene (principal); Z28.310 Unvaccinated for COVID-19
CPT/HCPCS: 36415; 74177; 80053; 83605; 83690; 85025; 86141; 87040; 87070; 87075; 87076; 87077; 87185; 87186; 87205; 93005; 93041; 96361; 96374; 96375; 96376; Q9967

== ENCOUNTER 2022-12-15 11:12 | Emergency (ER) | payer OTHER ==
[~2022-12-15 11:12] MED LIST changes: +ACHYD1T PO; +AMOX-355 PO; +HYDR-3820 PO
[2022-12-15 11:23] VITALS: BP 138/81
--- NOTE | 2022-12-15 11:34 | ED General ---
General Chief Complaint: General Problems/Pain Stated Complaint: TORN SUTURE Nursing Triage Note: Patient has presented to ER with cc of post op wound drainage. He reports appendicitis and surgery about 10 days ago. This morning he had drainage from the belly button wound. Source of Information: Patient History of Present Illness Date Seen by Provider: Dec 15, 2022 Time Seen by Provider: 11:14 Initial Comments 37 yo male presenting from home with concerns for possible rupture of a stitch from his recent appendectomy. He is scheduled to have his follow-up appointment with Dr. Crawley from the appendectomy tomorrow at 10 AM. Patient still has a KANWAL drain in place but has had minimal output. He denies having fever, chills, nausea, vomiting. He has some mild tenderness with the incision sites and abdomen but states it is improving. He had foul-smelling red drainage from the bellybutton wound that had soaked his T-shirt and a rag. He was worried that he had a stitch come out. The drainage had stopped by the time he arrived in the emergency department. There are some mild redness around the bellybutton in cision site with some induration. He denies any other problems or concerns since the surgery. Timing/Duration: 1 Hour Severity: Moderate Modifying Factors: worse with Movement (As he moved he had drainage coming from the bellybutton incision site) Associated Systoms: No Chest Pain, No Cough, No Diaphoresis, No Fever/Chills, No Headaches, No Nausea/Vomiting, No Rash, No Seizure, No Shortness of Air, No Syncope; Weakness Allergies and Home Medications Allergies Coded Allergies: tramadol (Verified Allergy, Unknown, 02/19/20) Patient Home Medication List Home Medication List Reviewed: Yes Amoxicillin/Potassium Clav (Augmentin 500-125 Tablet) 500 Mg-125 Mg Tablet, 1 EACH PO BID Prescribed by: ASTER CRAWLEY on 12/06/221936 Azithromycin (Azithromycin) 250 Mg Tablet, 250 MG PO UD Prescribed by: SABI VEGA on 06/15/22 0931 Hydrocodone/Acetaminophen (Hydrocodone-Acetamin 10-325 mg) 10 Mg-325 Mg Tablet, 1 EACH PO Q8H Prescribed by: ASTER CRAWLEY on 12/06/221936 Ibuprofen (Ibuprofen) 800 Mg Tablet, 800 MG PO Q8H PRN for PAIN Prescribed by: BOOM RUIZ on 02/19/20 0230 Metoprolol Tartrate (Metoprolol Tartrate) 25 Mg Tablet, 12.5 MG PO BID, (Repo rted) Entered as Reported by: OTONIEL GUERRA on 10/07/211743 Ondansetron (Ondansetron Odt) 4 Mg Tab.rapdis, 4 MG SL Q6H PRN for NAUSEA/VOMITING Prescribed by: MARVA JACKSON on 12/05/22 1510 Promethazine HCl (Promethazine Suppository) 25 Mg Supp.rect, 25 MG RC Q8H PRN for NAUSEA/VOMITING-2ND LINE Prescribed by: MARVA JACKSON on 12/05/22 1510 [Prilosec] , (Reported) Entered as Reported by: OTONIEL GUERRA on 10/07/211743 Review of Systems Review of Systems Constitutional: No chills, No fever; weakness (still feels weak since surgery) EENTM: no symptoms reported Respiratory: no symptoms reported Cardiovascular: no symptoms reported Gastrointestinal: see HPI Genitourinary: no symptoms reported Musculoskeletal: no symptoms reported Skin: see HPI Psychiatric/Neurological: No Symptoms Reported Past Nhghqax-Aumlfv-Bqoalr Hx Patient Social History Tobacco Use?: No Use of E-Cig and/or Vaping dev: No Substance use?: No Alcohol Use?: No Immunizations Up To Date First/Initial COVID19 Vaccinat: not vaccinated Second COVID19 Vaccination Sadiq: not vaccinated Third COVID19 Vaccination Date: not vaccinated Seasonal Allergies Seasonal Allergies: No Past Medical History Surgery/Hospitalization HX: HTN, GERD, Acute appendicitis 12/06/2022 Surgeries: No Respiratory: No Cardiac: Yes Hypertension, Irregular Heartbeat Neurological: No Genitourinary: No Gastrointestinal: Yes Gastroesophageal Reflux Musculoskeletal: No Endocrine: No HEENT: No Cancer: No Psychosocial: No Integumentary: No Blood Disorders: No Family Medical History Diabetes Physical Exam Vital Signs Vital Signs - First Documented 12/15/22 11:23 Temp 37.2 Pulse 115 Resp 16 B/P (MAP) 138/81 (100) Pulse Ox 100 O2 Delivery Room Air Capillary Refill : Height, Weight, BMI Height: '" Weight: lbs. oz. kg; 29.82 BMI Method: General Appearance: No Apparent Distress, WD/WN Cardiovascular: Regular Rate, Rhythm, Normal Peripheral Pulses, Tachycardia Gastrointestinal: Normal Bowel Sounds, No Pulsatile Mass, Soft; No Distended, No Guarding; Tenderness (mild tenderness to abdominal wall with palpation around incision sites. umbilical incision is well approximated and not gaping open. No continued drainage since arriving in the ED. Mild induration and erythema around the incision but no fluctuance) Neurologic/Psychiatric: Alert, Oriented x3 Skin: Warm/Dry Progress/Results/Core Measures Suspected Sepsis SIRS Temperature: Pulse: 115 Respiratory Rate: 16 Blood Pressure 138 /81 Mean: 100 Results/Orders Vital Signs/I&O 12/15/22 11:23 Temp 37.2 Pulse 115 Resp 16 B/P (MAP) 138/81 (100) Pulse Ox 100 O2 Delivery Room Air Capillary Refill : Blood Pressure Mean: 100 Progress Note : Progress Note Potential diagnosis of postoperative seroma, postoperative hematoma, incisional abscess. Even with palpation and applying pressure around the umbilical incision no further drainage was able to be expressed. Patient was afebrile. He did have slight tachycardia of 110-115. Some of this might be anxiety as well since he is worried about the drainage and the incision. I called and spoke with Dr. Crawley at 1124 am. I reviewed the presentation of th e patient and that he had apparent seroma/hematoma that had drained from periumbilical incision. He has had minimal output with his KANWAL drain. Dr. Crawley offered to see him today if the patient wants to be seen today, otherwise he can keep his appointment for tomorrow to be seen. He reports no further need for imaging or labs at this point. When I updated the patient about the discussion with Dr. Crawley he opted to keep his appointment tomorrow. I did encourage him to call and get an appointment today if patient had more concerns or other issues that came up. Advised to keep the incision covered with clean gauze or Band-Aid for today as it may continue to do some more fluid before it is completely done draining. Given a handout about seroma and some education about it. Counseled on follow-up and return precautions. Departure Impression Primary Impression: Seroma, postoperative Qualified Codes: L76.34 - Postprocedural seroma of skin and subcutaneous tissue following other procedure Disposition: 01 HOME, SELF-CARE Condition: Stable Departure-Patient Inst. Decision time for Depature: 11:31 Referrals: ASTER CRAWLEY PANKAJ K MD (PCP/Family) Primary Care Physician Patient Instructions: Seroma Add. Discharge Instructions: It appears you had a seroma or hematoma with your incision from surgery. This is a collection of blood and serous fluids from your body trying to heal. It can build up enough pressure that it will drain out of the incision. Keep your appointment with Dr. Crawley tomorrow for follow up and he can look at this too, but he also said if you were concerned or had more issues you could call his office and get in to see him today. You may need to have some gauze or a bandage over the incision for the next 24 hours as it might have more fluid drain out before it is done All discharge instructions reviewed with patient and/or family. Voiced understanding. Images Torso/Trunk 1 - Mild (Mild area of redness around the umbilical incision. Mild induration but no fluctuance and no continued drainage here in the ED) NURYS PARKS MD Dec 15, 2022 11:34
== END 2022-12-15 11:36 | disposition home or self-care (01) ==
LOC: EDUNIT# 11:12 → ER FS 11:13
DX: K91.872 Postprocedural seroma of a digestive system organ or structure following a digestive system procedure (principal); Z28.310 Unvaccinated for COVID-19
CPT/HCPCS: 99281

== ENCOUNTER 2023-01-25 20:20 | Emergency (ER) | payer OTHER ==
--- NOTE | 2023-01-25 20:32 | ED Chest Pain ---
General Stated Complaint: LIGHT HEADED| DIZZY| CHEST AND ARM PAIN History of Present Illness Date Seen by Provider: Jan 25, 2023 Time Seen by Provider: 20:26 Initial Comments 37-year-old male with PMH of HTN/unknown arrhythmia on metoprolol since 2019, is here with complaints of intermittent chest pain which has been going on for the past few days and worsening a little bit. Patient states that the intensity of pain can go up to 8/10 when the episodes occur. Patient reports that when the chest pain occurs he also feels lightheaded, and that it radiates down his left arm, and he feels his heart is racing when all of this occurs. Patient states that it lasts for a few seconds and then goes back to normal. 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 Denies fever and chills, cough, abdominal pain, nausea and vomiting, diaphoresis, fainting. Patient does not have any significant family history of cardiovascular disease. Allergies and Home Medications Allergies Coded Allergies: tramadol (Verified Allergy, Unknown, 02/19/20) Patient Home Medication List Home Medication List Reviewed: Yes Amoxicillin/Potassium Clav (Augmentin 500-125 Tablet) 500 Mg-125 Mg Tablet, 1 EACH PO BID Prescribed by: ASTER CRAWLEY on 12/06/221936 Azithromycin (Azithromycin) 250 Mg Tablet, 250 MG PO UD Prescribed by: SABI VEGA on 06/15/22 0931 Hydrocodone/Acetaminophen (Hydrocodone-Acetamin 10-325 mg) 10 Mg-325 Mg Tablet, 1 EACH PO Q8H Prescribed by: ASTER CRAWLEY on 12/06/221936 Ibuprofen (Ibuprofen) 800 Mg Tablet, 800 MG PO Q8H PRN for PAIN Prescribed by: BOOM RUIZ on 02/19/20 0230 Metoprolol Tartrate (Metoprolol Tartrate) 25 Mg Tablet, 12.5 MG PO BID, (Reported) Entered as Reported by: OTONIEL GUERRA on 10/07/21 174 Ondansetron (Ondansetron Odt) 4 Mg Tab.rapdis, 4 MG SL Q6H PRN for NAUSEA/VOMITING Prescribed by: MARVA JACKSON on 12/05/22 1510 Promethazine HCl (Promethazine Suppository) 25 Mg Supp.rect, 25 MG RC Q8H PRN for NAUSEA/VOMITING-2ND LINE Prescribed by: MARVA JACKSON on 12/05/22 1510 [Prilosec] , (Reported) Entered as Reported by: OTONIEL GUERRA on 10/07/21 1744 Review of Systems Review of Systems Constitutional: no symptoms reported EENTM: No Symptoms Reported Respiratory: No Symptoms Reported Cardiovascular: Chest Pain, Irregular Heart Rate, Lightheadedness, Palpitations Gastrointestinal: No Symptoms Reported Genitourinary: No Symptoms Reported Musculoskeletal: no symptoms reported Skin: no symptoms reported Psychiatric/Neurological: No Symptoms Reported Endocrine: No Symptoms Reported Hematologic/Lymphatic: No Symptoms Reported Past Dmhjvxn-Pvhyim-Duxltf Hx Immunizations Up To Date First/Initial COVID19 Vaccinat: not vaccinated Second COVID19 Vaccination Sadiq: not vaccinated Third COVID19 Vaccination Date: not vaccinated Seasonal Allergies Seasonal Allergies: No Past Medical History Surgery/Hospitalization HX: HTN, GERD, Acute appendicitis 12/06/2022 Surgeries: No Respiratory: No Cardiac: Yes Hypertension, Irregular Heartbeat Neurological: No Genitourinary: No Gastrointestinal: Yes Gastroesophageal Reflux Musculoskeletal: No Endocrine: No HEENT: No Cancer: No Psychosocial: No Integumentary: No Blood Disorders: No Family Medical History Diabetes Physical Exam Vital Signs Vital Signs - First Documented 01/25/23 20:22 Pulse 79 Resp 16 B/P (MAP) 125/88 (100) Pulse Ox 96 O2 Delivery Room Air Capillary Refill : Height, Weight, BMI Height: '" Weight: lbs. oz. kg; 29.82 BMI Method: General Appearance: No Apparent Distress, WD/WN HEENT: PERRL/EOMI Neck: Full Range of Motion, Normal Inspection, Non Tender, Supple Respiratory: Chest Non Tender, Lungs Clear, Normal Breath Sounds, No Accessory Muscle Use Cardiovascular: Regular Rate, Rhythm, No Edema, No Murmur Gastrointestinal: Normal Bowel Sounds, Non Tender, Soft Neurologic/Psychiatric: Alert, Oriented x3, No Motor/Sensory Deficits Skin: Normal Color Lymphatic: No Adenopathy Progress/Results/Core Measures Results/Orders Lab Results Laboratory Tests Test 01/25/23 20:35 01/25/23 21:10 01/25/23 22:00 Range/Units White Blood Count 6.6 4.3-11.0 10^3/uL Red Blood Count 4.86 4.30-5.52 10^6/uL Hemoglobin 14.6 13.3-17.7 g/dL Hematocrit 44 40-54 % Mean Corpuscular Volume 91 80-99 fL Mean Corpuscular Hemoglobin 30 25-34 pg Mean Corpuscular Hemoglobin Concent 33 32-36 g/dL Red Cell Distribution Width 12.9 10.0-14.5 % Platelet Count 285 130-400 10^3/uL Mean Platelet Volume 9.1 9.0-12.2 fL Immature Granulocyte % (Auto) 0 % Neutrophils (%) (Auto) 53 42-75 % Lymphocytes (%) (Auto) 34 12-44 % Monocytes (%) (Auto) 8 0-12 % Eosinophils (%) (Auto) 4 0-10 % Basophils (%) (Auto) 1 0-10 % Neutrophils # (Auto) 3.5 1.8-7.8 10^3/uL Lymphocytes # (Auto) 2.3 1.0-4.0 10^3/uL Monocytes # (Auto) 0.5 0.0-1.0 10^3/uL Eosinophils # (Auto) 0.3 0.0-0.3 10^3/uL Basophils # (Auto) 0.1 0.0-0.1 10^3/uL Immature Granulocyte # (Auto) 0.0 0.0-0.1 10^3/uL Prothrombin Time 11.9 L 12.2-14.7 SEC INR Comment 0.8 0.8-1.4 Activated Partial Thromboplast Time 31 24-35 SEC Sodium Level 141 135-145 MMOL/L Potassium Level 3.7 3.6-5.0 MMOL/L Chloride Level 104 98-107 MMOL/L Carbon Dioxide Level 25 21-32 MMOL/L Anion Gap 12 5-14 MMOL/L Blood Urea Nitrogen 11 7-18 MG/DL Creatinine 1.04 0.60-1.30 MG/DL Estimat Glomerular Filtration Rate 94 BUN/Creatinine Ratio 11 Glucose Level 108 H 70-105 MG/DL Calcium Level 10.0 8.5-10.1 MG/DL Corrected Calcium 9.8 8.5-10.1 MG/DL Magnesium Level 2.2 1.6-2.4 MG/DL Total Bilirubin 0.3 0.1-1.0 MG/DL Aspartate Amino Transf (AST/SGOT) 17 5-34 U/L Alanine Aminotransferase (ALT/SGPT) 22 0-55 U/L Alkaline Phosphatase 66 40-136 U/L Troponin I < 0.30 < 0.30 <0.30 NG/ML Total Protein 7.3 6.4-8.2 GM/DL Albumin 4.3 3.2-4.5 GM/DL Urine Color YELLOW Urine Clarity CLEAR Urine pH 7.5 5-9 Urine Specific [place] 1.010 L 1.016-1.022 Urine Protein NEGATIVE NEGATIVE Urine Glucose (UA) NEGATIVE NEGATIVE Urine Ketones NEGATIVE NEGATIVE Urine Nitrite NEGATIVE NEGATIVE Urine Bilirubin NEGATIVE NEGATIVE Urine Urobilinogen 0.2 < = 1.0 MG/DL Urine Leukocyte Esterase NEGATIVE NEGATIVE Urine RBC (Auto) TRACE-I H NEGATIVE Urine RBC 10-25 H /HPF Urine WBC NONE /HPF Urine Squamous Epithelial Cells 2-5 /HPF Urine Crystals PRESENT H /LPF Urine Amorphous Sediment MOD YAJAIRA PHOSPHATE H /LPF Urine Bacteria FEW H /HPF Urine Casts NONE /LPF Urine Mucus NEGATIVE /LPF Urine Culture Indicated NO Urine Opiates Screen NEGATIVE NEGATIVE Urine Oxycodone Screen NEGATIVE NEGATIVE Urine Methadone Screen NEGATIVE NEGATIVE Urine Propoxyphene Screen NEGATIVE NEGATIVE Urine Barbiturates Screen NEGATIVE NEGATIVE Ur Tricyclic Antidepressants Screen NEGATIVE NEGATIVE Urine Phencyclidine Screen NEGATIVE NEGATIVE Urine Amphetamines Screen NEGATIVE NEGATIVE Urine Methamphetamines Screen NEGATIVE NEGATIVE Urine Benzodiazepines Screen NEGATIVE NEGATIVE Urine Cocaine Screen NEGATIVE NEGATIVE Urine Cannabinoids Screen NEGATIVE NEGATIVE My Orders Orders - RADHA BEST MD Ekg Tracing (01/25/23 20:23) Continuous Ekg Monitoring (01/25/23 20:32) Cbc With Automated Diff (01/25/23 20:32) Comprehensive Metabolic Panel (01/25/23 20:32) Drug Screen Stat (Urine) (01/25/23 20:32) Magnesium (01/25/23 20:32) Ua Culture If Indicated (01/25/23 20:32) Troponin I Fs (01/25/23 20:32) Aspirin Chewable Tablet (Baby Aspirin Ch (01/25/23 20:45) Protime With Inr (01/25/23 20:33) Partial Thromboplastin Time (01/25/23 20:33) Chest 1 View Ap/Pa Only (01/25/23 20:33) Ekg Tracing (01/25/23 21:53) Troponin I Fs (01/25/23 21:53) Medications Given in ED Current Medications Medications Dose Ordered Sig/Nishant Route Start Time Stop Time Status Last Admin Dose Admin Aspirin 324 mg ONCE ONCE PO 01/25/23 20:45 01/25/23 20:46 DC 01/25/23 20:46 324 MG Vital Signs/I&O 01/25/23 20:22 Pulse 79 Resp 16 B/P (MAP) 125/88 (100) Pulse Ox 96 O2 Delivery Room Air Progress Progress Note : Progress Note 1. ACS RULE OUT: - CXR: no acute findings - CBC/ CMP: unremarkable - Troponin x2: undetectable - EKG x2: non-ischemic - ASA 324 mg in ER -Patient will be needing a Holter monitor as outpatient as soon as possible. Suspect intermittent A-fib versus paroxysmal SVT to be the cause of patient's issues. Patient does not remember what kind of arrhythmia he has, but he is on metoprolol for it. Patient has not seen his dye worker, Dr. Persaud, since 2019 - Cardiac work up in ER has been unremarkable - Concern that pt may be having paroxysmal A-fib versus paroxysmal SVT, which has NOT been seen during the ER visit, however concerning due to history and complaints, patient will definitely benefit from holtor monitor placement. Advised to call PCP office and Cardiology office to order Holtor monitor [place]. -The patient was seen in the ED, and treated appropriately to presentation at a specific point in time. Patient is informed that there is a possibility that disease and illness can evolve and change in acuity rapidly or slowly after patient is discharged from the ER. Precautionary advice given to the patient for immediate return to ER if symptoms worsen or do not resolve, and to seek emergency care sooner rather than later. Pt also advised on the importance of PCP follow up and compliance with management and follow up plan with PCP and/or specialist, as this is part of the management plan. Pt verbally expressed understanding. EKG : EKG Time: 20:28 Rate: 72 Rhythm: Normal Sinus ECG Comparisson: No Previous ECG Available ECG Impression: Nonspecific Changes Diagnostic Imaging Diagonstic Imaging: Xray Plain Films/CT/US/NM/MRI: chest Departure Impression Primary Impression: Ruled out for myocardial infarction Disposition: 01 HOME, SELF-CARE Condition: Stable Departure-Patient Inst. Referrals: CHANTE MCNALLY MD (PCP/Family) Primary Care Physician Patient Instructions: Atrial Fibrillation (DC), Chest Pain (DC), Heart Healthy Diet, Supraventricular tachycardia (SVT) Add. Discharge Instructions: - Cardiac work up in ER has been unremarkable - Concern that pt may be having paroxysmal A-fib versus paroxysmal SVT, which has NOT been seen during the ER visit, however concerning due to history and complaints, patient will definitely benefit from holtor monitor placement. Advised to call PCP office and Cardiology office to order Holtor monitor [place]. - Return to ER if symptoms worsen RADHA BEST MD Jan 25, 2023 20:32
[2023-01-25 20:39] LABS: BASOPHILS # (AUTO) 0.1 10^3/uL (0.0-0.1); BASOPHILS % (AUTO) 1 % (0-10); EOSINOPHILS # (AUTO) 0.3 10^3/uL (0.0-0.3); EOSINOPHILS % (AUTO) 4 % (0-10); HEMATOCRIT 44 % (40-54); HEMOGLOBIN 14.6 g/dL (13.3-17.7); LYMPHOCYTES # (AUTO) 2.3 10^3/uL (1.0-4.0); LYMPHOCYTES % (AUTO) 34 % (12-44); MEAN CORPUSCULAR HEMOGLOBIN 30 pg (25-34); MEAN CORPUSCULAR HGB CONC 33 g/dL (32-36); MEAN CORPUSCULAR VOLUME 91 fL (80-99); MEAN PLATELET VOLUME 9.1 fL (9.0-12.2); MONOCYTES # (AUTO) 0.5 10^3/uL (0.0-1.0); MONOCYTES % (AUTO) 8 % (0-12); NEUTROPHILS # (AUTO) 3.5 10^3/uL (1.8-7.8); NEUTROPHILS % (AUTO) 53 % (42-75); PLATELET COUNT 285 10^3/uL (130-400); WHITE BLOOD COUNT 6.6 10^3/uL (4.3-11.0)
[2023-01-25] MEDS ORDERED: ASPIRIN 81 MG CHEW (CHILDREN'S ASA) PO ONE (20:45)
[2023-01-25 20:50] LABS: INR 0.8 (0.8-1.4); PROTHROMBIN TIME PATIENT 11.9 SEC (12.2-14.7)
[2023-01-25 21:00] LABS: ALANINE AMINOTRANSFERASE 22 U/L (0-55); ALBUMIN 4.3 GM/DL (3.2-4.5); ALKALINE PHOSPHATASE 66 U/L (40-136); BILIRUBIN,TOTAL 0.3 MG/DL (0.1-1.0); BUN/CREATININE RATIO 11; CARBON DIOXIDE 25 MMOL/L (21-32); CHLORIDE 104 MMOL/L (98-107); CREATININE SERUM 1.04 MG/DL (0.60-1.30); GFR ESTIMATED 94; GLUCOSE 108 MG/DL (70-105); MAGNESIUM 2.2 MG/DL (1.6-2.4); POTASSIUM 3.7 MMOL/L (3.6-5.0); SODIUM 141 MMOL/L (135-145); TOTAL PROTEIN 7.3 GM/DL (6.4-8.2)
[2023-01-25 21:10] LABS: BILIRUBIN,URINE NEGATIVE (NEGATIVE); CLARITY,URINE CLEAR; COLOR,URINE YELLOW; GLUCOSE, URINE (UA) NEGATIVE (NEGATIVE); KETONES,URINE NEGATIVE (NEGATIVE); LEUKOCYTE ESTERASE ,URINE NEGATIVE (NEGATIVE); NITRITE,URINE NEGATIVE (NEGATIVE); PH,URINE 7.5 (5-9); PROTEIN,URINE NEGATIVE (NEGATIVE)
[2023-01-25 21:15] LABS: AMORPHOUS SEDIMENT,UR MOD AMOR PHOSPHATE /LPF; BACTERIA,URINE FEW /HPF
--- NOTE | 2023-01-25 21:34 | Diagnostic Imaging Report ---
INDICATION: 37-year-old male chest pain for 5 days. COMPARISONS: 09/24/2022 FINDINGS: Single view of the chest shows normal heart, pulmonary vasculature, pleura and diaphragms with no focal opacities. Soft tissues and bony thorax unremarkable. IMPRESSION: No acute cardiopulmonary changes. Dictated by: Dictated on workstation # [id number]
[2023-01-25 21:37] LABS: AMPHETAMINE SCREEN, URINE NEGATIVE (NEGATIVE); BARBITURATE SCREEN URINE NEGATIVE (NEGATIVE); BENZODIAZEPINES SCREEN URINE NEGATIVE (NEGATIVE); CANNABINOID SCREEN, URINE NEGATIVE (NEGATIVE); COCAINE SCREEN URINE NEGATIVE (NEGATIVE); METHADONE STAT NEGATIVE (NEGATIVE); OPIATE SCREEN URINE NEGATIVE (NEGATIVE); OXYCODONE STAT NEGATIVE (NEGATIVE); PROPOXYPHENE STAT NEGATIVE (NEGATIVE); TRICYCLIC ANTIDEPRESSANTS SCRE NEGATIVE (NEGATIVE)
[2023-01-25 22:51] VITALS: BP 114/79
== END 2023-01-25 22:52 | disposition home or self-care (01) ==
LOC: EDUNIT# 20:20 → ER FS 20:23
DX: R07.9 Chest pain, unspecified (principal); I10 Essential (primary) hypertension; I49.9 Cardiac arrhythmia, unspecified; Z79.899 Other long term (current) drug therapy; Z28.310 Unvaccinated for COVID-19
CPT/HCPCS: 36415; 71045; 80053; 80306; 81000; 83735; 84484; 85025; 85610; 85730; 93005

== ENCOUNTER → 2023-03-19 | Outpatient (CLI) | payer OTHER ==
[~2023-03-19] MED LIST changes: +CATHETER FLUSH 10 ML SYR IV PRN; +HOLD METFORMIN - RECEIVED CONTRAST 20 ML VIAL IV SCH; +IOHEXOL 350 MG/ML 100 ML (OMNIPAQUE 350) VIAL IV ONE; +NS 100 ML (IVPB) BAG IV ONE
--- NOTE | 2023-03-19 10:38 | Diagnostic Imaging Report ---
EXAMINATION: CT abdomen and pelvis with intravenous contrast. TECHNIQUE: Multiple contiguous axial images were obtained through the abdomen and pelvis after the uneventful administration of intravenous contrast. All CT scans use one or more of the following dose optimizing techniques: automated exposure control, MA and/or KvP adjustment based on patient size and exam type or iterative reconstruction. HISTORY: Abdominal pain and swelling status post appendectomy. COMPARISON: 12/06/2022 FINDINGS: Lung bases: The lung bases are clear. Solid organs: The liver is normal without focal lesion. The gallbladder is normal. There is no biliary ductal dilation. Pancreas is normal. Spleen is normal. Adrenal glands are normal. The kidneys are normal without hydronephrosis. Bowel: The stomach and small bowel are normal without obstruction. The colon is normal. The appendix is surgically absent. Peritoneum: There is no intraperitoneal free fluid or free air. No suspicious lymphadenopathy. Vasculature: Normal without aneurysm. Musculoskeletal: There is a large fat-containing periumbilical hernia along the midline through a 6.2 cm defect. Pelvis: The prostate gland is normal. The urinary bladder is normal. IMPRESSION: 1. No acute abnormality in the abdomen or pelvis. 2. Large left periumbilical fat-containing hernia through a 6.2 cm defect. Dictated by: Dictated on workstation # [id number]
== END ==
LOC: RAD 09:04
PROVIDERS: ATTEND Surgery
DX: K42.9 Umbilical hernia without obstruction or gangrene (principal); R22.2 Localized swelling, mass and lump, trunk
CPT/HCPCS: 74177

== ENCOUNTER 2023-04-22 05:30 | Outpatient (CLI) | payer OTHER ==
[~2023-04-22] VITALS: Ht 182.9 cm; Wt 99.8 kg
[~2023-04-22 05:30] MED LIST changes: -CATHETER FLUSH 10 ML SYR IV PRN; -HOLD METFORMIN - RECEIVED CONTRAST 20 ML VIAL IV SCH; -IOHEXOL 350 MG/ML 100 ML (OMNIPAQUE 350) VIAL IV ONE; -NS 100 ML (IVPB) BAG IV ONE
== END 2023-04-23 09:06 | disposition home or self-care (01) ==
LOC: PREOP 05:30
PROVIDERS: ATTEND Surgery
DX: Z01.818 Encounter for other preprocedural examination (principal)

== ENCOUNTER 2023-04-29 08:49 | Observation (INO) | payer OTHER ==
[2023-04-29] VITALS (10 sets, daily range): BP systolic 110–146; BP diastolic 73–95
[~2023-04-29] VITALS: Ht 182 cm; Wt 99.8 kg
[2023-04-29] MEDS ORDERED: ceFAZolin INJECTION 2,000 MG in NS (IVPB) 50 ML 50 ML IV ONE (09:00)
[2023-04-29] MEDS: LACTATED RINGERS 1,000 ML 1,000 ML IV PRN ×2 (09:26→13:49)
[2023-04-29] MEDS ORDERED: FAMOTIDINE INJ 20MG/2ML VIAL ONE (12:09)
[2023-04-29] MEDS ORDERED: FAMOTIDINE INJ 20MG/2ML VIAL IV ONE (12:15)
--- NOTE | 2023-04-29 12:28 | Progress Note-Pre Operative ---
Pre-Operative Progress Note Date H&P Reviewed: Apr 29, 2023 Time H&P Reviewed: 10:58 History & Physical: H&P Reviewed, Patient Examed, No changes noted Pre-Operative Diagnosis: Incarcerated ventral/incisional hernia ASTER CRAWLEY DO Apr 29, 2023 12:28
[2023-04-29] MEDS ORDERED: LIDOCAINE 2% w/EPI 1:100,000 20 ML VIAL ONE (12:42)
[2023-04-29] MEDS ORDERED: MIDAZOLAM INJ 2 MG/2 ML VIAL ONE (12:51)
[2023-04-29] MEDS ORDERED: ONDANSETRON INJECTION 4 MG/2 ML (SDV) ONE (12:51)
[2023-04-29] MEDS ORDERED: fentaNYL INJECTION 100 MCG/2 ML VIAL ONE (12:51)
[2023-04-29] MEDS ORDERED: proPOfol INJECTION 200 MG/20 ML VIAL IV ONE (12:51)
[2023-04-29] MEDS ORDERED: LIDOCAINE PF 2% 5 ML VIAL ONE (12:51)
[2023-04-29] MEDS ORDERED: dexAMETHasone INJ 10 MG/ML 1 ML VIAL ONE (12:51)
[2023-04-29] MEDS ORDERED: GLYCOPYRROLATE INJ 0.2 MG/ML 2 ML VIAL ONE (12:51)
[2023-04-29] MEDS ORDERED: ROCURONIUM 50 MG/5 ML VIAL IV ONE ×2 (12:52→14:06)
[2023-04-29] MEDS ORDERED: LIDOCAINE 2% w/EPI 1:100,000 20 ML VIAL INJ ONE (13:52)
[2023-04-29] MEDS ORDERED: NEOSTIGMINE 1 MG/1ML 10 ML VIAL ONE (14:50)
[2023-04-29] MEDS ORDERED: HYDROmorphone INJECTION 2 MG/ML VIAL ONE (14:50)
--- NOTE | 2023-04-29 15:26 | Anesthesia-General Post-Op ---
General Patient Condition Mental Status/LOC: Same as Preop Cardiovascular: Satisfactory Nausea/Vomiting: Absent Respiratory: Satisfactory Pain: Controlled Complications: Absent Post Op Complications Complications None Follow Up Care/Instructions Patient Instructions None needed. Anesthesia/Patient Condition Patient Condition Patient was doing well in PACU, hypertensive and not in pain so labetalol given IV. He had no complaints, stable vital signs, no apparent adverse anesthesia problems. No complications reported per nursing. DARIN OROURKE DO Apr 29, 2023 15:26
[2023-04-29] MEDS ORDERED: SEVOFLURANE (ULTANE) 15 ML INHAL SOLN ONE (16:36)
--- NOTE | 2023-04-29 17:13 | Progress Note-Post Operative ---
Post-Operative Progess Note Surgeon (s)/Clothing Pattern Preparer (s) Surgeon ASTER CRAWLEY DO Clothing Pattern Preparer: Shanna Pre-Operative Diagnosis Incarcerated ventral/incisional hernia Post-Operative Diagnosis same Procedure & Operative Findings Date of Procedure 04/29/23 Procedure Performed/Findings Laparoscopic Total Abdominal Retrorectus myofascial release with primary repair of hernia and mesh placement Procedure: After informed consent was obtained, the patient was brought to the operating room. He was placed on the table in supine position; the bed was flexed down and slightly rotated to the right. He was then sterilely prepped and draped in normal fashion. The bed was flexed just a little bit. I then used a Veress needle in the left upper quadrant, advanced slowly tested with saline and once I was in then hooked up the Pneumo- peritoneum. Once the pressure was at 15mm, I made an 8mm incision and advanced the robotic trocar slowly with the visiport. Watched as I went layer by layer and then able to get into the abdomen. I then placed two more 8mm robotic ports as far lateral outside the semi-lunaris line to get into the abdomen. The robot was then docked and began by taking down all of the adhesions and contents out of the hernia defect. Laparoscopic instruments were inserted under direct visualization, the [employer] grasper in the left hand and scissors in the right. The defect measured about 6.3cm across and 4.3 cm vertically. I then proceeded to the robotic console. Used the scissors to dissect into the Left retromuscular space, just medial to the semi- lunaris line. I went superiorly to the costal margin and inferiorly below the arcuate line into the preperitoneal plane contiguous with the space of Retzius for at least 8 cm caudad and cephalad to the defect. Dissected the retro- rectus space right on the fascia, pushing the fat and vessels up and going through all the diaphonous tissue and working toward the midline. I was doing this myofascial release to help with a tension-free closure creating these muscle flaps allowing them to relax. By going medial with this dissection from the linea semilunaris, I was maintaining the laterally perforating neurovascular bundles. As in the open technique, there is at least one large benzene washer medially in the superior third of the dissection that needs to be sacrificed, and the inferior one-third dissection is also notable for exposure of the inferior epigastric vessels coursing cephalad. Then started to dissect across the midline in the upper abdomen. The medial edge of the posterior rectus sheath is then divided before it inserts into the linea alba; about 0.5 to 1cm. This allows entrance into the preperitoneal fat plane beneath the linea alba. This dissection is most easily initiated well above and below the midline fascial defect to take advantage of the robust preperitoneal fat and associated peritoneum in virgin areas of the midline. As I worked towards the umbilicus I encountered a large incarcerated incisional hernia. I was attempting to stay in the preperitoneal space, but the tissue was so thin I got back into the abdominal pace. Pictures were taken. Once I was able to get down and take everything down, I then decided to perform the right sided muscular flap again going just lateral to the linea alba about 1 cm getting into the right posterior rectus sheath extending this superiorly and inferiorly starting inferiorly and working my way superiorly to create this muscle flap on the right to again give a space to completely dissect this free. Once I had everything freed up, I then started closing the defect using 0 Strattafix suture (two 18 inche sutures, one from caudad and one from cephalad); running but not tightening it down and then slowly cinching it down like a corset bringing it together. Once this was closed, I then placed a Bard light weight macroporous mesh, [id number]. I then closed the the opening to the retrorectus space on the left side with a 180 day 2-0 V-lock suture; came together nicely. I then closed the hole in the preperitoneum with another 2-0 V-Loc 180- day V. I could see that the macroporous mesh had laid out very nicely. I then carefully allowed the pneumoperitoneum to deflate and watched the mesh stayed in position directly filling up the space completely. I pulled out all of the ports and then closed all incisions with 4-0 Monocryl and Dermabond. A dressing was placed. The patient tolerated the procedure. Sponge and needle count correct at the end of the case. Dr. Dueñas assisted in this case helping to make incisions, close incisions, identify anatomy, pass suture. Anesthesia Type GET Estimated Blood Loss Estimated blood loss (mL): minimal Specimens/Packing Specimens Removed none ASTER CRAWLEY DO Apr 29, 2023 17:13
[2023-04-29] MEDS ORDERED: HYDROcodone/ACETAMINOPHEN 10/325 TABLET PO PRN (17:15)
[2023-04-29] MEDS ORDERED: morphine INJ 10 MG/ML 1ML (SYR OR VIAL) ONE (17:17)
--- NOTE | 2023-04-29 17:17 | Anesthesia-General Post-Op ---
General Patient Condition Mental Status/LOC: Same as Preop Cardiovascular: Satisfactory Nausea/Vomiting: Absent Respiratory: Satisfactory Pain: Controlled Complications: Absent Post Op Complications Complications None Follow Up Care/Instructions Patient Instructions None needed. Anesthesia/Patient Condition Patient Condition Patient is doing well, no complaints, stable vital signs, no apparent adverse anesthesia problems. No complications reported per nursing. ANN MARIE SAEED CRNA Apr 29, 2023 17:17
[2023-04-29] MEDS ORDERED: HYDROmorphone INJECTION 2 MG/ML VIAL IV ONE (17:30)
[2023-04-29] MEDS ORDERED: morphine INJ 10 MG/ML 1ML (SYR OR VIAL) IVP ONE (17:30)
[2023-04-29] MEDS ORDERED: PROMETHAZINE INJ 25 MG/ML VIAL IVP ONE (17:30)
[2023-04-29] MEDS ORDERED: MEPERIDINE INJ 50 MG/ML VIAL IVP ONE (17:30)
[2023-04-29] MEDS ORDERED: ONDANSETRON INJECTION 4 MG/2 ML (SDV) IVP PRN (17:30)
[2023-04-29] MEDS: LACTATED RINGERS 1,000 ML 1,000 ML IV SCH (18:26)
[2023-04-29] MEDS: ceFAZolin INJECTION 2,000 MG in NS (IVPB) 50 ML 50 ML IV SCH (20:23)
[2023-04-29] MEDS ORDERED: meTOprolol TARTRATE (IR) 25 MG TABLET ONE (20:49)
[2023-04-29] MEDS: meTOprolol TARTRATE (IR) 25 MG TABLET PO SCH (20:50)
[2023-04-29] MEDS: ONDANSETRON INJECTION 4 MG/2 ML (SDV) IVP PRN (21:33)
[2023-04-30] MEDS: LACTATED RINGERS 1,000 ML 1,000 ML IV SCH (01:41)
[2023-04-30 04:19] VITALS: BP 106/61
[2023-04-30] MEDS: ceFAZolin INJECTION 2,000 MG in NS (IVPB) 50 ML 50 ML IV SCH (04:55)
[2023-04-30 07:42] VITALS: BP 115/62
[2023-04-30] MEDS ORDERED: FLUT9.9S NS (08:58)
[2023-04-30] MEDS ORDERED: OMEP-401 PO (08:58)
[2023-04-30] MEDS: meTOprolol TARTRATE (IR) 25 MG TABLET PO SCH (09:00)
[2023-04-30] MEDS ORDERED: PANTOPRAZOLE INJECTION 40 MG VIAL IVP SCH (09:00)
--- NOTE | 2023-04-30 09:30 | Progress Note - Surgery ---
RIYA WARD 04/30/23 0930: Subjective Date Seen by a Provider: Apr 30, 2023 Time Seen by a Provider: 08:50 Subjective/Events-last exam Juanito Fagan is feeling a little better this morning compared to yesterday after the surgery. His abdominal pain is currently a 4/10 but yesterday was 9/ 10. The pain is exacerbated with movement and decreases significantly when he remains still, but overall feels like his pain is improving and reasonably controlled. He has been tolerating his diet of clears well. He also experienced some burning with urination that has also decreased in intensity and now only has a slight burn with urination. Patient has not had a bowel movement and has also not passed any gas today or last night. He has been able to walk to and from the bathroom reasonably well this morning but did have some light headedness last night when he tried to get up. He also felt his heart was racing last night and was restarted on his [employer] metoprolol which has decreased his heart rate closer to normal. Incision for port sites look good this morning and have no surrounding erythema. There is some ecchymosis superior to the umbilicus. Review of Systems General: No Chills, No Night Sweats HEENT: Head Aches (dull ache acrose the forhead 2/10); No Visual Changes, No Eye Pain, No Ear Pain, No Dysphasia; Sore Throat Pulmonary: No Dyspnea, No Cough Cardiovascular: No: Chest Pain, Palpitations Gastrointestinal: Nausea (some nausea yesterday but not any today), Abdominal Pain (some ache pain that is sharp with movment or touch); No: Vomiting Genitourinary: Dysuria; No Frequency Neurological: No: Numbness (no numbness in the lower extremities) Objective Exam Vital Signs Date Time Temp Pulse Resp B/P (MAP) Pulse Ox O2 Delivery O2 Flow Rate FiO2 04/30/23 07:42 37.1 97 17 115/62 (79) 93 Room Air 04/30/23 04:19 36.9 99 18 106/61 (76) 94 Room Air 04/29/23 23:05 37.5 110 18 128/73 (91) 93 Room Air 04/29/23 20:25 Room Air 04/29/23 19:20 36.8 108 17 138/87 (104) 91 Room Air 04/29/23 17:50 Room Air 04/29/23 17:48 36.3 104 16 146/89 (108) 93 Room Air 04/29/23 17:40 36.4 18 142/91 (108) 93 Room Air 04/29/23 17:40 Room Air 04/29/23 17:30 18 137/90 (106) 98 OxyMask 10.00 04/29/23 17:25 OxyMask 10.00 04/29/23 17:20 17 127/95 (106) 98 OxyMask 10.00 04/29/23 17:10 14 141/77 (98) 98 OxyMask 10.00 04/29/23 17:10 OxyMask 10.00 04/29/23 17:00 19 130/80 (97) 100 OxyMask 10.00 04/29/23 16:56 OxyMask 10.00 04/29/23 16:56 36.2 16 110/78 (89) 98 OxyMask 10.00 I & O 04/30/23 07:00 Intake Total 2570 ml Output Total 1185 ml Balance 1385 ml Capillary Refill : General Appearance: No Apparent Distress, WD/WN HEENT: PERRL/EOMI, Moist Mucous Membranes; No Pharyngeal Erythema Neck: Non Tender, Supple Respiratory: Lungs Clear, Normal Breath Sounds, No Accessory Muscle Use Cardiovascular: No Edema, No Murmur, Normal Peripheral Pulses, Tachycardia Peripheral Pulses: 3+ Dorsalis Pedis (R), 3+ Left Dors-Pedis (L), 3+ Radial Pulses (R), 3+ Radial Pulses (L) Gastrointestinal: guarding, tenderness (Patient is extremly tender to light touch superior to umbilicus and left quadrant ) Extremity: Non Tender, No Pedal Edema Neurologic/Psychiatric: Alert Skin: Normal Color, Warm/Dry, Ecchymosis (superior to the ubilicus) Lymphatic: No Adenopathy (cervical or supraclavicular ) Results Lab Microbiology 04/29/23 MRSA Screen - Final, Complete MRSA not isolated Assessment/Plan Assessment/Plan Assessment/Plan Ventral/incisional hernia repair with mesh placement POD#1 Abdominal Pain Plan: Advance diet to puree and plan to discharge patient if diet is tolerated well ASTER WILLIAMSON DO 04/30/23 1416: Subjective Time Seen by a Provider: 12:06 Subjective/Events-last exam Pt seen and examined, states he feels tired and has some pain; but pain is improving. He is tolerating clears and wants to eat more. Review of Systems HEENT: Head Aches (dull ache acrose the forhead 2/10) Pulmonary: No Dyspnea, No Cough Cardiovascular: No: Chest Pain, Palpitations Gastrointestinal: Nausea (some nausea yesterday but not any today), Abdominal Pain (some ache pain that is sharp with movment or touch); No: Vomiting Objective Exam General Appearance: No Apparent Distress, WD/WN HEENT: PERRL/EOMI, Moist Mucous Membranes Respiratory: Lungs Clear, Normal Breath Sounds, No Accessory Muscle Use, No Respiratory Distress Cardiovascular: Regular Rate, Rhythm, No Edema, No Murmur Gastrointestinal: soft, guarding, tenderness (Patient is extremly tender to light touch superior to umbilicus and left quadrant ), other (incisions are c/d/i) Skin: Ecchymosis (superior to the ubilicus) Assessment/Plan Assessment/Plan Assessment/Plan Ventral/incisional hernia repair with mesh placement POD#1 Abdominal Pain Plan: Advance diet to puree and plan to discharge patient if diet is tolerated well Supervisory-Addendum Brief Verification & Attestation Participated in pt care: history, MDM, physical Personally performed: exam, history, MDM, supervision of care Care discussed with: Medical Student Procedures: n/a Verification and Attestation of Medical Student E/M Service A medical student performed and documented this service. I then reviewed and verified all information documented by the medical student and made suresh fications to such information, when appropriate. I personally performed a physical exam, medical decision making and then discussed any differences between the notes and made revisions as necessary to create one note. Aster Williamson , 04/30/23 , 14:16 RIYA WARD Apr 30, 2023 09:30 ASTER WILLIAMSON DO Apr 30, 2023 14:16
[2023-04-30] MEDS: ONDANSETRON INJECTION 4 MG/2 ML (SDV) IVP PRN (10:16)
[2023-04-30 11:49] VITALS: BP 123/73
[2023-04-30] MEDS ORDERED: ACHYD1T PO (14:17)
--- NOTE | 2023-04-30 14:19 | Discharge Inst-Surgical ---
Discharge Inst-Surgical Depart Medication/Instructions New, Converted or Re-Newed RX: Transmitted to Pharmacy Patient Instructions Follow up Appt: Make appointment for 1 week. [phone] Instructions: No lifting greater than 20 pounds. No strenuous activity. May shower in 24 hours, no tub bath or soaking. Use incentive spirometer at home as directed. No Smoking Skin/Wound Care: May remove bandages in am. You need to leave the Dermabond on incision it will fall off on it's own. Symptoms to Report: Appetite Changes, Extremity Discoloration, Numbness/Tingling, Swelling Increased, Bleeding Excessive, Eyesight Changes, Pain Increased, Urine Color Change, Constipation(Persistent), Fever over 101 degree F, Pain/Pressure in chest, Urinating Difficulty, Cough Up/Vomit Blood, Heart Beat Irreg/Pounding, Pain/Pressure in jaw, Cramps in feet or legs, Lightheadedness, Pain/Pressure in shoulder, Diarrhea(Persistent), Memory Changes Suddenly, Questions/Concerns, Weight gain consecutive days, Dizziness/Fainting, Nausea/Vomiting, Shortness of Breath, Weight gain over 2 pounds If questions or concerns contact your physician Or seek help at emergency department. Activity Activity as Tolerated: Yes Activity Instructions: Avoid Pulling & Pushing, Avoid Stress to Incision Diet Discharge Diet: No Restrictions Diet After 24 Hours: Clear Liquid if Nauseous If Any Problems/Questions/Issu: Contact Your Physician, Go to Emergency Room Skin/Wound Care Infection Signs and Symptoms: Increased Redness, Foul Odor of Wound, Increased Drainage, Skin Itchy or Has a Rash, Increased Swelling, Temperature Above 101 F Bathing Instructions: Shower Stitches/Wallis/Dermabond Dis: ASTER Gonzales DO Apr 30, 2023 14:18
== END 2023-04-30 15:15 | disposition home or self-care (01) ==
LOC: SDC 08:49 → 4TH 17:09 → UNDOADMOB 17:48 → UNDODISOB 04-30 15:15
PROVIDERS: ADMIT Surgery; ATTEND Surgery
DX: K43.0 Incisional hernia with obstruction, without gangrene (principal); K66.0 Peritoneal adhesions (postprocedural) (postinfection); E66.9 Obesity, unspecified; Z68.30 Body mass index [BMI] 30.0-30.9, adult
CPT/HCPCS: 49594; 87081; 94664; 96366; 96375 ×2; 96376; G0378; G0379